=== PATIENT | female | born 1960 | race Caucasian/White ===

== ENCOUNTER 2019-07-17 08:32 | Outpatient (CLI) | payer OTHER, SELFPAY ==
--- NOTE | ~2019-07-17 | US_ITS ---
US right upper quadrant DATE: 07/17/2019 09:32 INDICATION: Elevated liver enzymes TECHNIQUE: Real-time imaging of liver, pancreas, gallbladder areas COMPARISON: 07/19/2016 gallbladder ultrasound 11/30/2017 MRI abdomen examination 11/07/2017 CT abdomen pelvis FINDINGS: No hepatic or pancreatic space-occupying mass lesion is evident. There is hepatic steatosis . No hepatopedal portal venous flow direction. The common bile duct measures 3-6 mm, within normal range. No gallstones or gallbladder wall thickeni ng or abnormal pericholecystic fluid are identified. Negative sonographic Nguyen's sign. IMPRESSION: Hepatic steatosis Reviewed, dictated and finalized at [facility]. Reviewed, dictated and finalized at location A. IMPRESSION: Hepatic steatosis
== END 2019-07-17 08:33 | disposition home or self-care (01) ==
PROVIDERS: PCP Family Medicine; Visit Provider Family Medicine
DX: R74.0 Nonspecific elevation of levels of transaminase and lactic acid dehydrogenase [LDH] (principal); K76.0 Fatty (change of) liver, not elsewhere classified
CPT/HCPCS: 76705

== ENCOUNTER 2019-09-04 07:39 | Outpatient (CLI) | payer OTHER, SELFPAY ==
--- NOTE | ~2019-09-04 | MM_ITS ---
EXAMINATION: MM screening [facility] BI w travon HISTORY: Screening mammogram TECHNIQUE: Craniocaudal and mediolateral oblique 3-D tomosynthesis images were obtained and synthetic 2-D images were generated. CAD analysis was submitted and interpreted. COMPARISON: Comparison to multiple prior studies sequentially, with oldest reviewed study dated 12/09. BREAST PARENCHYMAL COMPOSITION: There are scattered areas of fibroglandular density. FINDINGS: There are postsurgical lumpectomy changes in the right breast. There is no evidence of susp icious mass, calcification, or architectural distortion to suggest malignancy in either breast. There has been no suspicious interval change. IMPRESSION: 1. No mammographic evidence of malignancy. 2. Recommend routine screening mammography in one year. BI-RADS Category 1: Negative Reviewed, dictated and finalized at location A.
== END 2019-09-04 07:40 | disposition home or self-care (01) ==
PROVIDERS: PCP Family Medicine; Visit Provider Family Medicine
DX: Z12.31 Encounter for screening mammogram for malignant neoplasm of breast (principal)
CPT/HCPCS: 77063; 77067

== ENCOUNTER 2019-10-29 11:45 | Emergency (ER) | payer OTHER, SELFPAY ==
--- NOTE | ~2019-10-29 | XR_ITS ---
EXAMINATION: XR chest 1V portable DATE: 10/29/2019 12:52 INDICATION: Headache. TECHNIQUE: A single frontal view of the chest was obtained. COMPARISON: Chest 2 views 05/20/2017, CT abdomen and pelvis 11/07/2017 FINDINGS: The chest demonstrates clear lungs without pneumonia, pleural effusion, or pneumothorax. Th e heart size is normal. There is a prominent right paracardial fat pad. IMPRESSION: 1. No acute cardiopulmonary disease. Reviewed, dictated and finalized at location A.
--- NOTE | ~2019-10-29 | CT_ITS ---
EXAMINATION: CTA brain EXAM DATE: 10/29/2019 13:36 INDICATION: Occipital headache. TECHNIQUE: Noncontrast head CT. Spiral CT angiogram cerebral arteries performed with intravenous in jection of 100 mL Omnipaque 350. Axial, coronal and sagittal images reviewed. Additional reformatted images created on dedicated 3-D workstation. The dose-length product (DLP) for this examination was 970.45 mGy-cm. The exposure was tailored according to patient size, and iterative reconstruction ( ASIR) was used as additional dose reduction technique. Comparison is made to prior examination from . FINDINGS: Minimal right carotid siphon arterial sclerosis without stenosis. There is left-sided post erior communicating artery dominant posterior cerebral artery. There is no distal carotid or verte bral basilar arterial dissection or fibromuscular dysplasia. There are no cerebral artery aneurysms. There is symmetric cerebral artery arborization. The sagittal, transverse and sigmoid sinuses enhance normally, no venous sinus thrombosis. Internal cerebral veins also enhance normally. There is no acute intraparenchymal hemorrhage. No evidence of intraparenchymal brain mass lesion. N o evidence of acute infarction. There is no mass effect or midline shift. There is no obstructive hyd rocephalus suspected. There are no extra-axial collections. There are no calvarial acute fractures. There are no areas of abnormal enhancement on the postcontrast images. IMPRESSION: 1. Unremarkable CTA brain exam. Reviewed, dictated and finalized at location B.
[2019-10-29 11:51] VITALS: BP 156/80; PULSE 94; RESP 18; TEMP 36.5; O2SAT 99
[2019-10-29 11:59] VITALS: BP 156/80; PULSE 94; RESP 18; O2SAT 99
[2019-10-29 12:30] VITALS: BP 125/70; PULSE 92; RESP 21; O2SAT 98
[2019-10-29] MEDS: KETOROLAC 30 MG/ML VIAL (*BKC) IV PUSH (12:44)
--- NOTE | 2019-10-29 12:46 | ED.HA ---
HPI - Headache General Chief Complaint: Headache Stated Complaint: hernández x 2 weeks/dizzy/vomiting Time Seen by Provider: 10/29/19 12:24 Source: patient Mode of arrival: ambulatory Limitations: no limitations History of Present Illness HPI Narrative: 59 years old white female presents with occipital headache, dull aching started 2 weeks ago, constant, no aggravating or relieving factors, probably get worse if she turns her head quickly. Patient reports intermittent radiation to the frontal area which is like sharp stabbing pain. Patient denies any fever, chills, upper respiratory symptoms, sore throat, ear aches, vision abnormality. Patient report been having intermittent nausea in the last 3 days, start vomiting since 2 PM yesterday. Patient denies similar symptoms or exposure to anybody known to have COVID-19. Patient have history of diabetes, hyperlipidemia, hypothyroidism, quit smoking 11 years ago, drinks occasionally, does not use drugs. Related Data Home Medications Medication Instructions Recorded Confirmed gabapentin 300 mg capsule 300 mg PO BID 05/25/19 10/29/19 blood-glucose meter #1 each 10/04/19 10/29/19 glimepiride 2 mg tablet 2 mg PO BID tablet 10/29/19 10/29/19 metformin 500 mg tablet,extended 500 mg PO BID 10/29/19 10/29/19 release 24 hr semaglutide 0.25 mg SUB-Q WEEKLY 10/29/19 10/29/19 Allergies Allergy/AdvReac Type Severity Reaction Status Date / Time codeine AdvReac Unknown Nausea Verified 10/29/19 11:56 hydrocodone AdvReac Unknown Nausea and Verified 10/29/19 11:56 Vomiting morphine AdvReac Unknown Nausea and Verified 10/29/19 11:56 Vomiting Opioids - Morphine Analogues AdvReac Unknown Nausea and Verified 10/29/19 11:56 Vomiting oxycodone AdvReac Unknown Nausea and Verified 10/29/19 11:56 Vomiting OPIOIDS AdvReac Intermediate Vomiting Uncoded 10/29/19 11:56 HYDROMORPHONE HCL AdvReac Unknown Nausea and Uncoded 10/29/19 11:56 Vomiting Review of Systems Review of Systems: Narrative: CONSTITUTIONAL: Denies fever, chills, or sweats. EYES: Denies visual changes, redness, or discharge. ENT: Denies rhinorrhea, congestion, sore throat, or otalgia. CARDIOVASCULAR: Denies chest pain, palpitations, or edema. RESPIRATORY: Denies cough or dyspnea. GASTROINTESTINAL: Denies abdominal pain, nausea, vomiting, or diarrhea. GENITOURINARY: Denies dysuria or hematuria. SKIN: Denies rash or itching. MUSCULOSKELETAL: Denies back pain, joint pain, or myalgia. NEUROLOGIC: Denies headache, numbness, or weakness. PSYCHIATRIC: Denies anxiety or depression. [facility] Past Medical History Medical History Diabetes mellitus, new onset Hyperlipidemia Hypothyroidism Family History Family History Father Diabetes mellitus Family history of lung cancer Family history of coronary artery disease Grandparent Cerebrovascular accident Family history of lung cancer Other Family history of chronic obstructive pulmonary disease Social History Social History Smoking status: Former smoker Smoking end date: 03/10/08 Alcohol intake: current Gender identity (if verbalized by the patient): Female Sexual Orientation (if Verbalized by the Patient): Straight or Heterosexual Exam Narrative: Exam Narrative: General appearance: Well-developed, well-nourished Skin: Normal color Head: Normocephalic, nontraumatic Eyes: Clear conjunctiva ENT: Oropharynx normal, ears normal, nose normal Neck: Supple, nontender Chest and respiratory: Airway patent, no respiratory distress, no accessory muscle use Heart: Regular rate/rhythm Abdomen: Soft, nontender, no organomegaly, quiet bowel sounds Vascular: Normal peripheral pulses, normal capillary refill. Musculoskeletal: Normal range of motion, nontender back Neurologic: Alert and oriented ?3, [employer] is normal as teste
[2019-10-29 12:48] LABS: Basophils Percent Auto 0.5 % (0.2-1.2); Eosinophils Absolute Auto 0.1 K/mm3 (0-0.3); Eosinophils Percent Auto 0.8 % (0-4.4); Hematocrit 52.1 % (37.0-47.0); Hemoglobin 17.1 g/dL (12.0-15.0); Immature Granulocyte Absolute 0.06 K/mm3 (0.00-0.031); Immature Granulocyte Percent A 0.8 % (0-0.5); Lymphocytes Absolute Auto 1.41 K/mm3 (0.9-3.2); Lymphocytes Percent Auto 18.3 % (18.3-44.2); Mean Corpuscular HGB Conc 32.8 g/dl (32-36); Mean Corpuscular Hemoglobin 29.9 pg (26-34); Mean Corpuscular Volume 91.1 fl (80-100); Mean Platelet Volume 10.3 fl (7.4-10.4); Monocytes Absolute Auto 0.4 K/mm3 (0.1-0.6); Monocytes Percent Auto 4.8 % (2.6-8.5); Neutrophils Absolute Auto 5.8 K/mm3 (1.3-6.7); Neutrophils Percent Auto 74.8 % (45.5-73.1); Platelet Count Result 153 k/mm3 (150-375); Red Blood Count 5.72 M/mm3 (4.2-5.4); Red Cell Distribution Width 13.5 % (11.5-14.5); White Blood Count 7.7 K/mm3 (4.5-10.0)
[2019-10-29 12:59] LABS: Alanine Aminotransferase 95 U/L (4-35); Albumin Level 4.7 g/dL (3.5-5.1); Alkaline Phosphatase 80 U/L (38-126); Anion Gap 10 mmol/L (8-16); Aspartate Amino Transferase 77 U/L (14-36); Blood Urea Nitrogen 12 mg/dL (7-17); Calcium 9.4 mg/dL (8.4-10.2); Carbon Dioxide 31 mmol/L (22-30); Chloride 96 mmol/L (98-107); Estimated CRCL calculation 100 ml/min; Estimated Glomerular Filt Rate > 60; Glucose 196 mg/dL (65-105); Potassium 3.9 mmol/L (3.4-5.0); Sodium 137 mmol/L (137-145)
[2019-10-29 13:02] LABS: CRP 1.2 mg/dL (<1.0)
--- NOTE | 2019-10-29 13:17 | PC.NURSE ---
PT AMBULATORY WITH STEADY GAIT TO RESTROOM
--- NOTE | 2019-10-29 13:27 | PC.NURSE ---
PT TO CT
[2019-10-29 13:35] LABS: Erythrocyte Sedimentation Rate 8 mm/hr (0-20)
[2019-10-29 13:46] VITALS: BP 137/77; PULSE 85; RESP 18; O2SAT 95
[2019-10-29 13:50] LABS: Add Urine Microscopic? YES; Appearance Urine Clear (Clear); Bilirubin Urine Negative (Negative); Blood Urine Negative (Negative); Color Urine Yellow (Yellow); Glucose Urine UA 1+ mg/dL (Negative); Ketones Urine Trace mg/dL (Negative); Leukocyte Esterase Ur Negative LEU/UL (Negative); Mucus Urine Few /lpf; Nitrate Urine Negative (Negative); Protein Urine Negative (Negative); Specific Grav Ur 1.018 (1.001-1.035); Squamous Epithelial Cell Urine Moderate /hpf (Few); Transitional Epi Cells Urine Rare /hpf (None Seen)
[2019-10-29 14:28] VITALS: BP 134/81; PULSE 77; RESP 18; O2SAT 95
--- NOTE | 2019-10-29 15:11 | PC.NURSE ---
PT PO CHALLENGED AT THIS TIME, PER ERP DUNN VERBAL ORDER.
[2019-10-29 15:43] VITALS: BP 136/83; PULSE 92; RESP 15; O2SAT 98
== END 2019-10-29 15:44 | disposition home or self-care (01) ==
PROVIDERS: Emergency Provider Emergency Medicine; PCP Family Medicine
DX: R51 Headache (principal); E11.9 Type 2 diabetes mellitus without complications; Z79.84 Long term (current) use of oral hypoglycemic drugs; E03.9 Hypothyroidism, unspecified; Z87.891 Personal history of nicotine dependence
CPT/HCPCS: 36415; 70496; 71045; 80053; 81001; 85025; 85652; 86140; 96374; 99284; J1885; Q9967

== ENCOUNTER 2020-01-24 07:52 | Outpatient (CLI) | payer OTHER, SELFPAY ==
--- NOTE | ~2020-01-24 | DEXA_ITS ---
Bone Density Report Name: Rola Zaragoza Age: 59 Sex: Female Ethnicity: White Date of : 1960 Indication: postmenopausal; prior fracture; cancer; hysterectomy; Referring Provider: Landon, Vivian García Study: Bone densitometry was performed. Exam Date: January 24, 2020 Accession number: [id number] Bone Density: Region BMD T-score Z-score Classification AP Spine (L3, L4) 1.068 -0.3 1.1 Normal Femoral Neck (Left) 0.825 -0.2 1.0 Normal Total Hip (Left) 1.024 0.7 1.6 Normal Total Hip Bilateral Avg 1.012 0.6 1.5 Normal Femoral Neck (Right) 0.853 0.0 1.3 Normal Total Hip (Right) 0.998 0.5 1.4 Normal World Health Organization criteria for BMD impression classify patients as: Normal (T-score at or above -1.0), Osteopenia (T-score between -1.0 and -2.5), or Osteoporosis (T-score at or below -2.5). 10-year Fracture Risk: FRAX not reported because: All T-scores for Spine Total, Hip Total, Femoral Neck at or above -1.0 Clinical Information Provided by Patient: Has had a low trauma fracture Has used the following medications: Vitamin D Has the following medical conditions: Cancer, Hysterectomy Patient maximum height was 64 Menopause Age: 50 Drinks caffeinated beverages Onset of menses at age 16 Number of children 2 Impression: The patient has normal bone mass. The patient has risk factors, including: previous fracture. Discussion: BONE DENSITY IS ABOVE THE MINIMUM DESIRABLE LEVEL AT ALL SKELETAL SITES TESTED. This patient?s bone mineral density is above the minimum desirable level (T-score -1.0 or better) at all sites measured. The patient should follow a healthful lifestyle (good nutrition with adequate calcium and vitamin D, and appropriate weight-bearing exercise). Follow-Up: Consider repeating this study in 5 years or sooner if there is some new clinical indication. Reported by: [facility] on 01/24/2020 8:15:00 AM. Reviewed, dictated and finalized at location A.
== END 2020-01-24 07:53 | disposition home or self-care (01) ==
LOC: ANHIMG 07:55
PROVIDERS: PCP Family Medicine; Referring Provider Internal Medicine Medical Oncology; Visit Provider Internal Medicine Endocrinology, Diabetes & Metabolism
DX: N95.9 Unspecified menopausal and perimenopausal disorder (principal); Z78.0 Asymptomatic menopausal state
CPT/HCPCS: 77080

== ENCOUNTER 2020-05-08 09:15 | Outpatient (RCR) | payer OTHER, SELFPAY ==
[2020-03-16 14:05] VITALS: BMI 30.2
[2020-03-16 14:07] VITALS: BMI 30.2
== END 2020-05-30 16:53 | disposition home or self-care (01) ==
LOC: ANHDMC 09:15
PROVIDERS: PCP Family Medicine
DX: E11.65 Type 2 diabetes mellitus with hyperglycemia (principal); Z71.3 Dietary counseling and surveillance; Z71.89 Other specified counseling
CPT/HCPCS: 97802; G0108

== ENCOUNTER → 2020-07-28 07:31 | Outpatient (CLI) | payer OTHER, SELFPAY ==
[2020-07-28 19:22] LABS: SARS-CoV-2 RNA PCR Negative
== END ==
PROVIDERS: PCP Family Medicine; Visit Provider Internal Medicine Gastroenterology
DX: Z01.812 Encounter for preprocedural laboratory examination (principal); Z20.822 Contact with and (suspected) exposure to COVID-19
CPT/HCPCS: C9803; U0003; U0005

== ENCOUNTER 2020-07-31 00:50 | Day surgery (SDC) | payer OTHER, SELFPAY ==
[2020-07-24 10:17] VITALS: BMI 30.6
[2020-07-31 09:01] VITALS: BP 145/83; PULSE 85; RESP 18; TEMP 36.1; O2SAT 97; BMI 30.7
--- NOTE | 2020-07-31 09:03 | WPDANESEPPF ---
Anes - Initial Pre Proc Eval Procedure: Operation Date: 07/31/20 09:45 Proposed Procedures p Screening Colonoscopy - Carlitos Cade MD Date/Time: 07/31/20 09:03 Surgeon: Carlitso Cade MD Pre Op Diagnosis: neoplasm screening Patient Data Age: 60 Gender: F Height: 5 ft 4 in Weight: 81 kg Allergies Allergy/AdvReac Type Severity Reaction Status Date / Time codeine AdvReac Unknown Nausea Verified 07/31/20 08:58 hydrocodone AdvReac Unknown Nausea and Verified 07/31/20 08:58 Vomiting morphine AdvReac Unknown Nausea and Verified 07/31/20 08:58 Vomiting Opioids - Morphine Analogues AdvReac Unknown Nausea and Verified 07/31/20 08:58 Vomiting oxycodone AdvReac Unknown Nausea and Verified 07/31/20 08:58 Vomiting OPIOIDS AdvReac Intermediate Vomiting Uncoded 07/31/20 08:58 HYDROMORPHONE HCL AdvReac Unknown Nausea and Uncoded 07/31/20 08:58 Vomiting Home Medications Medication Instructions Recorded Confirmed Type gabapentin 300 mg capsule 300 mg PO BID 05/25/19 07/31/20 History blood sugar diagnostic #100 each 07/22/19 07/31/20 Rx blood sugar diagnostic #100 each 08/16/19 07/31/20 Rx blood-glucose meter #1 each 10/04/19 07/31/20 History acetaminophen-caffeine [Excedrin 1 tablet PO Q6H PRN #20 tablet 10/29/19 07/31/20 Rx Tension Headache] metformin 500 mg tablet,extended 500 mg PO BID 10/29/19 07/31/20 History release 24 hr semaglutide 0.5 mg SUB-Q WEEKLY 10/29/19 07/31/20 History levothyroxine 50 mcg tablet 50 mcg PO DAILY #90 tablet 01/24/20 07/31/20 Rx insulin degludec 100 unit/mL (3 30 unit SUBCUT QPM 01/31/20 07/31/20 History mL) subcutaneous pen insulin lispro 100 unit/mL 1 sliding scale dose SUBCUT 01/31/20 07/31/20 History subcutaneous cartridge USEASDIRECTD atorvastatin 20 mg PO DAILY 07/24/20 07/31/20 History black cohosh 540 mg PO DAILY 07/24/20 07/31/20 History cholecalciferol (vitamin D3) 50 mcg PO DAILY 07/24/20 07/31/20 History [Vitamin D3] esomeprazole magnesium 40 mg PO BID 07/24/20 07/31/20 History fenofibrate 160 mg PO HS 07/24/20 07/31/20 History wothqznf-apyg-ET-calcium-mins 1 tablet PO DAILY 07/24/20 07/31/20 History [Women's One Daily] Patient hx anesthesia problems: none Family hx anesthesia problems: none PMFSH Past Medical History Medical History (Updated 07/31/20 @ 09:03 by Ronaldo Santiago MD) Breast cancer Diabetes mellitus, new onset HTN (hypertension) Hyperlipidemia Hypothyroidism Family History Family History Father Diabetes mellitus Family history of lung cancer Family history of coronary artery disease Grandparent Cerebrovascular accident Family history of lung cancer Other Family history of chronic obstructive pulmonary disease Social History Social History Smoking packs per day: 1 Smoking cigarettes per day: 20.0 Years smoked: 30 Smoking pack-years: 30.00 Smoking status: Former smoker Tobacco type: cigarettes Smoking end date: 03/10/08 Alcohol intake: current Substance use: never Substance use type: does not use Living arrangements: with family Gender identity (if verbalized by the patient): Female Spiritual care concerns: No Anes - Eval Final PreProcedure Day of Procedure 07/31/20 09:03 Patient weight: obese Heart: regular rate and rhythm Lungs: clear to auscultation Airway: Mallampati scale class II Neurological: alert and oriented Last oral intake: >/= 8 hours ASA classification: III Emergent: no Anesthetic plan: proceed Anesthesia type and monitoring: general GIVS and standard monitoring Informed Consent: The patient's anesthetic plan and its attendant risks and benefits were discussed with the patient/family/POA. Questions were solicited and answers provided to the satisfaction of the patient/family/POA.
[2020-07-31] MEDS: LACTATED RINGERS 1,000 ML 150 ML IV CONT (09:06)
[2020-07-31 09:14] LABS: Glucose Point of Care 114 mg/dl (65-105)
--- NOTE | 2020-07-31 09:49 | PM.HPGS ---
History of Present Illness History of Present Illness Consent: Risks, benefits, and alternatives have been discussed and questions answered. Patient agrees to proceed with procedure. Chief complaint: neoplasm screening Narrative: Rola Zaragoza is a 60 year old female here for screening colonoscopy, last one 10 years ago Review of Systems Constitutional: Constitutional: Denies headache(s) and Denies weakness Eyes: Eyes: Denies blurry vision ENT: Reports Normal hearing present, Denies headache(s) and Denies neck pain Cardiovascular: Cardiovascular: Denies chest pain and Denies dyspnea Respiratory: Respiratory: Denies dyspnea Gastrointestinal: Gastrointestinal: Reports no additional gastrointestinal complaints Genitourinary: Genitourinary: Denies dysuria Musculoskeletal: Musculoskeletal: Denies neck pain Integumentary/Breasts: Skin/Breast: Denies dry skin Neurologic: Reports Normal hearing present, Denies headache(s) and Denies weakness Psychiatric: Psychiatric: Denies anxiety Endocrine: Endocrine: Denies change in body appearance Hematologic/Lymphatic: Hematologic/Lymphatic: Denies easy bleeding Allergic/Immunologic: Allergic/Immunologic: Denies urticaria PMFSH Past Medical History Medical History (Updated 07/31/20 @ 09:03 by Ronaldo Santiago MD) Breast cancer Diabetes mellitus, new onset HTN (hypertension) Hyperlipidemia Hypothyroidism Family History Family History Father Diabetes mellitus Family history of lung cancer Family history of coronary artery disease Grandparent Cerebrovascular accident Family history of lung cancer Other Family history of chronic obstructive pulmonary disease Social History Social History Smoking packs per day: 1 Smoking cigarettes per day: 20.0 Years smoked: 30 Smoking pack-years: 30.00 Smoking status: Former smoker Tobacco type: cigarettes Smoking end date: 03/10/08 Alcohol intake: current Substance use: never Substance use type: does not use Living arrangements: with family Gender identity (if verbalized by the patient): Female Spiritual care concerns: No Meds Home Medications and Allergies Home Medications Medication Instructions Recorded Confirmed Type gabapentin 300 mg capsule 300 mg PO BID 05/25/19 07/31/20 History blood sugar diagnostic #100 each 07/22/19 07/31/20 Rx blood sugar diagnostic #100 each 08/16/19 07/31/20 Rx blood-glucose meter #1 each 10/04/19 07/31/20 History acetaminophen-caffeine [Excedrin 1 tablet PO Q6H PRN #20 tablet 10/29/19 07/31/20 Rx Tension Headache] metformin 500 mg tablet,extended 500 mg PO BID 10/29/19 07/31/20 History release 24 hr semaglutide 0.5 mg SUB-Q WEEKLY 10/29/19 07/31/20 History levothyroxine 50 mcg tablet 50 mcg PO DAILY #90 tablet 01/24/20 07/31/20 Rx insulin degludec 100 unit/mL (3 30 unit SUBCUT QPM 01/31/20 07/31/20 History mL) subcutaneous pen insulin lispro 100 unit/mL 1 sliding scale dose SUBCUT 01/31/20 07/31/20 History subcutaneous cartridge USEASDIRECTD atorvastatin 20 mg PO DAILY 07/24/20 07/31/20 History black cohosh 540 mg PO DAILY 07/24/20 07/31/20 History cholecalciferol (vitamin D3) 50 mcg PO DAILY 07/24/20 07/31/20 History [Vitamin D3] esomeprazole magnesium 40 mg PO BID 07/24/20 07/31/20 History fenofibrate 160 mg PO HS 07/24/20 07/31/20 History nrospeaf-srod-EM-calcium-mins 1 tablet PO DAILY 07/24/20 07/31/20 History [Women's One Daily] Allergies Allergy/AdvReac Type Severity Reaction Status Date / Time codeine AdvReac Unknown Nausea Verified 07/31/20 08:58 hydrocodone AdvReac Unknown Nausea and Verified 07/31/20 08:58 Vomiting morphine AdvReac Unknown Nausea and Verified 07/31/20 08:58 Vomiting Opioids - Morphine Analogues AdvReac Unknown Nausea and Verified 07/31/20 08:58 Vomiting oxycodone AdvReac Unknown Na
[2020-07-31 10:12] VITALS: BP 135/82; PULSE 88; RESP 14; O2SAT 97
[2020-07-31 10:22] VITALS: BP 152/83; PULSE 93; RESP 20; O2SAT 97
--- NOTE | 2020-07-31 10:25 | SUR.PHASEII ---
Pt Dexcom sensor reading is 126 post operatively.
[2020-07-31 10:32] VITALS: BP 146/86; PULSE 84; RESP 17; O2SAT 95
== END 2020-07-31 10:41 | disposition home or self-care (01) ==
PROVIDERS: PCP Family Medicine; Visit Provider Internal Medicine Gastroenterology
PROC: 0DJD8ZZ Inspection of Lower Intestinal Tract, Via Natural or Artificial Opening Endoscopic (ICD-10-PCS; CPT 45378; principal; 2020-07-31 09:45)
DX: Z12.11 Encounter for screening for malignant neoplasm of colon (principal); K57.30 Diverticulosis of large intestine without perforation or abscess without bleeding; K64.8 Other hemorrhoids; I10 Essential (primary) hypertension; E11.9 Type 2 diabetes mellitus without complications; E78.5 Hyperlipidemia, unspecified; E03.9 Hypothyroidism, unspecified; Z87.891 Personal history of nicotine dependence; Z80.1 Family history of malignant neoplasm of trachea, bronchus and lung
CPT/HCPCS: 45378; 82948; C9803; J2704; J7120; U0003; U0005

== ENCOUNTER 2020-10-24 17:21 | Outpatient (CLI) | payer OTHER, SELFPAY ==
--- NOTE | ~2020-10-24 | XR_ITS ---
XR shoulder RT min 2V DATE: 10/24/2020 17:43 INDICATION: Right shoulder pain, no injury. History of right breast cancer. TECHNIQUE: 5 views COMPARISON: None FINDINGS: Surgical clips overlie the right axillary area consistent with right axillary node dissecti on in this patient with given history of right breast cancer. There is degenerative spurring of the thoracic spine. No fracture, dislocation, periosteal reaction or bone destruction of the right shoulder is evident. N ormal alignment at the acromioclavicular and glenohumeral joints. There is mild periarticular spurring of the glenoid process consistent with right glenohumeral osteoa rthritis. No significant abnormal soft tissue calcification of the right shoulder. IMPRESSION: Mild right glenohumeral osteoarthritis. No other significant abnormality of the right shoulder. As well as right axillary node dissection Reviewed, dictated and finalized at location A.
== END 2020-10-24 17:22 | disposition home or self-care (01) ==
LOC: ANHIMG 17:24
PROVIDERS: PCP Family Medicine; Visit Provider Internal Medicine Medical Oncology
DX: C50.211 Malignant neoplasm of upper-inner quadrant of right female breast (principal); Z17.1 Estrogen receptor negative status [ER-]; M19.011 Primary osteoarthritis, right shoulder
CPT/HCPCS: 73030

== ENCOUNTER 2020-11-22 02:50 | Day surgery (SDC) | payer OTHER, SELFPAY ==
[2020-11-15 16:24] VITALS: BMI 31.0
--- NOTE | 2020-11-22 07:36 | WPDANESEPPF ---
Anes - Initial Pre Proc Eval Procedure: Operation Date: 11/22/20 09:00 Proposed Procedures p Esophagogastroduodenoscopy - Bay Walsh MD Date/Time: 11/22/20 07:36 Surgeon: Bay Walsh MD Pre Op Diagnosis: GERD, Hedrick's Esophagus Patient Data Age: 60 Gender: F Height: 1.63 m Weight: 82 kg Allergies Allergy/AdvReac Type Severity Reaction Status Date / Time codeine AdvReac Unknown Nausea Verified 11/22/20 07:47 hydrocodone AdvReac Unknown Nausea and Verified 11/22/20 07:47 Vomiting morphine AdvReac Unknown Nausea and Verified 11/22/20 07:47 Vomiting Opioids - Morphine Analogues AdvReac Unknown Nausea and Verified 11/22/20 07:47 Vomiting oxycodone AdvReac Unknown Nausea and Verified 11/22/20 07:47 Vomiting lisinopril AdvReac Cough Verified 11/22/20 07:47 OPIOIDS AdvReac Intermediate Vomiting Uncoded 11/22/20 07:47 HYDROMORPHONE HCL AdvReac Unknown Nausea and Uncoded 11/22/20 07:47 Vomiting Home Medications Medication Instructions Recorded Confirmed Type gabapentin 300 mg capsule 300 mg PO BID 05/25/19 11/15/20 History blood sugar diagnostic #100 each 07/22/19 10/30/20 Rx acetaminophen-caffeine [Excedrin 1 tablet PO Q6H PRN #20 tablet 10/29/19 11/15/20 Rx Tension Headache] metformin 500 mg tablet,extended 500 mg PO BID 10/29/19 11/15/20 History release 24 hr semaglutide 0.5 mg SUB-Q WEEKLY 10/29/19 11/15/20 History levothyroxine 50 mcg tablet 50 mcg PO DAILY #90 tablet 01/24/20 11/15/20 Rx insulin lispro 100 unit/mL 1 sliding scale dose SUBCUT 01/31/20 11/15/20 History subcutaneous cartridge USEASDIRECTD black cohosh 540 mg PO DAILY 07/24/20 11/15/20 History cholecalciferol (vitamin D3) 50 mcg PO DAILY 07/24/20 11/15/20 History [Vitamin D3] esomeprazole magnesium 40 mg PO BID 07/24/20 11/15/20 History fenofibrate 160 mg PO HS 07/24/20 11/15/20 History ginralnv-gubi-SC-calcium-mins 1 tablet PO DAILY 07/24/20 11/15/20 History [Women's One Daily] atorvastatin 20 mg tablet See Rx Instructions .ROUTE 09/15/20 11/15/20 Rx .COMPLEX #90 tablet insulin degludec 100 unit/mL (3 30 unit SUBCUT QPM ml 10/02/20 11/15/20 History mL) subcutaneous pen losartan 25 mg tablet 25 mg PO DAILY #90 tablet 10/30/20 11/15/20 Rx Patient hx anesthesia problems: none Family hx [facility] problems: [facility] Past Medical History Medical History (Updated 11/22/20 @ 08:11 by Jones Duarte DO) Breast cancer delivery delivered 1988 and 1992 Diabetes mellitus, new onset HTN (hypertension) Hyperlipidemia Hypothyroidism Surgical History Surgical History (Updated 11/06/20 @ 11:13 by Shawn Aguilera MD) H/O: hysterectomy (~2010) Total History of hernia surgery (~2016) History of lumpectomy of right breast (~2012) Family History Family History Father Diabetes mellitus Family history of lung cancer Family history of coronary artery disease Grandparent Cerebrovascular accident Family history of lung cancer Other Family history of chronic obstructive pulmonary disease Social History Social History Smoking packs per day: 1 Smoking cigarettes per day: 20.0 Years smoked: 30 Smoking pack-years: 30.00 Smoking status: Former smoker Tobacco type: cigarettes Smoking end date: 03/10/08 Alcohol intake: current Alcohol use details: very rarely Substance use: never Substance use type: does not use Living arrangements: with family Gender identity (if verbalized by the patient): Female Sexual Orientation (if Verbalized by the Patient): Straight or Heterosexual Spiritual care concerns: No Anes - Eval Final PreProcedure Day of Procedure 11/22/20 07:36 Patient weight: obese Heart: regular rate and rhythm Lungs: clear to auscultation and normal air movement Airway: Mallampati scale class II
[2020-11-22 07:49] VITALS: BP 148/77; PULSE 91; RESP 20; TEMP 36.1; O2SAT 98
--- NOTE | 2020-11-22 07:58 | WPDHPUPDATE1 ---
History and Physical Update Update Date/Time: 11/22/20 07:58 History and Physical has been reviewed, including an updated exam of the patient. There are NO changes in the patient's condition. Risks, benefits, and alternatives have been discussed and questions answered. Patient agrees to proceed with procedure.
[2020-11-22] MEDS: LACTATED RINGERS 1,000 ML 150 ML IV CONT (08:00)
[2020-11-22 08:33] LABS: Glucose Point of Care 123 mg/dl (65-105)
[2020-11-22 08:40] VITALS: BP 138/76; PULSE 99; RESP 99; O2SAT 99
[2020-11-22 08:50] VITALS: BP 129/71; PULSE 100; RESP 36; O2SAT 99
[2020-11-22 09:00] VITALS: BP 137/74; PULSE 85; RESP 26; O2SAT 100
[2020-11-22 09:03] LABS: Glucose Point of Care 104 mg/dl (65-105)
== END 2020-11-22 09:25 | disposition home or self-care (01) ==
PROVIDERS: PCP Family Medicine; Visit Provider Internal Medicine Gastroenterology
PROC: 0DJ08ZZ Inspection of Upper Intestinal Tract, Via Natural or Artificial Opening Endoscopic (ICD-10-PCS; CPT 43235; principal; 2020-11-22 09:00)
DX: R11.2 Nausea with vomiting, unspecified (principal); K22.70 Barrett's esophagus without dysplasia; I10 Essential (primary) hypertension; E11.9 Type 2 diabetes mellitus without complications; E78.5 Hyperlipidemia, unspecified; E03.9 Hypothyroidism, unspecified; Z85.3 Personal history of malignant neoplasm of breast; Z87.891 Personal history of nicotine dependence; E66.9 Obesity, unspecified; Z68.31 Body mass index [BMI] 31.0-31.9, adult; Z79.84 Long term (current) use of oral hypoglycemic drugs; Z79.4 Long term (current) use of insulin
CPT/HCPCS: 43239; 82948; 87081; 88305; J2704; J7120

== ENCOUNTER 2020-12-06 10:34 | Emergency (ER) | payer OTHER, SELFPAY ==
[2020-12-06] VITALS (11 sets, daily range): BP systolic 140–169; BP diastolic 75–86; PULSE 88–97; RESP 16–22; TEMP 36.8; O2SAT 94–100
--- NOTE | ~2020-12-06 | XR_ITS ---
EXAMINATION: XR chest 2V EXAM DATE: 12/06/2020 11:02 INDICATION: Dyspnea. TECHNIQUE: Frontal and lateral projections of the chest obtained and reviewed. Comparison is made to prior examination from 10/29/2019, 05/20/2017. FINDINGS: Some ill-defined right lower lobe airspace disease suspected, could be developing pneumoni a. There is no pneumothorax suspected. There are no pleural effusions. There are no osseous abnormali ties identified. Cardiomediastinal silhouette is normal. IMPRESSION: Suspect ill-defined right lower lobe acute airspace disease. Please clinically correlate . Reviewed, dictated and finalized at location A. IMPRESSION: Suspect ill-defined right lower lobe acute airspace disease. Pleas e clinically correlate.
--- NOTE | ~2020-12-06 | CT_ITS ---
EXAMINATION: CTA chest PE protocol DATE: 12/06/2020 11:39 INDICATION: Shortness of breath, sudden onset TECHNIQUE: Computed tomography angiography (CTA) of the chest was performed with 100 mL Omnipaque-350 intravenous contrast timed to evaluate the pulmonary arteries. Coronal maximum intensity projection 3D-reconstructions were created by the technologist. Automated exposure control and iterative reconst ruction technique were employed. Exam dose: 584.51 mGy-cm total exam DLP. COMPARISON: 12/06/2020 PA and lateral chest 09/04/2019 bilateral digital screening mammogram 07/04/2015 bilateral digital screening mammogram FINDINGS: There is diagnostic contrast enhancement of the pulmonary arteries and no evidence of pulmo nary embolism. No thoracic aortic aneurysm or dissection. Heart size is within normal range. No pericardial or pleural effusion. No hilar or mediastinal mass lesion or lymphadenopathy. There are surgical clips in the area of soft tissue density in the medial aspect of the upper inner q uadrant of the right breast. There is some underlying probable linear scarring, possibly postoperativ e radiation change, in the underlying anterior right lung. There is patchy consolidation in the right lower lobe and mild patchy infiltrate in the left lower lo be Small sliding hiatal hernia. Normal morphology of the adrenal glands. Degenerative spurring of the thoracic spine. Osteopenia. IMPRESSION: Bilateral lower lobe pneumonia, right greater than left No evidence of pulmonary embolism Status post right partial mastectomy for breast cancer, with residual scar deformity and suggestion o f underlying mild postoperative radiation change of the anterior right lung Reviewed, dictated and finalized at Location A. Reviewed, dictated and finalized at location B. IMPRESSION: Bilateral lower lobe pneumonia, right greater than left No evidence of pulmonary embolism Status post right partial mastectomy for breast cancer, with residual scar defo rmity and suggestion of underlying mild postoperative radiation change of the a nterior right lung
--- NOTE | 2020-12-06 10:40 | ECG_ITS ---
Measurements Intervals [place] Rate: 87 P: -16 MO: 108 QRS: -6 QRSD: 100 T: -12 QT: 370 QTc: 446 Interpretive Statements SINUS RHYTHM WITH SHORT MO INTERVAL INCOMPLETE RIGHT BUNDLE BRANCH BLOCK BORDERLINE ST-T WAVE ABNORMALITY- ANT/INF LEADS BASELINE ARTIFACT- I, II, III, AVR, AVL, AVF, V1, V3-V6 ABNORMAL ECG Electronically Signed On 12-06-2020 11:37:14 CDT by Braeden Caldwell D.O.
[2020-12-06 11:01] LABS: Basophils Percent Auto 0.2 % (0.2-1.2); Eosinophils Absolute Auto 0.1 K/mm3 (0-0.3); Hematocrit 40.1 % (37.0-47.0); Hemoglobin 13.1 g/dL (12.0-15.0); Immature Granulocyte Absolute 0.04 K/mm3 (0.00-0.031); Immature Granulocyte Percent A 0.4 % (0-0.5); Immature Platelet Fraction Pct 3.6 % (0.9-11.2); Lymphocytes Absolute Auto 1.15 K/mm3 (0.9-3.2); Lymphocytes Percent Auto 12.5 % (18.3-44.2); Mean Corpuscular HGB Conc 32.7 g/dl (32-36); Mean Corpuscular Hemoglobin 30.6 pg (26-34); Mean Corpuscular Volume 93.7 fl (80-100); Mean Platelet Volume 9.9 fl (7.4-10.4); Monocytes Absolute Auto 0.5 K/mm3 (0.1-0.6); Monocytes Percent Auto 4.9 % (2.6-8.5); Neutrophils Absolute Auto 7.5 K/mm3 (1.3-6.7); Platelet Count Result 137 k/mm3 (150-375); Red Blood Count 4.28 M/mm3 (4.2-5.4); Red Cell Distribution Width 13.2 % (11.5-14.5); White Blood Count 9.2 K/mm3 (4.5-10.0)
[2020-12-06 11:18] LABS: Anion Gap 11 mmol/L (8-16); Blood Urea Nitrogen 21 mg/dL (7-17); Calcium 8.9 mg/dL (8.4-10.2); Carbon Dioxide 26 mmol/L (22-30); Chloride 103 mmol/L (98-107); Estimated CRCL calculation 112 ml/min; Estimated Glomerular Filt Rate > 60; Glucose 158 mg/dL (65-110); Potassium 3.5 mmol/L (3.4-5.0); Sodium 140 mmol/L (137-145)
--- NOTE | 2020-12-06 11:27 | ED.SOB ---
HPI - SOB/Dyspnea General Chief Complaint: Shortness of Breath/Dyspnea Stated Complaint: cannot catch breath, sent uc Time Seen by Provider: 12/06/20 11:06 History of Present Illness HPI Narrative: Patient presents with sudden onset of shortness of breath around 0730 this morning. 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 She denies any association with pain such as chest pain or abdominal pain. She denies any nausea or vomiting. She denies any recent illness such as fever, cough, congestion. Reports she still feels short of breath and in general just feels fatigued. She does report history of malignancy Related Data Home Medications Medication Instructions Recorded Confirmed gabapentin 300 mg capsule 300 mg PO BID 05/25/19 11/15/20 metformin 500 mg tablet,extended 500 mg PO BID 10/29/19 11/15/20 release 24 hr semaglutide 0.5 mg SUB-Q WEEKLY 10/29/19 11/15/20 insulin lispro 100 unit/mL 1 sliding scale dose SUBCUT 01/31/20 11/15/20 subcutaneous cartridge USEASDIRECTD black cohosh 540 mg PO DAILY 07/24/20 11/15/20 cholecalciferol (vitamin D3) 50 mcg PO DAILY 07/24/20 11/15/20 [Vitamin D3] fenofibrate 160 mg PO HS 07/24/20 11/15/20 mrzmbkuc-ahlj-FT-calcium-mins 1 tablet PO DAILY 07/24/20 11/15/20 [Women's One Daily] insulin degludec 100 unit/mL (3 30 unit SUBCUT QPM ml 10/02/20 11/15/20 mL) subcutaneous pen Allergies Allergy/AdvReac Type Severity Reaction Status Date / Time codeine AdvReac Unknown Nausea Verified 12/06/20 10:45 hydrocodone AdvReac Unknown Nausea and Verified 12/06/20 10:45 Vomiting morphine AdvReac Unknown Nausea and Verified 12/06/20 10:45 Vomiting Opioids - Morphine Analogues AdvReac Unknown Nausea and Verified 12/06/20 10:45 Vomiting oxycodone AdvReac Unknown Nausea and Verified 12/06/20 10:45 Vomiting lisinopril AdvReac Cough Verified 12/06/20 10:45 OPIOIDS AdvReac Intermediate Vomiting Uncoded 12/06/20 10:45 HYDROMORPHONE HCL AdvReac Unknown Nausea and Uncoded 12/06/20 10:45 Vomiting Review of Systems Review of Systems: CONSTITUTIONAL: Denies fever, chills, or sweats. EYES: Denies visual changes, redness, or discharge. ENT: Denies rhinorrhea, congestion, sore throat, or otalgia. CARDIOVASCULAR: Denies chest pain, palpitations, or edema. RESPIRATORY: Denies cough GASTROINTESTINAL: Denies abdominal pain, nausea, vomiting, or diarrhea. GENITOURINARY: Denies dysuria or hematuria. SKIN: Denies rash or itching. MUSCULOSKELETAL: Denies back pain, joint pain, or myalgia. NEUROLOGIC: Denies headache, numbness, dizziness, or weakness. PSYCHIATRIC: Denies anxiety or depression. All systems reviewed & are unremarkable except as noted in HPI and below PMFSH Past Medical History Medical History Breast cancer delivery delivered 1988 and 1992 Diabetes mellitus, new onset HTN (hypertension) Hyperlipidemia Hypothyroidism Surgical History Surgical History H/O: hysterectomy (~2010) Total History of hernia surgery (~2016) History of lumpectomy of right breast (~2012) Family History Family History Father Diabetes mellitus Family history of lung cancer Family history of coronary artery disease Grandparent Cerebrovascular accident Family history of lung cancer Other Family history of chronic obstructive pulmonary disease Social History Social History Smoking packs per day: 1 Smoking cigarettes per day: 20.0 Years smoked: 30 Smoking pack-years: 30.00 Smoking status: Former smoker Tobacco type: cigarettes Smoking end date: 03/10/08 Alcohol intake: current Alcohol use details: very rarely Substance use: never Substance use type:
[2020-12-06 12:07] LABS: Troponin I < 0.012 ng/mL (0.000-0.034)
[2020-12-06] MEDS: SODIUM CHLORIDE 0.9% IV 1,000 ML 999 ML IV CONT (12:10)
== END 2020-12-06 13:31 | disposition home or self-care (01) ==
PROVIDERS: Emergency Medicine; Emergency Provider Emergency Medicine; PCP Family Medicine
DX: J18.9 Pneumonia, unspecified organism (principal); E11.9 Type 2 diabetes mellitus without complications; I10 Essential (primary) hypertension; E78.5 Hyperlipidemia, unspecified; E03.9 Hypothyroidism, unspecified; Z79.4 Long term (current) use of insulin; Z90.11 Acquired absence of right breast and nipple; Z85.3 Personal history of malignant neoplasm of breast; Z87.891 Personal history of nicotine dependence
CPT/HCPCS: 36415; 71046; 71275; 80048; 84484; 85025; 85055; 93005; 96360; 99284; J7030; Q9967

== ENCOUNTER 2020-12-19 16:45 | Outpatient (CLI) | payer OTHER, SELFPAY ==
--- NOTE | ~2020-12-19 | MR_ITS ---
EXAMINATION: MR shoulder RT wo con DATE: 12/19/2020 17:39 INDICATION: Right shoulder pain. TECHNIQUE: Magnetic resonance imaging (MRI) of the right shoulder was performed without intravenous c ontrast. Sequences included axial PD-weighted FS FSE, coronal oblique PD-weighted FS FSE and T2-weigh jose manuel FS FSE, and sagittal oblique T2-weighted FS FSE and T1-weighted FSE. COMPARISON: Right shoulder radiographs 10/24/2020 FINDINGS: Coracoacromial arch: The acromion undersurface is curved in morphology (type II). There is mild acromioclavicular joint os teoarthritis. There is moderate subacromial/subdeltoid bursitis. Rotator cuff: There is severe supraspinatus tendinopathy. There is a near full-thickness tear of supraspinatus tend on measuring 3.1 cm proximal to distal by 1.5 cm anterior to posterior. Infraspinatus and teres minor tendons are normal. There is mild subscapularis tendinopathy. There is no asymmetric fatty atrophy o f the rotator cuff muscle bellies. Biceps tendon and glenoid labrum: Biceps tendon is in bicipital groove. There is mild intra-articular biceps tendinopathy. There is a t ear of superior labrum from 11:00 to 1:00 (SLAP tear). Fluid: There is no glenohumeral joint effusion. Bones/cartilage: There is shallow partial-thickness cartilage loss of glenoid. Humeral head cartilage is normal. IMPRESSION: 1. Near full-thickness tear of supraspinatus tendon. 2. Mild glenoid chondrosis. SLAP tear. 3. Mild intra-articular biceps tendinopathy. 4. Mild acromioclavicular joint osteoarthritis. 5. Moderate subacromial/subdeltoid bursitis. Reviewed, dictated and finalized at location A.
== END 2020-12-19 16:46 | disposition home or self-care (01) ==
LOC: ANHIMG 16:50
PROVIDERS: PCP Family Medicine; Visit Provider Physician Assistant
DX: M19.011 Primary osteoarthritis, right shoulder (principal); M75.51 Bursitis of right shoulder; S43.431A Superior glenoid labrum lesion of right shoulder, initial encounter; X58.XXXA Exposure to other specified factors, initial encounter
CPT/HCPCS: 73221

== ENCOUNTER 2021-01-04 17:16 | Outpatient (CLI) | payer OTHER, SELFPAY ==
--- NOTE | ~2021-01-04 | MM_ITS ---
EXAMINATION: MM screening aissatou BI w travon HISTORY: Screening mammogram TECHNIQUE: Craniocaudal and mediolateral oblique 3-D tomosynthesis images were obtained and synthetic 2-D images were generated. CAD analysis was submitted and interpreted. COMPARISON: 09/04/2019, 08/07/2018, 08/02/2017 bilateral screening mammogram examinations BREAST PARENCHYMAL COMPOSITION: There are scattered areas of fibroglandular density. FINDINGS: Again noted is volume loss of the right lung and stable posterior asymmetric opacity and ratliff rgical clips, architectural distortion and retraction, not significant change since recent studies, c onsistent with chronic postoperative changes from right partial mastectomy for breast cancer. There is no evidence of interval suspicious mass, calcification, or new architectural distortion to s uggest malignancy in either breast. There has been no suspicious interval change. IMPRESSION: 1. Status post right partial mastectomy for breast cancer. No mammographic evidence of malignancy. 2. Recommend routine screening mammography in one year. BI-RADS Category 2: Benign finding(s). Reviewed, dictated and finalized at location A. IMPRESSION: 1. Status post right partial mastectomy for breast cancer. No mammographic evid ence of malignancy. 2. Recommend routine screening mammography in one year. BI-RADS Category 2: Benign finding(s).
== END 2021-01-04 17:17 | disposition home or self-care (01) ==
PROVIDERS: PCP Family Medicine; Visit Provider Family Medicine
DX: Z12.31 Encounter for screening mammogram for malignant neoplasm of breast (principal)
CPT/HCPCS: 77063; 77067

== ENCOUNTER 2021-01-20 09:40 | Outpatient (CLI) | payer OTHER, SELFPAY ==
--- NOTE | ~2021-01-20 | XR_ITS ---
EXAMINATION: XR chest 2V DATE: 01/20/2021 10:05 INDICATION: Personal history of recurrent pneumonia TECHNIQUE: PA and lateral views of the chest are obtained. COMPARISON: 12/06/2020 FINDINGS: The lungs are free of acute opacities. There is no pleural effusion or pneumothorax. The ca rdiomediastinal silhouette is normal. There is moderate thoracic spondylosis. Changes of right partia l mastectomy are noted. IMPRESSION: 1. No acute cardiopulmonary abnormality. Reviewed, dictated and finalized at location A. VERY ARCHITECT
== END 2021-01-20 09:41 | disposition home or self-care (01) ==
LOC: ANHIMG 09:46
PROVIDERS: PCP Family Medicine; Visit Provider Family Medicine
DX: R06.02 Shortness of breath (principal); Z87.01 Personal history of pneumonia (recurrent)
CPT/HCPCS: 71046

== ENCOUNTER 2021-02-12 10:00 | Outpatient (RCR) | payer OTHER, SELFPAY ==
--- NOTE | 2021-01-15 16:34 | PTOPEVAL ---
PHYSICAL THERAPY EVALUATION AND PLAN OF CARE Thank you for referring Rola Zaragoza to [facility].? The patient is scheduled to be seen for therapy?1-2x/week for 5 weeks. Please review, sign, date and return this plan of care MARILU. I agree with and certify that the following plan of care is medically necessary. 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 Cardiovascular History Hx Hypercholesterolemia Yes Hx Hypertension Yes Respiratory History Hx Respiratory Disorders No Significant History Gastrointestinal History Hx Appendectomy Yes: 11/2017 Hx Bowel Surgery Yes: BOWEL RESECTION 11/2017- FROM ISCHEMIC BOWEL AFTER HERNIA SURGERY Hx Gastroesophageal Reflux Disease Yes Hx Hernia Yes: ABDOMINAL HERNIA REPAIR 10/2017 Hx Ulcer Yes Genitourinary History Hx Genitourinary Disorders No Significant History Musculoskeletal History Hx Arthritis Yes: shoulder/left ankle Hematological History Hx Hematological Disorders No Significant History Endocrine History Hx Diabetes Yes: TYPE 2 INSULIN DEP. Hx Hypothyroidism Yes HEENT History Hx Deviated Septum Yes: RIGHT SIDE Integumentary History Hx Excision Skin Lesion Yes: BASAL CELL LEFT LEG Reproductive History Hx Other Reproductive Disorders Yes: R-LUMPECTOMY AGE 52 2012, CHEMO 02/19-06/21, HERCEPTIN, RADIATION 08/21 Psychosocial History Hx Psychiatric Disorders No Significant History Pain History History of Any Previous or Ongoing No Significant History Instance of Pain Anesthesia History Hx Post-Op Nausea/Vomiting Yes: NARCOTICS Other History Hx Cancer Yes: BREAST CANCER R-2012 Hx Chemotherapy Yes: 2013 Hx Radiation Therapy Yes: 2014 Hx Other Surgeries Yes: hernia surgery and 2 foot of intestines and appendix removal Diagnosis right shoulder pain; adhesive capsulitis Onset 7months Subjective Information Rola is here today with a Query Text:As Reported By Patient/ diagnosed frozen shoulder on Family the right. She does have a labrum tear and a supraspinatus tear as indicated by MRI. She had a steroid injection that seems
--- NOTE | 2021-02-12 10:49 | PTOPEVAL ---
PHYSICAL THERAPY DISCHARGE NOTE Thank you for referring Rola Zaragoza to [facility].? Please review, sign, date and return this plan of care MARILU. I agree with and certify that the following plan of care is medically necessary. Referring Physician Date Attending Provider: Wenceslao Mckeon MD Discharge Diagnosis right shoulder pain; adhesive capsulitis Onset 7months Subjective Information Rola reports that she is Query Text:As Reported By Patient/ doing very well. Has no Family current functional limitations . She is able to care for her granddaughter safely. She is able to perform all daily activities as needed without pain. States that the only pain she has is a little bit at night but she is still able to sleep. Pain Assessment Timing of Pain Assessment Timing of Pain Assessment Assessment Self Report Self Report Pain Level 0 Pain Score Pain Score 0: Self Report Interventions Used Interventions Used By Clinicians Exercise,Heat,Manual Therapy Techniques Pain Relief Interventions Used By None Patient Upper Extremity Range of Motion Scapular/ Shoulder Range of Motion Right Shoulder Flexion - Active 155 Shoulder Abduction - Active 150 Shoulder Medial Rotation - Active t10 Query Text:Reach Behind the Back Shoulder Lateral Rotation - Active 70 Scapular/Shoulder Range of Motion right shoulder abduction = Comments 130deg after treatment today Upper Extremity Muscle Strength Testing Scapular/Shoulder Right Shoulder Flexion Strength 5 Normal Shoulder Abduction Strength 5 Normal Shoulder Medial Rotation Strength 5 Normal Shoulder Lateral Rotation Strength 5 Normal General Exercise General Exercises Side Right Exercise Location Shoulder Exercise Type Active,Resistive Exercise Description -wall push up x15 Query Text:Record Sets, Reps, -scaption 3#X15 Resistance, and Position -bucket carry 8# x150ft - no pain -bent over tricep kick back 3# x15 -bent over row 3#x15 -bent over horizontal abduction 3#x15 PT Clinical Summary Rola is a 60 yo female presenting to outpatient physical therapy with
== END 2021-02-13 09:59 | disposition home or self-care (01) ==
LOC: ANHPT 10:00
PROVIDERS: PCP Family Medicine; Visit Provider Orthopaedic Surgery
DX: M75.00 Adhesive capsulitis of unspecified shoulder (principal)
CPT/HCPCS: 97110; 97140; 97161

== ENCOUNTER 2021-04-05 07:51 | Emergency (ER) | payer OTHER, SELFPAY ==
[2021-04-05 08:05] VITALS: BP 148/85; PULSE 78; RESP 18; TEMP 36.4; O2SAT 99
--- NOTE | 2021-04-05 08:17 | ED.NAVMDI ---
HPI - Nausea/Vomiting/Diarrhea General Chief complaint: Nausea/Vomiting/Diarrhea Stated complaint: Nausea vomiting diarrhea Time Seen by Provider: 04/05/21 07:54 Source: patient and family Mode of arrival: ambulatory Limitations: no limitations History of Present Illness HPI Narrative: 60-year-old female Friday night, 4 nights ago, she had dinner that included some [place] fries and soup After that she had nausea and vomiting and diarrhea She talked to her doctor and did clear liquids for about a day and this fluctuated for a couple of days before eventually somewhat improving She has not had any diarrhea or vomiting since last night She came to the ER today because she still feels bad, weak, fatigued, and has a headache History of diabetes Related Data Home Medications Medication Instructions Recorded Confirmed metformin 500 mg tablet,extended 500 mg PO BID 10/29/19 04/03/21 release 24 hr insulin lispro 100 unit/mL 1 sliding scale dose SUBCUT 01/31/20 04/03/21 subcutaneous cartridge USEASDIRECTD black cohosh 540 mg PO DAILY 07/24/20 04/03/21 cholecalciferol (vitamin D3) 50 mcg PO DAILY 07/24/20 04/03/21 [Vitamin D3] fenofibrate 160 mg PO HS 07/24/20 04/03/21 gpnklgan-lzgm-EW-calcium-mins 1 tablet PO DAILY 07/24/20 04/03/21 [Women's One Daily] insulin degludec 100 unit/mL (3 30 unit SUBCUT QPM ml 10/02/20 04/03/21 mL) subcutaneous pen gabapentin 300 mg capsule 300 mg PO TID cap 02/05/21 04/03/21 Allergies Allergy/AdvReac Type Severity Reaction Status Date / Time codeine AdvReac Unknown Nausea Verified 04/03/21 14:58 hydrocodone AdvReac Unknown Nausea and Verified 04/03/21 14:58 Vomiting morphine AdvReac Unknown Nausea and Verified 04/03/21 14:58 Vomiting Opioids - Morphine Analogues AdvReac Unknown Nausea and Verified 04/03/21 14:58 Vomiting oxycodone AdvReac Unknown Nausea and Verified 04/03/21 14:58 Vomiting lisinopril AdvReac Cough Verified 04/03/21 14:58 OPIOIDS AdvReac Intermediate Vomiting Uncoded 04/03/21 14:58 HYDROMORPHONE HCL AdvReac Unknown Nausea and Uncoded 04/03/21 14:58 Vomiting Review of Systems Review of Systems: All systems reviewed & are unremarkable except as noted in HPI and below Constitutional: Constitutional: Reports no additional constitutional complaints, Denies chills, Reports fatigue, Denies fever(s), Denies headache(s) and Reports weakness Eyes: Eyes: Reports no additional eye complaints and Denies change in vision ENT: Denies headache(s) and Denies sore throat Cardiovascular: Cardiovascular: Denies chest pain and Denies dyspnea Respiratory: Respiratory: Denies cough and Denies dyspnea Gastrointestinal: Gastrointestinal: Denies abdominal pain, Reports diarrhea, Reports nausea and Reports vomiting Genitourinary: Genitourinary: Denies urinary frequency and Denies dysuria Musculoskeletal: Musculoskeletal: Reports myalgias, Denies deformity, Denies arthralgias, Denies joint swelling and Denies numbness Integumentary/Breasts: Skin/Breast: Denies rash and Denies wounds Neurologic: Denies headache(s), Denies focal weakness and Denies numbness Psychiatric: Psychiatric: Reports no additional psychiatric complaints Endocrine: Endocrine: Reports no additional endocrine complaints Hematologic/Lymphatic: Hematologic/Lymphatic: Reports no additional hematologic/lymphatic complaints Allergic/Immunologic: Allergic/Immunologic: Reports no additional allergic/immunologic complaints [facility] Past Medical History Medical History Adhesive capsulitis of right shoulder Breast cancer delivery delivered 1988 and 1992 Diabetes mellitus, new onset Hemoglobin A1c less than 7.0% 03/25/20 A1C = 6.6 HTN (hypertension) Hyperlipidemia Hypothyroidism Surgical History Surgical History H/O: hysterectomy (~2010) Total History of hernia rat[place]iff
[2021-04-05 08:31] VITALS: BP 131/69; PULSE 74; RESP 16; O2SAT 97
[2021-04-05 09:05] LABS: Basophils Percent Auto 0.4 % (0.2-1.2); Eosinophils Absolute Auto 0.1 K/mm3 (0-0.3); Eosinophils Percent Auto 1.6 % (0-4.4); Hematocrit 40.1 % (37.0-47.0); Hemoglobin 13.4 g/dL (12.0-15.0); Immature Granulocyte Absolute 0.03 K/mm3 (0.00-0.031); Immature Granulocyte Percent A 0.6 % (0-0.5); Lymphocytes Absolute Auto 0.99 K/mm3 (0.9-3.2); Lymphocytes Percent Auto 19.7 % (18.3-44.2); Mean Corpuscular HGB Conc 33.4 g/dl (32-36); Mean Corpuscular Hemoglobin 29.7 pg (26-34); Mean Corpuscular Volume 88.9 fl (80-100); Mean Platelet Volume 10.4 fl (7.4-10.4); Monocytes Absolute Auto 0.3 K/mm3 (0.1-0.6); Monocytes Percent Auto 6.2 % (2.6-8.5); Neutrophils Absolute Auto 3.6 K/mm3 (1.3-6.7); Neutrophils Percent Auto 71.5 % (45.5-73.1); Platelet Count Result 144 k/mm3 (150-375); Red Blood Count 4.51 M/mm3 (4.2-5.4); Red Cell Distribution Width 13.4 % (11.5-14.5)
[2021-04-05] MEDS: ONDANSETRON INJ 4 MG/2 ML VIAL IV PUSH (09:09)
[2021-04-05] MEDS: LACTATED RINGERS 1,000 ML 999 ML IV CONT (09:10)
[2021-04-05 09:11] LABS: Add Urine Microscopic? YES; Appearance Urine Clear (Clear); Bacteria Urine Trace /hpf; Bilirubin Urine Negative (Negative); Blood Urine Negative (Negative); Color Urine Amber (Yellow); Glucose Urine UA Negative (Negative); Hyaline Casts Urine 15-19 /lpf; Ketones Urine Negative (Negative); Leukocyte Esterase Ur Trace LEU/UL (Negative); Mucus Urine Few /lpf; Nitrate Urine Negative (Negative); Protein Urine 1+ mg/dL (Negative); Squamous Epithelial Cell Urine Few /hpf (Few); Urobilinogen Urine Negative mg/dL (<2.0)
[2021-04-05 09:16] VITALS: BP 133/58; PULSE 71; RESP 21; O2SAT 97
[2021-04-05 09:20] LABS: Alanine Aminotransferase 59 U/L (4-35); Alkaline Phosphatase 62 U/L (38-126); Anion Gap 11 mmol/L (8-16); Aspartate Amino Transferase 43 U/L (14-36); Bilirubin,Total 0.7 mg/dL (0.2-1.3); Blood Urea Nitrogen 13 mg/dL (7-17); Calcium 8.4 mg/dL (8.4-10.2); Carbon Dioxide 28 mmol/L (22-30); Chloride 98 mmol/L (98-107); Estimated CRCL calculation 87 ml/min; Estimated Glomerular Filt Rate > 60; Glucose 159 mg/dL (65-110); Lipase 84 U/L (23-300); Potassium 3.1 mmol/L (3.4-5.0); Sodium 137 mmol/L (137-145)
[2021-04-05 10:37] LABS: SARS-CoV-2 RNA PCR Negative
[2021-04-05] MEDS: POTASSIUM CHLORIDE 20 MEQ PACKET (FOR LIQUID) 60 MEQ PO (11:24)
[2021-04-05] MEDS: ACETAMINOPHEN 500 MG TABLET 1000 MG PO (11:24)
== END 2021-04-05 11:25 | disposition home or self-care (01) ==
PROVIDERS: Emergency Provider Emergency Medicine; PCP Family Medicine
DX: U07.1 COVID-19 (principal); R11.2 Nausea with vomiting, unspecified; R19.7 Diarrhea, unspecified; Z87.891 Personal history of nicotine dependence; E11.9 Type 2 diabetes mellitus without complications; I10 Essential (primary) hypertension; E78.5 Hyperlipidemia, unspecified; E03.9 Hypothyroidism, unspecified; Z79.4 Long term (current) use of insulin
CPT/HCPCS: 36415; 80053; 81001; 83690; 85025; 87086; 87088; 96361; 96374; 99284; A9270; C9803; J2405; J7120; U0003; U0005

== ENCOUNTER 2021-05-08 18:44 | Emergency (ER) | payer OTHER, SELFPAY ==
--- NOTE | ~2021-05-08 | XR_ITS ---
XR chest 2V DATE: 05/08/2021 19:10 INDICATION: Chest pain TECHNIQUE: PA and lateral views COMPARISON: 01/20/2021 2 view chest FINDINGS: Normal heart size. There is patchy bilateral pulmonary infiltrate involving primarily the mid and lower lung zones, left greater than right, suggesting bilateral pneumonia. No pleural effusion or pulmonary vascular congestion or pneumothorax. IMPRESSION: Bilateral patchy infiltrates involving primarily the mid and lower lung zones, left great er than right, suggesting bilateral pneumonia Reviewed, dictated and finalized at location A. TER SHIPYARD IMPRESSION: Bilateral patchy infiltrates involving primarily the mid and lower lung zones, left greater than right, suggesting bilateral pneumonia
[2021-05-08 18:46] VITALS: BP 145/83; PULSE 107; RESP 18; TEMP 37; O2SAT 93
--- NOTE | 2021-05-08 18:51 | ECG_ITS ---
Measurements Intervals [place] Rate: 102 P: 0 LA: 99 QRS: -19 QRSD: 95 T: 1 QT: 333 QTc: 435 Interpretive Statements SINUS TACHYCARDIA WITH SHORT LA INTERVAL WITH OCCASIONAL VENTRICULAR PREMATURE COMPLEXES NONSPECIFIC ST & T-WAVE ABNORMALITY ABNORMAL ECG COMPARED TO ECG 12/06/2020 10:48:27 SINUS TACHYCARDIA NOW PRESENT Electronically Signed On 05-09-2021 9:03:44 [employer] by Constantino Briggs M.D.
[2021-05-08 19:12] LABS: Basophils Percent Auto 0.4 % (0.2-1.2); Eosinophils Absolute Auto 0.1 K/mm3 (0-0.3); Eosinophils Percent Auto 0.9 % (0-4.4); Hematocrit 42.3 % (37.0-47.0); Hemoglobin 13.7 g/dL (12.0-15.0); Immature Granulocyte Absolute 0.05 K/mm3 (0.00-0.031); Immature Granulocyte Percent A 0.5 % (0-0.5); Lymphocytes Absolute Auto 1.57 K/mm3 (0.9-3.2); Lymphocytes Percent Auto 15.9 % (18.3-44.2); Mean Corpuscular HGB Conc 32.4 g/dl (32-36); Mean Corpuscular Hemoglobin 30.2 pg (26-34); Mean Corpuscular Volume 93.4 fl (80-100); Mean Platelet Volume 10.4 fl (7.4-10.4); Monocytes Absolute Auto 0.5 K/mm3 (0.1-0.6); Monocytes Percent Auto 4.7 % (2.6-8.5); Neutrophils Absolute Auto 7.7 K/mm3 (1.3-6.7); Neutrophils Percent Auto 77.6 % (45.5-73.1); Platelet Count Result 200 k/mm3 (150-375); Red Blood Count 4.53 M/mm3 (4.2-5.4); Red Cell Distribution Width 13.9 % (11.5-14.5); White Blood Count 9.9 K/mm3 (4.5-10.0)
[2021-05-08 19:24] LABS: Alanine Aminotransferase 33 U/L (4-35); Albumin Level 4.4 g/dL (3.5-5.1); Alkaline Phosphatase 76 U/L (38-126); Anion Gap 12 mmol/L (8-16); Aspartate Amino Transferase 30 U/L (14-36); Blood Urea Nitrogen 20 mg/dL (7-17); Calcium 9.5 mg/dL (8.4-10.2); Carbon Dioxide 26 mmol/L (22-30); Chloride 98 mmol/L (98-107); Estimated CRCL calculation 104 ml/min; Estimated Glomerular Filt Rate > 60; Glucose 156 mg/dL (65-110); Potassium 3.3 mmol/L (3.4-5.0); Sodium 136 mmol/L (137-145)
[2021-05-08 21:15] VITALS: BP 124/77; PULSE 95; RESP 20; O2SAT 100
[2021-05-08] MEDS: POTASSIUM CHLORIDE 20 MEQ PACKET (FOR LIQUID) 40 MEQ PO (22:28)
--- NOTE | 2021-05-08 22:33 | ED.SOB ---
HPI - SOB/Dyspnea General Chief Complaint: Shortness of Breath/Dyspnea Stated Complaint: cough Time Seen by Provider: 05/08/21 22:10 Source: patient History of Present Illness HPI Narrative: Patient presents with shortness of breath. Reports she had cough throughout the day around 630 she had shortness of breath describes difficulty getting enough air so she came to the ER for evaluation. She did take home Covid test which was negative. She denies fevers. Reports mild chest tingling but denies chest pain denies any nausea vomiting diaphoresis. She denies any known sick contacts she reports she is completed her Covid vaccination series Related Data Home Medications Medication Instructions Recorded Confirmed metformin 500 mg tablet,extended 500 mg PO BID 10/29/19 04/03/21 release 24 hr insulin lispro 100 unit/mL 1 sliding scale dose SUBCUT 01/31/20 04/03/21 subcutaneous cartridge USEASDIRECTD black cohosh 540 mg PO DAILY 07/24/20 04/03/21 cholecalciferol (vitamin D3) 50 mcg PO DAILY 07/24/20 04/03/21 [Vitamin D3] fenofibrate 160 mg PO HS 07/24/20 04/03/21 yyuwmicb-dnow-DH-calcium-mins 1 tablet PO DAILY 07/24/20 04/03/21 [Women's One Daily] insulin degludec 100 unit/mL (3 30 unit SUBCUT QPM ml 10/02/20 04/03/21 mL) subcutaneous pen gabapentin 300 mg capsule 300 mg PO TID cap 02/05/21 04/03/21 Allergies Allergy/AdvReac Type Severity Reaction Status Date / Time codeine AdvReac Unknown Nausea Verified 04/03/21 14:58 hydrocodone AdvReac Unknown Nausea and Verified 04/03/21 14:58 Vomiting hydromorphone AdvReac Unknown Nausea and Verified 04/05/21 10:04 Vomiting morphine AdvReac Unknown Nausea and Verified 04/03/21 14:58 Vomiting Opioids - Morphine Analogues AdvReac Unknown Nausea and Verified 04/03/21 14:58 Vomiting oxycodone AdvReac Unknown Nausea and Verified 04/03/21 14:58 Vomiting lisinopril AdvReac Cough Verified 04/03/21 14:58 Review of Systems Review of Systems: CONSTITUTIONAL: Denies fever, chills, or sweats. EYES: Denies visual changes, redness, or discharge. ENT: Denies rhinorrhea, congestion, sore throat, or otalgia. CARDIOVASCULAR: Denies palpitations, or edema. RESPIRATORY: Reports shortness of breath and cough GASTROINTESTINAL: Denies abdominal pain, nausea, vomiting, or diarrhea. GENITOURINARY: Denies dysuria or hematuria. SKIN: Denies rash or itching. MUSCULOSKELETAL: Denies back pain, joint pain, or myalgia. NEUROLOGIC: Denies headache, numbness, dizziness, or weakness. PSYCHIATRIC: Denies anxiety or depression. All systems reviewed & are unremarkable except as noted in HPI and below PMFSH Past Medical History Medical History Adhesive capsulitis of right shoulder Breast cancer delivery delivered 1988 and 1992 Diabetes mellitus, new onset Hemoglobin A1c less than 7.0% 03/25/20 A1C = 6.6 HTN (hypertension) Hyperlipidemia Hypothyroidism Surgical History Surgical History H/O: hysterectomy (~2010) Total History of hernia surgery (~2016) History of lumpectomy of right breast (~2012) Family History Family History Father Diabetes mellitus Family history of lung cancer Family history of coronary artery disease Grandparent Cerebrovascular accident Family history of lung cancer Other Family history of chronic obstructive pulmonary disease Social History Social History Smoking packs per day: 1 Smoking cigarettes per day: 20.0 Years smoked: 30 Smoking pack-years: 30.00 Smoking status: Never smoker Tobacco type: cigarettes Smoking end date: 03/10/08 Alcohol intake: current Alcohol use details: very rarely Substance use: never Substance use type: does not use Additional occupation/education comments: [employer]
--- NOTE | 2021-05-08 22:46 | PC.NURSE ---
walking oxygen sat's were 95-100% while ambulating around hallway
[2021-05-08 22:48] VITALS: PULSE 74; RESP 16; O2SAT 96
[2021-05-08 23:17] LABS: SARS-CoV-2 RNA PCR Negative
[2021-05-08 23:37] VITALS: O2SAT 100
[2021-05-08 23:40] VITALS: BP 126/76; PULSE 100; RESP 16; O2SAT 100
== END 2021-05-08 23:42 | disposition home or self-care (01) ==
PROVIDERS: Emergency Medicine; Emergency Provider Emergency Medicine; PCP Family Medicine
DX: J18.9 Pneumonia, unspecified organism (principal); Z20.822 Contact with and (suspected) exposure to COVID-19; E11.9 Type 2 diabetes mellitus without complications; I10 Essential (primary) hypertension; E78.5 Hyperlipidemia, unspecified; E03.9 Hypothyroidism, unspecified; Z79.4 Long term (current) use of insulin
CPT/HCPCS: 36415; 71046; 80053; 85025; 93005; 99284; A9270; C9803; U0003; U0005

== ENCOUNTER 2021-06-21 00:08 | Day surgery (SDC) | payer OTHER, SELFPAY ==
[2021-06-18 12:40] VITALS: BMI 33.2
--- NOTE | 2021-06-18 12:51 | PC.NURSE ---
Report to the Outpatient Waiting Room, entrance under the green pavilion located off [facility], at time _0600_ on date _06/21/21_. OR Time: _0730_. - You and your visitor will be asked a series of questions to screen for COVID 19 for your protection. - A mask is required within the hospital. Preoperative COVID Testing Requirements: NONE No COVID Test needed if: (proof is required; if not received patient will have Rapid Test prior to entry) - Patient has received COVID Vaccine at least 14 days prior to procedure date or - Patient has positive COVID test result within last 90 days of surgery date. COVID Test needed if above criteria is not met If not COVID vaccinated a COVID test must be conducted within 72 hours of surgery and patient is asked to isolate self from time of testing until procedure. You will go to the [facility] for your COVID testing. The [facility] site is located at the corner of [address] [facility]. You will only be called if COVID results are positive and your surgeon may reschedule your elective surgery date. Patients may have clear liquids (water, carbonated beverages, clear teas, apple juice) until 3 hours prior to surgery (0430 AM) with a maximum of 20 ounces. - No food from midnight until time of surgery - Infants may have breast milk until 4 hours before surgery, formula 6 hours prior to surgery. - Children will be allowed to drink immediately following surgery. If applicable, please bring a bottle or sippy cup to assist with drinking. Juice, water, soda, and popsicles are readily available. For infants on formula, please bring formula the day of surgery. Pacifiers are allowed. Take the following medications with a SIP of water the morning of surgery: _GABAPENTIN, LEVOTHYROXINE - NO INSULIN DAY OF SURGERY_ Medications to discontinue per ANESTHESIA - _ALL VITAMINS/SUPPLEMENTS OF TODAY 06/18/21_ Please no make-up, nail belarusian, hairspray, perfume, deodorant, or body powder the day of surgery. No jewelry (including any body piercings) or valuables the day of surgery, leave them at home. Please take a shower or bath the night before, or the morning of, surgery with an antibacterial soap. Wear comfortable, loose fitting clothing. Children are encouraged to wear pajamas. - Jewelry must be removed prior to entering the operating room. Rings and piercings that are not removed may be cut off. - The hospital will not accept responsibility for valuables. - Please leave all valuables, including medications, at home the day of surgery. If you are going home after surgery, a licensed regional company truck driver must drive you home. - NO public transportation without another adult. - We recommend that an adult stay with you for 24 hours following discharge. - We also recommend that you do not drive, make important decision, drink alcoholic beverages, or take any drugs that were not prescribed by your health care provider for at least 24 hours after your discharge time. For Pediatric surgeries, we recommend two adults accompany the child home (only one inside the building at this time). One visitor will be allowed to accompany the patient into the hospital. Patients visitor will be instructed to remain with patient at all times or leave the building. We will allow the visitor to come back to the postoperative area when patient is ready. Follow any additional instructions given to you from your surgeon. Telephone instructions given to ___PT and asked if any additional questions and then verbalized understanding. Patient advised to call surgeon office or pre surgery nurse liaison [phone] if any additional questions.
--- NOTE | 2021-06-20 14:08 | WPDANESEPPF ---
Anes - Initial Pre Proc Eval Procedure: Operation Date: 06/21/21 07:30 Proposed Procedures p Left Breast Reduction - Shawn Aguilera MD s Right Breast Mastopexy - Shawn Aguilera MD Date/Time: 06/20/21 14:08 Surgeon: Shawn Aguilera MD Pre Op Diagnosis: Hx of Lumpectomy Patient Data Age: 60 Gender: F Height: 1.61 m Weight: 86.36 kg Allergies Allergy/AdvReac Type Severity Reaction Status Date / Time codeine AdvReac Unknown Nausea Verified 06/18/21 12:29 hydrocodone AdvReac Unknown Nausea and Verified 06/18/21 12:29 Vomiting hydromorphone AdvReac Unknown Nausea and Verified 06/18/21 12:29 Vomiting morphine AdvReac Unknown Nausea and Verified 06/18/21 12:29 Vomiting Opioids - Morphine Analogues AdvReac Unknown Nausea and Verified 06/18/21 12:29 Vomiting oxycodone AdvReac Unknown Nausea and Verified 06/18/21 12:29 Vomiting lisinopril AdvReac Cough Verified 06/18/21 12:29 Home Medications Medication Instructions Recorded Confirmed Type blood sugar diagnostic #100 each 07/22/19 06/04/21 Rx acetaminophen-caffeine [Excedrin 1 tablet PO Q6H PRN #20 tablet 10/29/19 06/18/21 Rx Tension Headache] metformin 500 mg tablet,extended 500 mg PO BID 10/29/19 06/18/21 History release 24 hr insulin lispro 100 unit/mL 1 sliding scale dose SUBCUT 01/31/20 06/18/21 History subcutaneous cartridge USEASDIRECTD black cohosh 540 mg PO DAILY 07/24/20 06/18/21 History cholecalciferol (vitamin D3) 50 mcg PO DAILY 07/24/20 06/18/21 History [Vitamin D3] fenofibrate 160 mg PO HS 07/24/20 06/18/21 History qiqpgjwd-rncu-PX-calcium-mins 1 tablet PO DAILY 07/24/20 06/18/21 History [Women's One Daily] insulin degludec 100 unit/mL (3 30 unit SUBCUT QPM ml 10/02/20 06/18/21 History mL) subcutaneous pen albuterol sulfate 90 mcg/actuation 2 inh INHALATION Q4H PRN #8.5 g 12/11/20 06/18/21 Rx aerosol inhaler gabapentin 300 mg capsule 300 mg PO TID cap 02/05/21 06/18/21 History docusate sodium 100 mg capsule 100 mg PO DAILY #14 cap 06/04/21 06/18/21 Rx enoxaparin 40 mg/0.4 mL 40 mg SUBCUT DAILY #4 ml 06/04/21 06/18/21 Rx subcutaneous syringe hydrocodone 5 mg-acetaminophen 325 1 tablet PO Q6H PRN #30 tablet 06/04/21 06/18/21 Rx mg tablet ondansetron 4 mg disintegrating 4 mg PO Q8H #21 tablet 06/04/21 06/18/21 Rx tablet atorvastatin 20 mg QAM 06/18/21 06/18/21 History esomeprazole magnesium 40 mg BID 06/18/21 06/18/21 History hydrochlorothiazide 12.5 mg PO HS 06/18/21 06/18/21 History levothyroxine 50 mcg PO QAM 06/18/21 06/18/21 History losartan 50 mg PO HS 06/18/21 06/18/21 History semaglutide [Ozempic] 0.5 mg SUBCUT WEEKLY 06/18/21 06/18/21 History turmeric 1 cap QAM 06/18/21 06/18/21 History Patient hx anesthesia problems: post op nausea/vomiting Family hx anesthesia problems: none Results Review: All pre-operative results and documents have been reviewed as part of the pre-operative evaluation. [facility] Past Medical History Medical History Adhesive capsulitis of right shoulder Breast cancer delivery delivered 1988 and 1992 Diabetes mellitus, new onset Hemoglobin A1c less than 7.0% 03/25/20 A1C = 6.6 HTN (hypertension) Hyperlipidemia Hypothyroidism Surgical History Surgical History H/O: hysterectomy (~2010) Total History of hernia surgery (~2016) History of lumpectomy of right breast (~2012) Family History Family History Father Diabetes mellitus Family history of lung cancer Family history of coronary artery disease Grandparent Cerebrovascular accident Family history of lung cancer Other Family history of chronic obstructive pulmonary disease Social History Social History (Updated 06/04/21 @ 10:25 by Angie Chery, [facility]) Smoking packs per day: 1 Smoking cigarettes per day: 20.0 Y
[2021-06-21] VITALS (13 sets, daily range): BP systolic 104–159; BP diastolic 53–89; PULSE 72–105; RESP 12–19; TEMP 36.3; O2SAT 89–99
--- NOTE | 2021-06-21 06:04 | W.PM.PROC2 ---
Procedure Note - Detailed Date of Procedure 06/21/21 Pre-op Diagnosis Acquired breast deformity History right breast cancer History right breast radiation Post-op Diagnosis Same Procedure Performed 1. Right breast mastopexy 2. Left breast reduction mammaplasty including suction lipectomy Surgeon Shawn Aguilera MD Anesthesia General Findings Right breast: Inverted T Superior medial pedicle Left breast: Inverted T Superior medial pedicle Tissue removed - 1058 grams Firm mass noted 1 O'Clock along right chest wall, likely scar from previous lumpectomy. Removed and sent to pathology. Description of Procedure She is here today after previous lumpectomy on the right breast and radiation. She developed a significant asymmetry. She would like proceed with right mastopexy and left breast reduction and related procedures or provide symmetry. Previously and again today the risks, benefits, alternatives were discussed in extensive detail. I wanted her to be very realistic about the risks involved as well as expectations. I was very honsest that she will never have perfect symmetry. Further we had a lengthy discussion of radiation risks involved. We discussed aftercare and what to monitor for. She understands we can never guarantee final breast size and there will always be asymmetry. I was very upfront and honest about the risks of sensation change and even nipple loss (). Made sure answered all of her questions to her satisfaction today and consent was obtained. She was marked in the preoperative holding area with their verification. The patient was taken to the operating room placed supine on the operating table. Anesthesia was provided by anesthesiology. She was prepped and draped in a standard sterile fashion. A surgical time-out was taken. Stab incisions were made and I tumessed with a tumescent solution. I marked out the nipple-areolar complex at 42 mm. I then de-epithelialized the pedicle. The pedicle was well left well more than 2 cm in thickness. On the right breast I de-epithelialized the inferior pole of the breast and created an auto augmentation flap. I elevated just what was necessary the breast in order to maintain vascularity is specially given her history of radiation. I tacked this flap which was based on the intercostal track coach to chest wall with 2-0 PDS. On the left breast I then removed the inferior portion of the breast as well as the central keel to get shape based on preoperative planning. At this point copiously irrigated with saline solution and verified a strict hemostasis. I reapproximated the pillars using a 2-0 PDS. I tailor tacked the breast into place with bolivar. She was placed in a sitting position. I verified the nipple-areolar complex position based on preoperative markings, intraoperative measurements, and observation which were in full agreement. This nipple-areolar complex was marked at 42 mm in size. The left breast had a small depression that was subcised with an 18 guage needle for release. Laterally on the left she had signficant asymmetry that had to be addressed and suction lipectomy with 4mm basket cannula based on S.A.F.E. technique was completed to contour for 500cc of lipoaspirate. I then placed supine and de-epithelialized this. Nipple-areolar complex was inset with 3-0 Monocryl. I closed IMF deep with 1 strattafix. I closed the vertical incision with 3-0 Monocryl in the IMF with 3-0 stratafix. Then everything was closed using a running subcuticular 4-0 Monocryl followed by Steri-Strips. A dressing was placed followed by surgical bra. Patient was awoke and taken to PACU without difficulty. All instrument sponge counts were correct at the end of the case. Estimated Blood Loss 75 Drains No Packing No Pathology Yes (Left breast tissue, right breast mass 1 O'clock position) Complications No immediate complications Condition Stable Disposition PACU
[2021-06-21 06:46] LABS: Urine Cotinine NEGATIVE
[2021-06-21] MEDS: SCOPOLAMINE 1.5 MG PATCH TRANSDERM (07:09)
--- NOTE | 2021-06-21 07:22 | WPDHPUPDATE1 ---
History and Physical Update Update Date/Time: 06/21/21 07:22 History and Physical has been reviewed, including an updated exam of the patient. There are NO changes in the patient's condition. Risks, benefits, and alternatives have been discussed and questions answered. Patient agrees to proceed with procedure.
[2021-06-21] MEDS: TRANEXAMIC ACID 1,000MG/ISO100 1,000 MG/100 ML BAG 200 MG IVPB (07:25)
[2021-06-21] MEDS: LACTATED RINGERS 1,000 ML 30 ML IV CONT ×2 (07:31→10:09)
[2021-06-21 07:32] LABS: Glucose Point of Care 143 mg/dl (65-105)
[2021-06-21] MEDS: ceFAZolin 2 GM/D5W 50 ML 2 GM/50 ML BAG IVPB (07:35)
--- NOTE | 2021-06-21 08:21 | SUR.OPER ---
08:21 - FRESH SPECIMEN SENT. LABELED RIGHT BREAST MASS. PATIENT HAS HISTORY OF BREAST CANCER. SENT WITH LARA SANCHES TO PATHOLOGY. 08:24 - SPECIMEN RECEIVED BY GLORIA.
[2021-06-21] MEDS: LACTATED RINGERS IRRIG 1,000 ML, LIDOCAINE HCL 1% LOCAL INJ 50 ML, EPINEPHrine HCL INJ ... INFILTRATE (09:25)
[2021-06-21 10:18] LABS: Glucose Point of Care 177 mg/dl (65-105)
[2021-06-21] MEDS: fentaNYL CITRATE INJ (*CRX) 100 MCG/2 ML VIAL 25 MCG IV PUSH (10:44)
[2021-06-21] MEDS: ONDANSETRON INJ 4 MG/2 ML VIAL IV PUSH ×2 (11:55→12:31)
--- NOTE | 2021-06-21 12:15 | SUR.PHASEII ---
pt started becoming nauseated and c/o pain this nurse called md malone
[2021-06-21] MEDS: oxyCODONE HCL (*CRX) 2.5 MG TAB IR PO (12:36)
--- NOTE | 2021-06-21 12:46 | SUR.PHASEII ---
this nurse spoke with Md malone about pt. she said her nausea is better. pt was c/o midsternal cp that improved when you push on it. pt HR is increasing from baseline 80s to low 100s. md canales said to just monitor for now.
== END 2021-06-21 14:00 | disposition home or self-care (01) ==
PROVIDERS: PCP Family Medicine; Visit Provider Surgery Plastic and Reconstructive Surgery
PROC: 0HBV0ZZ Excision of Bilateral Breast, Open Approach (ICD-10-PCS; CPT 19318; principal; 2021-06-21 07:30)
PROC: (CPT 19316; 2021-06-21 07:30)
DX: Z42.1 Encounter for breast reconstruction following mastectomy (principal); N60.82 Other benign mammary dysplasias of left breast; N60.31 Fibrosclerosis of right breast; Z85.3 Personal history of malignant neoplasm of breast; E11.9 Type 2 diabetes mellitus without complications; I10 Essential (primary) hypertension; E78.5 Hyperlipidemia, unspecified; E03.9 Hypothyroidism, unspecified; Z87.891 Personal history of nicotine dependence; E66.9 Obesity, unspecified; Z68.33 Body mass index [BMI] 33.0-33.9, adult; Z79.84 Long term (current) use of oral hypoglycemic drugs; Z79.4 Long term (current) use of insulin; Z79.51 Long term (current) use of inhaled steroids; Z79.899 Other long term (current) drug therapy
CPT/HCPCS: 19316; 19318; 80307; 82948; 88305; 88307; A9270; J0171; J0690; J1100; J1170; J2250; J2405; J2704; J3010; J7120

== ENCOUNTER 2021-08-04 08:44 | Outpatient (CLI) | payer OTHER, SELFPAY ==
--- NOTE | ~2021-08-04 | XR_ITS ---
XR chest 2V DATE: 08/04/2021 09:08 INDICATION: Pneumonia TECHNIQUE: PA and lateral views COMPARISON: 05/08/2021 PA and lateral chest FINDINGS: Normal heart size. No hilar or mediastinal enlargement. No pulmonary infiltrate or consolidation, pleural effusion or pulmonary vascular congestion or pneumo thorax. IMPRESSION: No active cardiopulmonary disease Reviewed, dictated and finalized at location A.
== END 2021-08-04 08:45 | disposition home or self-care (01) ==
PROVIDERS: PCP Family Medicine; Visit Provider Physician Assistant
DX: J18.9 Pneumonia, unspecified organism (principal)
CPT/HCPCS: 71046

== ENCOUNTER 2021-10-23 11:29 | Emergency (ER) | payer OTHER, SELFPAY ==
[2021-10-23] VITALS (28 sets, daily range): BP systolic 127–155; BP diastolic 74–90; PULSE 72–94; RESP 13–20; TEMP 36.5; O2SAT 95–100
--- NOTE | ~2021-10-23 | XR_ITS ---
EXAMINATION: XR chest 2V 10/23/2021 12:23 INDICATION: Dizziness PROCEDURE: 2 view chest COMPARISON: Comparison to multiple prior studies sequentially, with oldest reviewed study dated 12/06. FINDINGS: The lungs are clear. The cardiomediastinal silhouette is within normal limits. There are no pleural effusions. There is no pneumothorax suspected. IMPRESSION: 1: NO ACUTE CARDIOPULMONARY DISEASE. Reviewed, dictated and finalized at location B.
--- NOTE | ~2021-10-23 | CT_ITS ---
EXAMINATION: CT brain wo con DATE: 10/23/2021 12:47 INDICATION: Dizziness. Headache. TECHNIQUE: Computed tomography (CT) of the head was performed without intravenous contrast. Sagittal and coronal reconstructions were performed. The mA was adjusted according to patient size. Iterative reconstruction technique was employed. The dose-length product was 605.33 mGy-cm. COMPARISON: head CT dated 10/29/19 and 08/29/2015 FINDINGS: No acute intracranial hemorrhage, acute infarction or abnormal extra axial fluid collection. There is mild scattered white matter hypoattenuation consistent with chronic small vessel ischemic disease. Ventricles are normal and symmetric. 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 No mass/mass effect. Chronic rightward deviation of the nasal septum. The orbits, paranasal sinuses and mastoid a ir cells are normal. IMPRESSION: 1. No acute intracranial process. 2. Nonspecific mild scattered white matter hypoattenuation consistent with chronic small vessel ische adi disease. Reviewed, dictated and finalized at location A. IMPRESSION: 1. No acute intracranial process. 2. 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
--- NOTE | 2021-10-23 11:51 | ECG_ITS ---
Measurements Intervals Graham Rate: 85 P: -18 NV: 104 QRS: -15 QRSD: 100 T: -15 QT: 374 QTc: 447 Interpretive Statements SINUS RHYTHM WITH SHORT NV INTERVAL NONSPECIFIC ST & T-WAVE ABNORMALITY ABNORMAL ECG COMPARED TO ECG 05/08/2021 18:56:40 SINUS RHYTHM NOW PRESENT Electronically Signed On 10-23-2021 12:11:55 CDT by Constantino Briggs M.D.
[2021-10-23 12:18] LABS: Basophils Percent Auto 0.4 % (0.2-1.2); Eosinophils Absolute Auto 0.1 K/mm3 (0-0.3); Eosinophils Percent Auto 1.5 % (0-4.4); Hemoglobin 13.9 g/dL (12.0-15.0); Immature Granulocyte Absolute 0.02 K/mm3 (0.00-0.031); Immature Granulocyte Percent A 0.3 % (0-0.5); Lymphocytes Absolute Auto 1.32 K/mm3 (0.9-3.2); Lymphocytes Percent Auto 18.5 % (18.3-44.2); Mean Corpuscular HGB Conc 32.3 g/dl (32-36); Mean Corpuscular Hemoglobin 29.7 pg (26-34); Mean Corpuscular Volume 91.9 fl (80-100); Mean Platelet Volume 10.7 fl (7.4-10.4); Monocytes Absolute Auto 0.5 K/mm3 (0.1-0.6); Monocytes Percent Auto 6.4 % (2.6-8.5); Neutrophils Absolute Auto 5.2 K/mm3 (1.3-6.7); Neutrophils Percent Auto 72.9 % (45.5-73.1); Platelet Count Result 161 k/mm3 (150-375); Red Blood Count 4.68 M/mm3 (4.2-5.4); Red Cell Distribution Width 14.6 % (11.5-14.5); White Blood Count 7.1 K/mm3 (4.5-10.0)
[2021-10-23 12:26] LABS: Alanine Aminotransferase 50 U/L (6-35); Albumin Level 4.4 g/dL (3.5-5.1); Alkaline Phosphatase 83 U/L (38-126); Anion Gap 12 mmol/L (8-16); Aspartate Amino Transferase 38 U/L (14-36); Bilirubin,Total 0.6 mg/dL (0.2-1.3); Blood Urea Nitrogen 17 mg/dL (7-17); Calcium 9.5 mg/dL (8.4-10.2); Carbon Dioxide 30 mmol/L (22-30); Chloride 95 mmol/L (98-107); Estimated CRCL calculation 104 ml/min; Estimated Glomerular Filt Rate > 60; Glucose 166 mg/dL (65-110); Potassium 3.5 mmol/L (3.4-5.0); Sodium 137 mmol/L (137-145)
--- NOTE | 2021-10-23 12:38 | ED.SOB ---
HPI - SOB/Dyspnea General Chief Complaint: Shortness of Breath/Dyspnea Stated Complaint: sob Time Seen by Provider: 10/23/21 12:20 Source: patient, RN notes reviewed and old records reviewed Mode of arrival: ambulatory Limitations: no limitations History of Present Illness HPI Narrative: This is a 61 year old female with history of hypertension and hypothyroidism who presents for evaluation of low oxygen saturation. Patient states she was evaluated by his PCP yesterday for vertigo. She states her oxygen saturation was 94% on the clinic and she was told to monitor her oxygen saturation at home. She states her home oxygen pulse oximeter would not go above 87% . She states she was at rest when this was tested. She reports intermittent shortness of breath chronically. She denies chest pain, palpitations. She was prescribed meclizine so her vertigo has improved. She is able to walk. She does reports posterior headache that started on Friday with her dizziness. She reports fatigue as well. Related Data Home Medications Medication Instructions Recorded Confirmed insulin lispro 100 unit/mL 1 sliding scale dose subcut 01/31/20 10/22/21 subcutaneous cartridge (Humalog USEASDIRECTD U-100 Insulin) black cohosh 540 mg capsule 540 mg PO DAILY 07/24/20 10/22/21 cholecalciferol (vitamin D3) 50 50 mcg PO DAILY 07/24/20 10/22/21 mcg (2,000 unit) tablet (Vitamin D3) fenofibrate 160 mg tablet 160 mg PO HS 07/24/20 10/22/21 multivit-iron 18 mg-folic acid 400 1 tablet PO DAILY 07/24/20 10/22/21 mcg-calcium 500 mg-minerals tablet (Women's One Daily) insulin degludec 100 unit/mL (3 30 unit subcut QPM 10/02/20 10/22/21 mL) subcutaneous pen (Tresiba FlexTouch U-100 insulin) gabapentin 300 mg capsule 300 mg PO TID 02/05/21 10/22/21 hydrochlorothiazide 12.5 mg tablet 12.5 mg PO HS 06/18/21 10/22/21 levothyroxine 50 mcg tablet 50 mcg PO QAM 06/18/21 10/22/21 semaglutide 0.25 mg or 0.5 mg (2 0.5 mg subcut WEEKLY 06/18/21 10/22/21 mg/1.5 mL) subcutaneous pen injector (Ozempic) turmeric 1 cap QAM 06/18/21 10/22/21 metformin 500 mg tablet 500 mg PO DAILY 10/22/21 10/22/21 Allergies Allergy/AdvReac Type Severity Reaction Status Date / Time codeine AdvReac Mild Nausea Verified 10/23/21 12:12 hydrocodone AdvReac Mild Nausea and Verified 10/23/21 12:12 Vomiting hydromorphone AdvReac Mild Nausea and Verified 10/23/21 12:12 Vomiting lisinopril AdvReac Mild Cough Verified 10/23/21 12:12 morphine AdvReac Mild Nausea and Verified 10/23/21 12:12 Vomiting Opioids - Morphine Analogues AdvReac Mild Nausea and Verified 10/23/21 12:12 Vomiting oxycodone AdvReac Mild Nausea and Verified 10/23/21 12:12 Vomiting Review of Systems Review of Systems: All systems reviewed & are unremarkable except as noted in HPI and below Constitutional: Constitutional: Denies chills, Denies fatigue and Denies fever(s) ENT: Denies nasal congestion and Denies sore throat Cardiovascular: Cardiovascular: Denies chest pain, Denies rapid heart rate and Denies radiating jaw, neck or arm pain Gastrointestinal: Gastrointestinal: Denies abdominal pain, Denies bloating, Denies nausea and Denies vomiting Neurologic: Reports vertigo, Denies syncope, Reports headache(s), Denies focal weakness and Denies numbness PMFSH Past Medical History Medical History Adhesive capsulitis of right shoulder Breast cancer delivery delivered 1988 and 1992 Diabetes mellitus, new onset Hemoglobin A1c less than 7.0% 03/25/20 A1C = 6.6 HTN (hypertension) Hyperlipidemia Hypothyroidism Surgical History Surgical History H/O: hysterectomy (~2010) Total History of hernia surgery (~2016) History of lumpectomy of right breast (~2012) Family History Family History
--- NOTE | 2021-10-23 12:41 | PC.NURSE ---
Pt to CT scan
[2021-10-23] MEDS: SODIUM CHLORIDE 0.9% IV 1,000 ML 999 ML IV CONT (12:50)
[2021-10-23 13:35] LABS: SARS-CoV-2 RNA PCR Negative
[2021-10-23 15:16] LABS: Appearance Urine Clear (Clear); Bilirubin Urine Negative (Negative); Blood Urine Negative (Negative); Color Urine Yellow (Yellow); Glucose Urine UA Trace mg/dL (Negative); Ketones Urine Negative (Negative); Leukocyte Esterase Ur 1+ LEU/UL (Negative); Nitrate Urine Negative (Negative); Protein Urine Negative (Negative); Urobilinogen Urine 0.2 mg/dL (<2.0); pH Urine 6.5 (5.0-9.0)
[2021-10-23 15:21] LABS: Add Urine Microscopic? YES; Bacteria Urine Trace /hpf; Mucus Urine Rare /lpf; Squamous Epithelial Cell Urine Occasional /hpf (Few)
== END 2021-10-23 16:13 | disposition home or self-care (01) ==
PROVIDERS: Emergency Medicine; Emergency Provider General Practice; PCP Family Medicine
DX: N39.0 Urinary tract infection, site not specified (principal); R42 Dizziness and giddiness; Z20.822 Contact with and (suspected) exposure to COVID-19; E11.9 Type 2 diabetes mellitus without complications; I10 Essential (primary) hypertension; E78.5 Hyperlipidemia, unspecified; E03.9 Hypothyroidism, unspecified; Z85.3 Personal history of malignant neoplasm of breast; Z79.84 Long term (current) use of oral hypoglycemic drugs; Z79.4 Long term (current) use of insulin; Z90.710 Acquired absence of both cervix and uterus; Z87.891 Personal history of nicotine dependence; R94.31 Abnormal electrocardiogram [ECG] [EKG]
CPT/HCPCS: 36415; 70450; 71046; 80053; 81001; 85025; 93005; 96360; 99284; C9803; J7030; U0003; U0005

== ENCOUNTER 2021-12-24 07:00 | Outpatient (NON) | payer OTHER, SELFPAY | END 2021-12-24 07:01 | disposition home or self-care (01) | LOC: ANHLAB 12-25 15:59 | PROVIDERS: PCP Family Medicine; Visit Provider Nurse Practitioner | DX: B07.8 Other viral warts (principal) | CPT/HCPCS: 88305 ==

== ENCOUNTER 2022-01-29 10:00 | Outpatient (CLI) | payer OTHER, SELFPAY ==
--- NOTE | ~2022-01-29 | XR_ITS ---
XR chest 2V 01/29/2022 10:16 Indication: Painful cough. Procedure: 2 view chest Comparison: 10/23/2021 Findings: Heart size is normal. There are bilateral interstitial infiltrates which may represent ortega a or pneumonia. No pleural effusion or pneumothorax. No acute osseous abnormality. Impression: 1: Bilateral interstitial infiltrates which may represent edema or pneumonia. Reviewed, dictated and finalized at location B. 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
== END 2022-01-29 10:01 | disposition home or self-care (01) ==
PROVIDERS: PCP Family Medicine; Visit Provider Family Medicine
DX: R05.9 Cough, unspecified (principal); R91.8 Other nonspecific abnormal finding of lung field
CPT/HCPCS: 71046

== ENCOUNTER 2022-02-16 11:55 | Outpatient (CLI) | payer OTHER, SELFPAY ==
--- NOTE | ~2022-02-16 | MM_ITS ---
EXAMINATION: MM screening aissatou BI w travon HISTORY: Screening TECHNIQUE: Craniocaudal and mediolateral oblique 3-D tomosynthesis images were obtained and synthetic 2-D images were generated. CAD analysis was submitted and interpreted. COMPARISON: No prior mammogram is available for comparison at this institution. BREAST PARENCHYMAL COMPOSITION: There are scattered areas of fibroglandular density. FINDINGS: There is stable architectural distortion near the previous lumpectomy site of the left dunia st with evidence for reconstruction surgery. There are stable benign-appearing calcifications near th e surgical site. There is no evidence of suspicious mass, calcification, or architectural distortion to suggest malignancy in either breast. There has been no suspicious interval change. IMPRESSION: 1. No mammographic evidence of malignancy. 2. Recommend routine screening mammography in one year. BI-RADS Category 2: Benign finding(s). Reviewed, dictated and finalized at location B. BER
== END 2022-02-16 11:56 | disposition home or self-care (01) ==
LOC: ANHIMG 11:57
PROVIDERS: PCP Family Medicine; Visit Provider Family Medicine
DX: Z12.31 Encounter for screening mammogram for malignant neoplasm of breast (principal)
CPT/HCPCS: 77063; 77067

== ENCOUNTER 2022-05-21 09:41 | Outpatient (CLI) | payer OTHER, SELFPAY ==
--- NOTE | ~2022-05-21 | XR_ITS ---
Clinical Indication: Cough PA and lateral views of the chest: Comparison: 01/29/2022 Findings: Probable mild patchy groundglass opacity in the right lung. Questionable minimal involvemen t left lung base.. Cardiomediastinal silhouette is within normal limits. Bones and soft tissues are unremarkable. Impression: Patchy groundglass opacity predominantly in the right lung. Findings are suspicious for pneumonia/aty pical infection. Reviewed, dictated and finalized at location M. Impression: Patchy groundglass opacity predominantly in the right lung. Findings are suspic ious for pneumonia/atypical infection.
== END 2022-05-21 09:42 | disposition home or self-care (01) ==
PROVIDERS: PCP Family Medicine; Visit Provider Family Medicine
DX: R05.9 Cough, unspecified (principal); R91.8 Other nonspecific abnormal finding of lung field
CPT/HCPCS: 71046

== ENCOUNTER 2022-09-20 15:09 | Outpatient (CLI) | payer OTHER, SELFPAY ==
--- NOTE | ~2022-09-20 | XR_ITS ---
EXAMINATION: XR hand LT min 3V DATE: 09/20/2022 15:25 INDICATION: Hand pain. TECHNIQUE: 3 views of left hand were obtained. COMPARISON: None. FINDINGS: Bone alignment is normal. No fracture. There is mild osteoarthritis of second and third met acarpophalangeal joints and second proximal interphalangeal joint. IMPRESSION: 1. Mild polyarticular osteoarthritis. Reviewed, dictated and finalized at location E.
--- NOTE | ~2022-09-20 | XR_ITS ---
EXAMINATION: XR hand RT min 3V DATE: 09/20/2022 15:25 INDICATION: Right hand pain. TECHNIQUE: 3 views of right hand were obtained. COMPARISON: None. FINDINGS: Bone alignment is normal. No fracture. There is mild osteoarthritis of third metacarpophala ngeal joint and fourth and fifth distal interphalangeal joints. IMPRESSION: 1. Mild polyarticular osteoarthritis. Reviewed, dictated and finalized at location E.
== END 2022-09-20 15:10 | disposition home or self-care (01) ==
PROVIDERS: PCP Family Medicine; Visit Provider Family Medicine
DX: M19.041 Primary osteoarthritis, right hand (principal); M19.042 Primary osteoarthritis, left hand
CPT/HCPCS: 73130

== ENCOUNTER 2023-05-05 09:18 | Outpatient (CLI) | payer OTHER, SELFPAY ==
--- NOTE | ~2023-05-05 | MM_ITS ---
EXAMINATION: MM screening aissatou BI w travon HISTORY: Screening TECHNIQUE: Craniocaudal and mediolateral oblique 3-D tomosynthesis images were obtained and synthetic 2-D images were generated. CAD analysis was submitted and interpreted. COMPARISON: Comparison to multiple prior studies sequentially, with oldest reviewed study dated 03/2016. BREAST PARENCHYMAL COMPOSITION: There are scattered areas of fibroglandular density. There is stable architectural distortion in the upper inner quadrant of the right breast posteriorly from previous bryan mpectomy. FINDINGS: There is no evidence of suspicious mass, calcification, or architectural distortion to sugg est malignancy in either breast. There has been no suspicious interval change. IMPRESSION: 1. No mammographic evidence of malignancy. 2. Recommend routine screening mammography in one year. BI-RADS Category 1: Negative Reviewed, dictated and finalized at location A. ELING BUYER
== END 2023-05-05 09:19 | disposition home or self-care (01) ==
LOC: ANHIMG 09:20
PROVIDERS: PCP Family Medicine; Visit Provider Family Medicine
DX: Z12.31 Encounter for screening mammogram for malignant neoplasm of breast (principal)
CPT/HCPCS: 77063; 77067

== ENCOUNTER 2023-05-08 16:10 | Outpatient (CLI) | payer OTHER, SELFPAY ==
--- NOTE | ~2023-05-08 | XR_ITS ---
Clinical Indication: Cough PA and lateral views of the chest: Comparison: 05/21/2022 Findings: The lungs are clear, without evidence of focal consolidation or pleural effusion. Cardiome diastinal silhouette is within normal limits. Bones and soft tissues are unremarkable. Impression: Normal chest. Reviewed, dictated and finalized at [facility]. E PROJECT MANAGER Impression: Normal chest.
== END 2023-05-08 16:11 | disposition home or self-care (01) ==
LOC: ANHIMG 16:12
PROVIDERS: PCP Family Medicine; Visit Provider Nurse Practitioner
DX: R05.9 Cough, unspecified (principal)
CPT/HCPCS: 71046

== ENCOUNTER 2023-08-23 13:23 | Emergency (ER) | payer OTHER, SELFPAY ==
--- NOTE | ~2023-08-23 | CT_ITS ---
CT brain wo con Ordering provider: Tommie Zhou MD History: 63 years Female with . headache . Comparison: October 23, 2021 Technique: CT of the head without contrast. Radiation reduction technique utilized. DLP is 605.33 mGy FINDINGS: BRAIN PARENCHYMA AND CSF SPACES: No midline shift, mass effect or hemorrhage. The brain parenchyma a nd CSF spaces are otherwise normal. VISUALIZED PARANASAL SINUSES: Well aerated. MASTOIDS: Well aerated. BONES: The bones appear intact. SOFT TISSUES: Visualized nasopharynx is normal. Superficial soft tissues are normal. IMPRESSION: No acute intracranial findings. Reviewed, dictated and finalized at location A.
[2023-08-23 13:38] VITALS: BP 186/83; PULSE 78; RESP 16; TEMP 36.4; O2SAT 97
[2023-08-23 15:01] VITALS: BP 167/85; PULSE 81; RESP 20; O2SAT 93
--- NOTE | 2023-08-23 15:11 | ED.GENADULT ---
HPI - General Adult General Chief complaint: Headache Stated complaint: headache x 3 days Time Seen by Provider: 08/23/23 14:13 History of Present Illness HPI narrative: 63-year-old female present to the emergency department for evaluation acute onset of headache. Patient reports yesterday while at work and resting she had onset of a posterior headache that does radiate to her front. Patient does report some associated nausea and does report associated light sensitivity. Patient does have history of migraines when she was younger but denies any recent history of headaches. Related Data Home Medications Medication Instructions Recorded Confirmed insulin lispro 100 unit/mL 1 sliding scale dose subcut 01/31/20 06/23/23 subcutaneous cartridge (Humalog USEASDIRECTD U-100 Insulin) gabapentin 300 mg capsule 300 mg PO TID 02/05/21 06/23/23 insulin degludec 100 unit/mL (3 56 unit subcut QPM 11/14/21 06/23/23 mL) subcutaneous pen (Tresiba FlexTouch U-100 insulin) Allergies Allergy/AdvReac Type Severity Reaction Status Date / Time codeine AdvReac Mild Nausea Verified 06/23/23 09:31 hydrocodone AdvReac Mild Nausea and Verified 06/23/23 09:31 Vomiting hydromorphone AdvReac Mild Nausea and Verified 06/23/23 09:31 Vomiting lisinopril AdvReac Mild Cough Verified 06/23/23 09:31 morphine AdvReac Mild Nausea and Verified 06/23/23 09:31 Vomiting Opioids - Morphine Analogues AdvReac Mild Nausea and Verified 06/23/23 09:31 Vomiting oxycodone AdvReac Mild Nausea and Verified 06/23/23 09:31 Vomiting Review of Systems Review of Systems: All systems reviewed & are unremarkable except as noted in HPI and below PMFSH Past Medical History Medical History Adhesive capsulitis of right shoulder Breast cancer delivery delivered 1988 and 1992 Diabetes mellitus, new onset Hemoglobin A1c less than 7.0% 03/25/20 A1C = 6.6 HTN (hypertension) Hyperlipidemia Hypothyroidism Wound of foot Surgical History Surgical History H/O: hysterectomy (~2010) Total History of hernia surgery (~2016) History of lumpectomy of right breast (~2012) Status post breast reduction (~06/2021) Family History Family History Father Diabetes mellitus Family history of lung cancer Family history of coronary artery disease Grandparent Cerebrovascular accident Family history of lung cancer Other Family history of chronic obstructive pulmonary disease Social History Social History Smoking packs per day: 1 Smoking cigarettes per day: 20.0 Years smoked: 30 Smoking pack-years: 30.00 Smoking status: Former smoker Tobacco type: cigarettes Second hand tobacco smoke exposure: No Smoking end date: 03/10/08 Alcohol intake: current Alcohol use details: STATES VERY RARE MAYBE 1-2 DRINKS/2-3 MONTHS Substance use: never Substance use type: does not use Lack of Transportation: No Lack of Food: Never True Current Housing: I Have Housing Concerned About Future Housing: No Difficulty Paying Gas/Electric Bills: No Difficulty Paying for Meds: No Currently Unemployed: No Education: High School Diploma/GED Difficulty w/ Childcare or Family Care: No Living arrangements: with family Additional living arrangements comments: LIVES WTIH SIGNIFICANT OTHER Occupation/Education: occupation Additional occupation/education comments: [employer] Gender identity (if verbalized by the patient): Female Sexual Orientation (if Verbalized by the Patient): Straight or Heterosexual Spiritual care concerns: No Exam Narrative: APPEARANCE: Well appearing, no pain, no distress, well-nourished. HEAD: normocephalic, atraumatic. EYES: PERRLA/EOMI, conjunctivae clear. NOSE:
[2023-08-23] MEDS: SODIUM CHLORIDE 0.9% IV 500 ML 999 ML IV CONT (15:26)
[2023-08-23] MEDS: diphenhydrAMINE HCl INJ 50 MG/ML VIAL 25 MG IV PUSH (15:27)
[2023-08-23] MEDS: PROCHLORPERAZINE EDISYLATE 10 MG/2 ML VIAL IV PUSH (15:27)
[2023-08-23 15:39] LABS: Basophils Percent Auto 0.3 % (0.2-1.2); Eosinophils Absolute Auto 0.1 K/mm3 (0-0.3); Eosinophils Percent Auto 1.3 % (0-4.4); Hematocrit 42.3 % (37.0-47.0); Hemoglobin 13.7 g/dL (12.0-15.0); Immature Granulocyte Absolute 0.03 K/mm3 (0.00-0.031); Immature Granulocyte Percent A 0.4 % (0-0.5); Lymphocytes Absolute Auto 1.14 K/mm3 (0.9-3.2); Lymphocytes Percent Auto 16.4 % (18.3-44.2); Mean Corpuscular HGB Conc 32.4 g/dl (32-36); Mean Corpuscular Hemoglobin 29.3 pg (26-34); Mean Corpuscular Volume 90.4 fl (80-100); Monocytes Absolute Auto 0.3 K/mm3 (0.1-0.6); Monocytes Percent Auto 4.7 % (2.6-8.5); Neutrophils Absolute Auto 5.3 K/mm3 (1.3-6.7); Neutrophils Percent Auto 76.9 % (45.5-73.1); Platelet Count Result 146 k/mm3 (150-375); Red Blood Count 4.68 M/mm3 (4.2-5.4); Red Cell Distribution Width 13.5 % (11.5-14.5)
[2023-08-23 15:48] LABS: Alanine Aminotransferase 32 U/L (6-35); Albumin Level 4.3 g/dL (3.5-5.1); Alkaline Phosphatase 66 U/L (38-126); Anion Gap 10 mmol/L (4-12); Aspartate Amino Transferase 28 U/L (14-36); Bilirubin,Total 0.7 mg/dL (0.2-1.3); Blood Urea Nitrogen 13 mg/dL (7-17); Calcium 9.7 mg/dL (8.4-10.2); Carbon Dioxide 27 mmol/L (22-30); Chloride 102 mmol/L (98-107); Estimated CRCL calculation 101 ml/min; Estimated Glomerular Filt Rate > 60; Glucose 125 mg/dL (65-110); Potassium 3.3 mmol/L (3.4-5.0); Sodium 139 mmol/L (137-145)
[2023-08-23 15:50] LABS: Prothrombin Time 13.7 Seconds (11.1-14.7)
[2023-08-23 15:51] LABS: Partial Thromboplastin Time 24.7 Seconds (22.3-36.8)
[2023-08-23 16:08] VITALS: BP 162/71; PULSE 87; RESP 14; O2SAT 94
[2023-08-23 16:09] VITALS: PULSE 82; RESP 17; O2SAT 90
[2023-08-23] MEDS: KETOROLAC 15 MG/ML VIAL (*BKC) IV PUSH (16:09)
[2023-08-23 16:15] VITALS: PULSE 87; RESP 17; O2SAT 94
== END 2023-08-23 17:10 | disposition home or self-care (01) ==
PROVIDERS: Emergency Provider Emergency Medicine; PCP Family Medicine
DX: R51.9 Headache, unspecified (principal); I10 Essential (primary) hypertension; E11.9 Type 2 diabetes mellitus without complications; E78.5 Hyperlipidemia, unspecified; E03.9 Hypothyroidism, unspecified; Z85.3 Personal history of malignant neoplasm of breast; Z87.891 Personal history of nicotine dependence; Z90.710 Acquired absence of both cervix and uterus; Z79.4 Long term (current) use of insulin; Z79.84 Long term (current) use of oral hypoglycemic drugs; Z79.899 Other long term (current) drug therapy
CPT/HCPCS: 36415; 70450; 80053; 85025; 85055; 85610; 85730; 96361; 96374; 96375; 99284; J0780; J1200; J1885; J7040

== ENCOUNTER 2023-10-01 07:00 | Outpatient (NON) | payer OTHER, SELFPAY | END 2023-10-01 07:01 | disposition home or self-care (01) | PROVIDERS: PCP Family Medicine; Visit Provider Internal Medicine Gastroenterology | DX: K21.9 Gastro-esophageal reflux disease without esophagitis (principal) | CPT/HCPCS: 88305 ==

== ENCOUNTER 2023-10-01 07:18 | Day surgery (SDC) | payer OTHER, SELFPAY ==
[2023-09-01 13:23] VITALS: BMI 32.4
[2023-09-19 10:00] VITALS: BMI 31.8
[2023-10-01 07:40] VITALS: BP 148/79; PULSE 81; RESP 16; TEMP 36.4; O2SAT 96
[2023-10-01] MEDS: LACTATED RINGERS 1,000 ML 150 ML IV CONT (07:44)
--- NOTE | 2023-10-01 07:51 | WPDANESEPPF ---
Anes - Initial Pre Proc Eval Procedure: Operation Date: 10/01/23 09:00 Proposed Procedures p Esophagogastroduodenoscopy - Bay Walsh MD Date/Time: 10/01/23 07:51 Surgeon: Bay Walsh MD Pre Op Diagnosis: Barretts Esophagus Patient Data Age: 63 Gender: F Height: 1.63 m Weight: 85.5 kg Last Vital Signs Temp 36.4 C L 10/01/23 07:40 Pulse 81 10/01/23 07:40 Resp 16 10/01/23 07:40 BP 148/79 H 10/01/23 07:40 Pulse Ox 96 10/01/23 07:40 O2 Del Method Room Air 10/01/23 07:40 Allergies Allergy/AdvReac Type Severity Reaction Status Date / Time codeine AdvReac Mild Nausea Verified 10/01/23 07:39 hydrocodone AdvReac Mild Nausea and Verified 10/01/23 07:39 Vomiting hydromorphone AdvReac Mild Nausea and Verified 10/01/23 07:39 Vomiting lisinopril AdvReac Mild Cough Verified 10/01/23 07:39 morphine AdvReac Mild Nausea and Verified 10/01/23 07:39 Vomiting Opioids - Morphine Analogues AdvReac Mild Nausea and Verified 10/01/23 07:39 Vomiting oxycodone AdvReac Mild Nausea and Verified 10/01/23 07:39 Vomiting Home Medications Medication Instructions Recorded Confirmed Type blood sugar diagnostic #100 ea 07/22/19 05/06/23 Rx insulin lispro 100 unit/mL 1 sliding scale dose subcut 01/31/20 10/01/23 History subcutaneous cartridge (Humalog USEASDIRECTD U-100 Insulin) gabapentin 300 mg capsule 300 mg PO DAILY 02/05/21 10/01/23 History insulin degludec 100 unit/mL (3 56 unit subcut QPM 11/14/21 10/01/23 History mL) subcutaneous pen (Tresiba FlexTouch U-100 insulin) duloxetine 60 mg capsule,delayed 60 mg PO DAILY #90 caps 12/06/22 10/01/23 Rx release albuterol sulfate 90 mcg/actuation 2 puff inhalation Q4H PRN 02/18/23 10/01/23 Rx aerosol inhaler shortness of breath or wheezing #8.5 grams hydrochlorothiazide 12.5 mg tablet 12.5 mg PO DAILY #90 tabs 03/07/23 10/01/23 Rx atorvastatin 20 mg tablet 20 mg PO DAILY #90 tabs 05/01/23 10/01/23 Rx cholecalciferol (vitamin D3) 25 See Rx Instructions .Route 05/13/23 10/01/23 Rx mcg (1,000 unit) tablet .COMPLEX #90 tabs meloxicam 15 mg tablet 15 mg PO DAILY #90 tabs 06/20/23 10/01/23 Rx ergocalciferol (vitamin D2) 1,250 1,250 mcg PO WEEKLY #12 caps 06/23/23 10/01/23 Rx mcg (50,000 unit) capsule (Vitamin D2) insulin syringe-needle U-100 1 mL #10 ea 07/02/23 Rx 31 gauge x 5/16 (BD Insulin Syringe Ultra-Fine) fenofibrate 160 mg tablet 160 mg PO HS #90 tabs 07/24/23 10/01/23 Rx levothyroxine 75 mcg tablet 75 mcg PO .QOD #45 tabs 08/06/23 10/01/23 Rx (Synthroid) levothyroxine 50 mcg tablet 50 mcg PO .every other day #45 tabs 08/07/23 10/01/23 Rx blood-glucose transmitter (Dexcom #1 ea 08/21/23 Rx G6 Transmitter device) losartan 50 mg tablet 50 mg PO DAILY #90 tabs 09/05/23 10/01/23 Rx esomeprazole magnesium 40 mg 40 mg PO BID 09/19/23 10/01/23 History capsule,delayed release metformin 500 mg tablet,extended 500 mg PO BID 09/19/23 10/01/23 History release 24 hr metoclopramide HCl 10 mg tablet 10 mg PO DAILY PRN Nausea 09/19/23 10/01/23 History vxlapmlvzeuu-Pw-vggq-minerals 18 1 tablet PO DAILY 09/19/23 10/01/23 History mg-0.4 mg tablet tirzepatide 2.5 mg/0.5 mL 2.5 mg (0.5 mL) subcut WEEKLY 4 09/25/23 10/01/23 Rx subcutaneous pen injector weeks #2 mL (Snedy) Patient hx anesthesia problems: post op nausea/vomiting Family hx anesthesia problems: none Results Review: All pre-operative results and documents have been reviewed as part of the pre-operative evaluation. [facility] Past Medical History Medical History Adhesive capsulitis of right shoulder Breast cancer delivery delivered 1988 and 1992 Diabetes mellitus, new onset Hemoglobin A1c less than 7.0% 03/25/20 A1C = 6.6 HTN (hypertension) Hyperlipidemia Hypothyroidism Wound of foot Surgical History Surgical History (Reviewed 10/01/23 @ 07:51
[2023-10-01 07:53] LABS: Glucose Point of Care 128 mg/dl (65-105)
--- NOTE | 2023-10-01 08:31 | PM.HPGS ---
History of Present Illness History of Present Illness Consent: Risks, benefits, and alternatives have been discussed and questions answered. Patient agrees to proceed with procedure. Chief complaint: Barretts Esophagus Narrative: Rola Zaragoza is a 63 year old female presents for surveillance EGD. Patient known to have Hedrick's esophagus. She has underlying GE reflux disease. Currently she takes Nexium 40mg p.o. b.i.d. but requires supplementing this intermittently with supplemental Reglan. She does this briefly and only as needed. Family history is noncontributory. Patient denies any dysphagia or bleeding. she presents today for surveillance EGD. Review of Systems Review of Systems: All systems reviewed & are unremarkable except as noted in HPI and below PMFSH Past Medical History Medical History Adhesive capsulitis of right shoulder Breast cancer delivery delivered 1988 and 1992 Diabetes mellitus, new onset Hemoglobin A1c less than 7.0% 03/25/20 A1C = 6.6 HTN (hypertension) Hyperlipidemia Hypothyroidism Wound of foot Surgical History Surgical History H/O: hysterectomy (~2010) Total History of hernia surgery (~2016) History of lumpectomy of right breast (~2012) Status post breast reduction (~06/2021) Family History Family History Father Diabetes mellitus Family history of lung cancer Family history of coronary artery disease Grandparent Cerebrovascular accident Family history of lung cancer Other Family history of chronic obstructive pulmonary disease Social History Social History Smoking packs per day: 1 Smoking cigarettes per day: 20.0 Years smoked: 30 Smoking pack-years: 30.00 Smoking status: Former smoker Tobacco type: cigarettes Second hand tobacco smoke exposure: No Smoking end date: 03/10/08 Alcohol intake: current Alcohol use details: rarely Substance use: never Substance use type: does not use Lack of Transportation: No Lack of Food: Never True Current Housing: I Have Housing Concerned About Future Housing: No Difficulty Paying Gas/Electric Bills: No Difficulty Paying for Meds: No Currently Unemployed: No Education: High School Diploma/GED Difficulty w/ Childcare or Family Care: No Living arrangements: with family Additional living arrangements comments: LIVES WT[facility] SIGNIFICANT OTHER Occupation/Education: occupation Additional occupation/education comments: [employer] Gender identity (if verbalized by the patient): Female Sexual Orientation (if Verbalized by the Patient): Straight or Heterosexual Spiritual care concerns: No Meds Home Medications and Allergies Home Medications Medication Instructions Recorded Confirmed Type blood sugar diagnostic #100 ea 07/22/19 05/06/23 Rx insulin lispro 100 unit/mL 1 sliding scale dose subcut 01/31/20 10/01/23 History subcutaneous cartridge (Humalog USEASDIRECTD U-100 Insulin) gabapentin 300 mg capsule 300 mg PO DAILY 02/05/21 10/01/23 History insulin degludec 100 unit/mL (3 56 unit subcut QPM 11/14/21 10/01/23 History mL) subcutaneous pen (Tresiba FlexTouch U-100 insulin) duloxetine 60 mg capsule,delayed 60 mg PO DAILY #90 caps 12/06/22 10/01/23 Rx release albuterol sulfate 90 mcg/actuation 2 puff inhalation Q4H PRN 02/18/23 10/01/23 Rx aerosol inhaler shortness of breath or wheezing #8.5 grams hydrochlorothiazide 12.5 mg tablet 12.5 mg PO DAILY #90 tabs 03/07/23 10/01/23 Rx atorvastatin 20 mg tablet 20 mg PO DAILY #90 tabs 05/01/23 10/01/23 Rx cholecalciferol (vitamin D3) 25 See Rx Instructions .Route 05/13/23 10/01/23 Rx mcg (1,000 unit) tablet .COMPLEX #90 tabs meloxicam 15 mg tablet 15 mg PO DAILY #90 tabs
[2023-10-01 09:18] VITALS: BP 116/69; PULSE 88; RESP 15
--- NOTE | 2023-10-01 09:23 | WPDANESPN ---
Anes - Prog Note Post-Op Date/Time: 10/01/23 09:23 Cardiovascular status: normal Respiratory status: normal Airway patency: baseline Mental status: baseline Post-Op hydration status: normal Vital Signs: Last Vital Signs Temp 36.4 C L 10/01/23 07:40 Pulse 81 10/01/23 07:40 Resp 16 10/01/23 07:40 BP 148/79 H 10/01/23 07:40 Pulse Ox 96 10/01/23 07:40 O2 Del Method Room Air 10/01/23 07:40 Pain Score (VAS): 0 I/O: Intake & Output 09/30/23 10/01/23 10/01/23 23:59 07:59 15:59 Intake Total 200 Balance 200 10/01/23 07:47 POC Capillary Glucose 128 H Post-procedural complaints: none Patient Feedback: Patient satisfied with anesthetic care.
[2023-10-01 09:28] VITALS: BP 126/80; PULSE 85; RESP 14; O2SAT 96
[2023-10-01 09:55] VITALS: BP 133/76; PULSE 76; RESP 14; O2SAT 96
== END 2023-10-01 10:07 | disposition home or self-care (01) ==
PROVIDERS: PCP Family Medicine; Visit Provider Internal Medicine Gastroenterology
PROC: 0DJ08ZZ Inspection of Upper Intestinal Tract, Via Natural or Artificial Opening Endoscopic (ICD-10-PCS; CPT 43235; principal; 2023-10-01 09:00)
DX: K22.70 Barrett's esophagus without dysplasia (principal)
CPT/HCPCS: 43239

== ENCOUNTER 2023-12-01 09:17 | Outpatient (CLI) | payer OTHER, SELFPAY ==
--- NOTE | ~2023-12-01 | US_ITS ---
MRI lumbosacral area ULTRASOUND Ordering provider: Aishwarya Crocker CRM ARCHITECT-C History: . R19.00 - Intra-abdominal and pelvic swelling, mass and bryan... . Comparison: None. FINDINGS/impression: No definite abnormality seen. Reviewed, dictated and finalized at location A.
== END 2023-12-01 09:18 | disposition home or self-care (01) ==
LOC: MICIMG 09:17
PROVIDERS: PCP Family Medicine; Visit Provider Nurse Practitioner
DX: R19.00 Intra-abdominal and pelvic swelling, mass and lump, unspecified site (principal)
CPT/HCPCS: 76705

== ENCOUNTER 2023-12-15 10:51 | Outpatient (CLI) | payer OTHER, SELFPAY ==
--- NOTE | ~2023-12-15 | DEXA_ITS ---
Bone Density Report Name: JOANNA MANJARREZ Age: 63 Sex: Female Ethnicity: White Date of : 1960 Indication: postmenopausal; screening for osteoporosis; height loss; cancer; hysterectomy; Referring Provider: ALYSSA MARTIN Study: Bone densitometry was performed. Exam Date: December 15, 2023 Accession number: [id number] Bone Density: Region BMD T-score Z-score Classification AP Spine(L1-L4) 1.197 1.4 3.0 Normal Femoral Neck (Left) 0.825 -0.2 1.2 Normal Total Hip (Left) 1.037 0.8 1.9 Normal Femoral Neck (Right) 0.884 0.3 1.7 Normal Total Hip (Right) 1.087 1.2 2.3 Normal Total Hip Mean 1.062 1.0 2.1 Normal World Health Organization criteria for BMD impression classify patients as: Normal (T-score at or above -1.0), Osteopenia (T-score between -1.0 and -2.5), or Osteoporosis (T-score at or below -2.5). 10-year Fracture Risk: FRAX not reported because: All T-scores for Spine Total, Hip Total, Femoral Neck at or above -1.0 Previous Exams: Region Exam Age BMD T-score BMD Change BMD Change Date g/cm2 vs Baseline vs Previous Total Hip(Left) 12/15/2023 63 1.037 0.8 0.013 (1.3%)# 0.013 (1.3%)# 01/24/2020 59 1.024 0.7 Total Hip(Right) 12/15/2023 63 1.087 1.2 0.088 (8.9%)# 0.088 (8.9%)# 01/24/2020 59 0.998 0.5 *Denotes significance at 95% confidence level, LSC for Total Hip = 0.027 g/cm2 # Denotes dissimilar scan types or analysis methods Clinical Information Provided by Patient: Has used the following medications: Vitamin D Has the following medical conditions: Cancer, Hysterectomy, rt breast ca Patient maximum height was 64.0 Menopause Age: 50 No regular weight bearing exercise Does not regularly consume dairy products Drinks caffeinated beverages Onset of menses at age 16 Number of children 2 Impression: The patient has normal bone mass. No significant bone loss was observed. Discussion: BONE DENSITY IS ABOVE THE MINIMUM DESIRABLE LEVEL AT ALL SKELETAL SITES TESTED. This patient?s bone mineral density is above the minimum desirable level (T-score -1.0 or better) at all sites measured. The patient should follow a healthful lifestyle (good nutrition with adequate calcium and vitamin D, and appropriate weight-bearing exercise). Follow-Up: Consider repeating this study in 5 years or sooner if there is some new clinical indication. Reported by: FELIPE on 12/15/2023 11:20:00 AM. Reviewed, dic
== END 2023-12-15 10:52 | disposition home or self-care (01) ==
LOC: ANHIMG 10:52
PROVIDERS: PCP Family Medicine; Visit Provider Family Medicine
DX: M85.88 Other specified disorders of bone density and structure, other site (principal)
CPT/HCPCS: 77080

== ENCOUNTER 2024-06-28 07:21 | Outpatient (CLI) | payer OTHER, SELFPAY ==
--- NOTE | ~2024-06-28 | MM_ITS ---
EXAMINATION: MM screening aissatou BI w travon HISTORY: Screening TECHNIQUE: Craniocaudal and mediolateral oblique 3-D tomosynthesis images were obtained and synthetic 2-D images were generated. CAD analysis was submitted and interpreted. COMPARISON: 05/05/2023 and dating back to 08/07/2018 BREAST PARENCHYMAL COMPOSITION: There are scattered areas of fibroglandular density. FINDINGS: Postoperative change within the upper inner right breast, consistent with patient's history . Punctate and bulky calcifications are detected bilaterally, stable and benign in appearance. Otherwise stable parenchymal pattern without suspicious microcalcifications, unexpected architectural distortion, discrete masses or significant asymmetry. IMPRESSION: 1. No mammographic evidence of recurrent or residual malignancy. 2. Recommend routine screening mammography in one year. BI-RADS Category 2: Benign finding(s). Reviewed, dictated and finalized at location A.
== END 2024-06-28 07:22 | disposition home or self-care (01) ==
LOC: ANHIMG 07:24
PROVIDERS: PCP Family Medicine; Visit Provider Family Medicine
DX: Z12.31 Encounter for screening mammogram for malignant neoplasm of breast (principal)
CPT/HCPCS: 77063; 77067

== ENCOUNTER 2024-12-09 15:16 | Emergency (ER) | payer OTHER, SELFPAY ==
[2024-12-09] VITALS (8 sets, daily range): BP systolic 150–167; BP diastolic 63–91; PULSE 82–98; RESP 16–22; TEMP 36.4; O2SAT 94–98
--- NOTE | ~2024-12-09 | CT_ITS ---
EXAMINATION: CT diagnostic chest wo mariya, 12/09/2024 17:43 CDT HISTORY: Eval pna COMPARISON: No comparisons available. TECHNIQUE: CT scan of the chest was performed without IV contrast. One or more of the following dose reduction techniques were used: automated exposure control, adjustment of the mA and/or kV according to patient size, use of iterative reconstruction technique. FINDINGS: No significant coronary calcification is present ([id number]) LUNGS: No tracheomalacia. No bronchiectasis. Minimal emphysematous changes. No bullous formation. Minimal pulmonary fibrotic changes, no significant honeycombing. Within the right upper lobe and the right lower lobe there are minimal scattered foci of groundglass attenuation. Scattered sub-3 mm microno dules HEART AND PERICARDIUM: Within normal limits. AORTA: Normal caliber aorta. ADENOPATHY/MEDIASTINUM: None. LIMITED VIEWS OF THE ABDOMEN: Mild hepatic steatosis. OSSEOUS STRUCTURES: No acute osseous abnormality.No suspicious lesions. OVERLYING SOFT TISSUES: Unremarkable. THYROID: The thyroid is unremarkable. IMPRESSION: Minimal scattered foci of groundglass attenuation in the right upper and right lower lobes but may be infectious. Follow-up suggested to assess resolution. Reviewed, dictated and finalized at location P.
--- NOTE | ~2024-12-09 | CT_ITS ---
CT HEAD NON-CONTRAST Clinical History: headache Comparison: 08/23/2023 Technique: Unenhanced axial images skull base to vertex Coronal, sagittal reformats CT images acquired with automatic exposure control for dose reduction DLP: 605 mGy-cm Findings: White matter changes, typically chronic microvascular ischemic disease. Sulci, ventricles: Unremarkable. No intracerebral hemorrhage. No evidence acute territorial infarct. No mass effect, midline shift. Bony calvarium intact. Visualized paranasal sinuses: Clear. Mastoid air cells: Clear. IMPRESSION: 1. No acute intracranial findings. Reviewed, dictated and finalized at location R.
--- NOTE | ~2024-12-09 | XR_ITS ---
EXAMINATION: XR chest 1V portable 12/09/2024 15:48 INDICATION: Chest pain TECHNIQUE:A single portable AP upright frontal image of the chest was obtained. COMPARISON: 05/08/2023 FINDINGS: Heart is mildly enlarged, unchanged. No pneumothorax. No pleural effusion. No free air under the diaphragm. The patient is slightly rotated to the right. Small opacities in the mid and lower lungs. IMPRESSION: 1: Small opacities in the mid and lower lungs which represents atelectasis/scarring or infiltrates. If symptoms persist or worsen, consider a short-term follow-up study or additional imaging for further assessment. Reviewed, dictated and finalized at location Q. IMPRESSION: 1: Small opacities in the mid and lower lungs which represents atelectasis/sca rring or infiltrates. If symptoms persist or worsen, consider a short-term follow-up study or additio nal imaging for further assessment.
--- NOTE | 2024-12-09 15:25 | ECG_ITS ---
Test Date: 2024-12-09 15:17:53 Measurements Intervals [place] Rate: 99 P: 23 IA: 116 QRS: -9 QRSD: 93 T: 12 QT: 349 QTc: 449 Interpretive Statements SINUS RHYTHM WITH SHORT IA INTERVAL BORDERLINE T WAVE ABNORMALITY- INFERIOR LEADS BASELINE ARTIFACT- I, II, III, AVR, AVL, AVF, V1, V3-V6 BORDERLINE ECG No previous ECG available for comparison Electronically Signed On 12-09-2024 16:12:11 CDT by Braeden Caldwell D.O.
--- OUTSIDE RECORDS SUMMARY | 2024-12-09 15:44 | XMS_ITS | Clinical Summary ---
Author Organization [facility] Address [address] [place] [address] Care Team Providers Care Supervisor Assembly Department Name Role Phone Royal Hernandez MD Primary Care Provider [phone] Source Comments [facility],non-owned Affiliates and Associated Physician Practices is amultiple site organization consisting of ambulatory clinics and hospital sitesin [place], [place], [place] and [place]. This disclosure is being madepursuant to the Care Everywhere program and may not contain all information available regarding this patient. Last updated 17.[facility] Allergies Active Allergy Reactions Criticality Noted Date Comments Other [Other] Nausea and/or Vomiting 01/06/2013 Any pain pills Received name: Unclassified Drug Per pt she has to be given patch behind her ear and zofran before taking any pain meds. Medications * Be aware that medications may not be up to date on this document. Alwaysverify current medications with the patient. glimepiride (AMARYL) 2 MG tablet 07/14/2013 Active metFORMIN ER 24hr (GLUCOPHAGE XR) 750 MG tablet 02/10/2015 Active levothyroxine (SYNTHROID) 50 MCG tablet 03/07/2015 Active esomeprazole (NEXIUM) 40 MG capsule Take 40 mg by mouth Active blood glucose (ONETOUCH ULTRA TEST STRIPS) test strip 08/19/2013 Active Dulaglutide (TRULICITY SC) Activ e SITagliptin Phosphate (JANUVIA PO) Active Family History Medical History Relation Name Comments Cancer - Other Father Relation Name Status Comments Father Social History Tobacco Use Types Packs/Day Years Used Date Smoking Tobacco: Former Smokeless Tobacco: Never Comments No Sex and Gender Information Value Date Recorded Sex Assigned at Not on file Legal 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 Gender Identity Not on file Sexual Orientation Not on file Last Filed Vital Signs Vital Sign Reading Time Taken Comments Blood Pressure 130/88 07/31/2018 9:44 AM CDT Pulse 96 07/31/2018 9:44 AM CDT Temperature 36.8 C (98.3 F) 07/31/2018 9:44 AM CDT Respiratory Rate 18 07/31/2018 9:44 AM CDT Oxygen Saturation 88% 02/18/2019 5:14 PM FUR PULLER Inhaled Oxygen Concentration - - Weight 78 kg (172 lb) 07/31/2018 9:44 AM CDT Height 162.6 cm (5' 4) 07/31/2018 9:44 AM CDT Body Mass Index 29.52 07/31/2018 9:44 AM CDT Plan of Treatment Health Maintenance Due Date Last Done Comments COLOGUARD (AGES 45-75) - COL ON CA SCREENING 1960 COLON MONITORING 1960 COLONOSCOPY - COLON CA SCREENING 1960 CT COLONOGRAPHY - COLON CA SCREENING 1960 Colorectal Cancer Screening 1960 FIT - COLON CA SCREENING 1960 FLEX SIG - COLON CA SCREENING 1960 LIPID TESTING 1960 HIV SCREENING 07/17/1975 HEPATITIS C SCREENING 07/12/1978 DTAP/TDAP/TD VACCINES (1 - Tdap) 07/17/1979 PNEUMOCOCCAL VACCINE 50+ (1 of 1 - PCV) 2010 ZOSTER VACCINE (1 of 2) 2010 MAMMOGRAM 07/01/2016 07/01/2014 SCREENING FOR DIABETES 08/19/2017 DEPRESSION SCREENING 03/10/2024 COVID-19 VACCINE (1 - 2023-2 5 season) 2024 INFLUENZA VACCINE (#1) 2024 Respiratory Syncytial Virus (RSV) Vaccine Pt: or over 60 yrs (1 - 1-dose 75+ series) 07/17/2035 HEPATITIS B VACCINE Aged Out No longe r eligible based on patient's age to complete this topic HIB VACCINE Aged Out No longer eligi ble based on patient's age to complete this topic HPV VACCINE Aged Out No longer eligi ble based on patient's age to complete this topic MENINGOCOCCAL (Group B) VACC INE SHARED DECISION-MAKING Aged Out No longer eligibl e based on patient's age to complete this topic MENINGOCOCCAL GROUPS A/C/Y/W VACCINE Aged Out No longer eligible b ased on patient's age to complete this topic Insurance [facility] Address: [address] [place] [address] * Guarantor: ROLA MANJARREZ Account Type Relation to Patient Date of Phone Billing Address Personal/Family [address] [place] [address] [facility] SELF PAY NO INSURANCE Member Subscriber Plan / Payer (Ef fective for All Dates) Name:MacekNoreenRola Member ID:Not on file Relation to Subscriber:Not on file Name:NOREEN MANJARREZNDA Subscriber ID:Not on file Address: [address], [id number] Payer ID:Not on file Group ID:Not on file Type:Self Pay Address: [place], [place] * Guarantor: MACEK,ROLA Account Type Relation to Patient Date of Phone Billing Address Personal/Family [address] [place], [id number] SELF PAY NO INSURANCE Member Subscriber Plan / Payer (Ef fective for All Dates) Name:MacekNoreenRola Member ID:Not on file Relation to Subscriber:Not on file Name:NOREEN MANJARREZNDA Subscriber ID:Not on file Address: [address], [id number] Payer ID:Not on file Group ID:Not on file Type:Self Pay Address: [place], [place] * Guarantor: LOKIROLA Account Type Relation to Patient Date of Phone Billing Address Personal/Family [address], [phone] [employer] SELF PAY NO INSURANCE Member Subscriber Plan / Payer (Ef fective for All Dates) Name:Macek Rola Member ID:Not on file Relation to Subscriber:Not on file Name:MACEKROLA Subscriber ID:Not on file Address: [address] [place] [address] [place] [address] Payer ID:Not on file Group ID:Not on file Type:Self Pay Address: [place], [place] Care Teams Supervisor Assembly Department Relationship Specialty Start Date End Date Royal Hernandez MD [address] [place] [address] PCP - General Family Medicine 08/19/17
--- OUTSIDE RECORDS SUMMARY | 2024-12-09 15:44 | XMS_ITS | Clinical Summary ---
Author Organization [facility] [place] Address [address] [place] [address] Phone Care Team Providers Care Heading Up Machine Operator Name Role Phone Royal Hernandez MD Primary Care Provider [phone] Allergies Active Allergy Reactions Criticality Noted Date Comments Unclassified Drug Nausea and Vomiting Low 3 Medications lisinopril-hy drochlorothia zide (ZESTORETIC) 10-12.5 mg tablet Take 1 Tab by mouth daily. Active esomeprazole (NEXIUM) 40 mg Capsule, Delayed Release(E.C.) Take 40 mg by mouth daily before breakfast. A ctive ONE TOUCH ULTRA TEST Strip 08/20/19 14 Active levothyroxine 50 mcg tablet 03/07/20 15 Active metFORMIN (GLUCOPHAGE) 1,000 mg tablet Take 1 Tablet by mouth 2 times daily. 07/24/19 20 Active scopolamine (Transderm-Sc op) 1 mg/72 hr patch UNW AND BINTA 1 PA TOPICALLY BEHIND THE EAR Q 3 DAYS prn 10/12/19 18 Active metoclopramid e HCl (REGLAN) 10 mg tablet TK 1 T PO QHS 10/18/19 18 Active fluconazole (DIFLUCAN) 150 mg tablet TK 1 T PO D PRF YEAST INFECTION OR SYMPTOMS 08/16/19 20 Active estradioL (ESTRACE) 0.01% (0.1 mg/g) vaginal cream Insert 2 Grams vaginally. 10/29/19 19 Active escitalopram oxalate (LEXAPRO) 10 mg tablet Take 1 Tablet by mouth daily. 10/10/19 19 Active dulaglutide (TRULICITY) 0.75 mg/0.5 mL injection Inject by subcutaneous injection. 08/23/19 18 Active Farxiga 10 mg Tablet 06/15/19 20 Active Black Cohosh 540 mg Capsule Take by mouth. Activ e ergocalcifero l, vitamin D2, (VITAMIN D ORAL) 09/24/2016Vitamin d3 complete, po solid 18-800-150 TabletPOdailyCurrent Medication 09/25/19 17 Active MULTIVITAMIN ORAL 09/24/2016Women's one daily, po solid 500-18-0.4 TabletPOdailyCurrent Medication 09/25/19 17 Active Active Problems Patient Care Coordination No te Formatting of this note migh t be different from the original. 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 Here with [facility] Exercises now with management trainer Diet not good TC x 4 with hercetpin HTN (hypertension) Acid reflux Resolved Problems Problem Noted Date Diagnosed Date Resolved Date Abnormal mammogram, unspecified 01/06/2013 01/11/2013 Immunizations Immunization Administration Dates Next Due INFLUENZA VACCINE QUADRIVALE NT 3 YR UP PF IM 12/12/2021,11/01/2018 Influenza Seasonal Unspecifi ed Formulation IM 09/24/2016,09/26/2015,08/30/2014,2013,02/02/2013 Family History Medical History Relation Name Comments Healthy Brother Lung Cancer Father asbestosis Breast Cancer Maternal Aunt s/p CVA Lung Cancer Mother asbestosis age 72 Healthy Sister Colon Cancer Neg Hx Ovarian Cancer Neg Hx Uterine Cancer Neg Hx Relation Name Status Comments Brother Father Maternal Aunt s/p CVA Mother Sister Social History Tobacco Use Types Packs/Day Years Used Date Smoking Tobacco: Former Cigarettes 1 40 0 03/10/1967 - 03/10/2007 Smokeless Tobacco: Never Tobacco Cessation:Counseling Given: No Comments:quit 2007 Alcohol Use Standard Drinks/Week Comments Yes 0 (1 standard drink = 0.6 oz pur e alcohol) rare Comments No Sex and Gender Information Value Date Recorded Sex Assigned at Not on file Legal Sex Female 4:13 PM CDT Gender Identity Not on file Sexual Orientation Not on file 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 End 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 Not on file Not on file Not on file Last Filed Vital Signs Vital Sign Reading Time Taken Comments Blood Pressure 136/84 09/03/2019 8:38 AM CDT Pulse 99 09/03/2019 8:38 AM CDT Temperature 37.1 C (98.7 F) 09/03/2019 8:38 AM CDT Respiratory Rate 18 09/03/2019 8:38 AM CDT Oxygen Saturation 96% 09/03/2019 8:38 AM CDT Inhaled Oxygen Concentration - - Weight 75.3 kg (166 lb) 09/03/2019 8:38 AM CDT Height 162.6 cm (5' 4) 09/03/2019 8:38 AM CDT Body Mass Index 28.49 09/03/2019 8:38 AM CDT Plan of Treatment Health Maintenance Due Date Last Done Comments COLORECTAL SCREENING 2005 Colorectal Cancer Screening 2005 FIT-DNA Q 3 years 2005 FIT/FOBT Q 1 year 2005 Flex Sig/CT Colonography Q 5 years 2005 ZOSTER VACCINE (1 of 2) 2010 BREAST CANCER SCREENING 07/02/2015 07/02/19 15, 01/05/2014, 01/06/2013, Additional history exists RSV VACCINE (60+ or ) (1 - Risk 60-74 years 1-dose series) 2020 INFLUENZA VACCINE (#1) 2024 2, 11/01/2018, 11/01/2018, Additional history exists DTAP/TDAP/TD VACCINES (3 - T d or Tdap) 04/14/2026 04/14/2016, 12/16/2015 Procedures Procedure Name Priority Date/Time Associated Diagnosis Comments MAMMO DIAGNOSTIC UNI RIGHT W OR WO CAD Routine 07/01/2014 from Last 3 Months or Most Recently Relevant to Health Maintenance Results * MAMMO DIGITAL DIAG UNI RIGHT (07/01/2014) Anatomical Region Laterality Modality Breast Right Other us Royal Hernandez MD MAMMO ORDERABLES Edited Result - Final from Last 3 Months or Most Recently Relevant to Health Maintenance Insurance [facility] OPTIONS PPO [id number] [facility] OPEN ACCESS Advance Directives For more information, please contact: [phone] * Full Code (Latest Code Status on File) Date Activated Date Inactivated Comments 01/19/2013 12:22 PM 01/19/2013 8:01 PM * Full Code Date Activated Date Inactivated Comments 01/19/2013 9:30 AM 01/19/2013 12:22 PM Care Teams Heading Up Machine Operator Relationship Specialty Start Date End Date Royla Hernandez MD [address] [place] [id number] PCP - General Family Practice 07/03/20
--- OUTSIDE RECORDS SUMMARY | 2024-12-09 15:44 | XMS_ITS | Clinical Summary ---
Author Organization [facility] Address [address] [place] [address] Phone Care Team Providers Care Gauger Chief Delivery Name Role Phone Martha Milian DO Primary Care Provider [phone] Allergies Active Allergy Reactions Criticality Noted Date Comments Other Nausea & Vomiting Low 01/06/2013 Any pain pills Received name: Unclassified Drug Per pt she has to be given patch behind her ear and zofran before taking any pain meds. Unclassified Drug Nausea And Vomiting 3 Any pain pills Medications esomeprazole DR (NexIUM) 40 mg capsule 08/23/19 18 Active SYNTHROID 50 mcg tablet 10/25/19 18 Active multivit,calc ,mins/iron/fo lic (WOMEN'S ONE DAILY ORAL) 09/24/2016Women's one daily, po solid 500-18-0.4 TabletPOdailyCurrent Medication 09/25/19 17 Active cholecalcifer ol, vitamin D3, (VITAMIN D3 ORAL) 09/24/2016Vitamin d3 complete, po solid 18-800-150 TabletPOdailyCurrent Medication 09/25/19 17 Active atorvastatin (LIPITOR) 20 mg tablet 10/04/19 20 Active fenofibrate (TRIGLIDE) 160 mg tablet 10/07/19 20 Active BD Ultra-Fine Cyn Pen Needle 32 gauge x 5/32 needle 09/29/19 20 Active metFORMIN XR (GLUCOPHAGE XR) 500 mg 24 hr tablet 09/30/19 20 Active gabapentin (NEURONTIN) 300 mg capsule TAKE 1 CAPSULE TWICE A DAY 180 capsule 3 07/07/19 21 Active insulin lispro (HumaLOG, ADMELOG) 100 unit/mL pen for injection Inject under the skin TID prn Active insulin NPH (HumuLIN N, NovoLIN N) 100 unit/mL (3 mL) pen for injection Inject 40 Units under the skin daily Active losartan (COZAAR) 25 mg tablet Take 1 tablet (25 mg total) by mouth daily Act miguelina estradioL (ESTRACE) 0.01 % (0.1 mg/gram) vaginal cream Insert 2 g into the vagina as needed ( NEEDED FOR VAGINAL DRYNESS) 42.5 g 1 10/16/19 23 Active Active Problems Problem Noted Date Diagnosed Date 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 23 Malignant neoplasm of upper- inner quadrant of right breast in female, estrogen receptor negative 10/03/2017 Immunizations Immunization Administration Dates Next Due Flucelvax Influenza Quad 12/21/2016 Influenza, Quadrivalent, Spl it, Intramuscular 11/01/2018 Influenza, Quadrivalent, Spl it, Preservative Free, Intramuscular 11/27/2017,12/17/2015 Influenza, Trivalent, IM (MDV) 7,09/26/2015,08/30/2014,12/07,02/02/2013 Influenza, Trivalent, Preser vative Free, Intramuscular 12/19/2014 Influenza, Unspecified 09/24/2016,2015,08/30/2014,12/07,02/02/2013 Moderna SARS-CoV-2 Monovalen t Vaccination (12+ YRS) 05/27/2020,04/29/2020 Pneumococcal Conjugate PCV 13 12/16/2015 Tdap 04/14/2016,12/16/2015 Surgical History Surgery Date Site/Laterality Comments BREAST BIOPSY COLONOSCOPY 03/10/2021 - 03/09/2022 HERNIA REPAIR COLON SURGERY APPENDECTOMY BREAST BIOPSY 01/06/2013 Right Medical History Medical History Date Comments Breast cancer (HCC) Diabetes mellitus Family History Medical History Relation Name Comments Stroke Brother Cancer Father Diabetes Father COPD Mother Diabetes type II Sister No Known Problems Son 1 No Known Problems Son 2 Relation Name Status Comments Brother Alive Father Mother Sister Alive Son 1 Alive Son 2 Alive Social History Tobacco Use Types Packs/Day Years Used Date Smoking Tobacco: Former Cigarettes 1.5 40 1 969 - 2009 Smokeless Tobacco: Never Alcohol Use Standard Drinks/Week Comments Yes 0 (1 standard drink = 0.6 oz pur e alcohol) occasionally Personal Safety Answer Date Recorded Getting School Help Needed Not on file 03/15 Comments Unknown Sex and Gender Information Value Date Recorded Sex Assigned at Not on file Legal Sex Female 4:19 PM CORPORATION PILOT Gender Identity Not on file Sexual Orientation Not on file Obstetrics History Last Filed Vital Signs Vital Sign Reading Time Taken Comments Blood Pressure 135/83 10/15/2022 12:56 PM CDT Pulse 92 10/15/2022 12:56 PM CDT Temperature 36.4 C (97.6 F) 10/15/2022 12:56 PM CDT Respiratory Rate 17 10/15/2022 12:56 PM CDT Oxygen Saturation 95% 10/15/2022 12:56 PM CDT Inhaled Oxygen Concentration - - Weight 85.5 kg (188 lb 6.4 oz) 10/15/2022 12:56 PM CDT Height 162.6 cm (5' 4) 10/15/2022 12:56 PM CDT Body Mass Index 32.34 10/15/2022 12:56 PM CDT Plan of Treatment Health Maintenance Due Date Last Done Comments Cervical Cancer Screening 1960 Colon Cancer Screening-Colonoscopy 1960 Depression Screening 1960 Hepatitis C Screening 1960 Hepatitis B Screening 1978 Regular Well Visit/Exam 18-64 1978 Zoster Vaccine (1 of 2) 2010 Breast Cancer Screening-Mammogram 02/07/2023 02/07/2022, 01/04/2021, 01/05/2014, Additional history exists Covid-19 Vaccine (2024- season) 2024 05/27/2020, 04/29/2020 Influenza Vaccine (#1) 2024 2, 11/01/2018, 11/27/2017, Additional history exists DTaP/Tdap/Td Vaccine (3 - Td or Tdap) 04/14/2026 04/14/2016, 12/16/2015 Pneumococcal vaccine <65 Aged Out 12/16/2015 No longer eligible based on patient's age to complete this topic Procedures Procedure Name Priority Date/Time Associated Diagnosis Comments SCREENING MAMMOGRAM 2D BILATERAL Schedule Routine, Read Routine (OP Routine) 02/07/2022 3:32 PM CORPORATION PILOT from Last 3 Months or Most Recently Relevant to Health Maintenance Results * Screening Mammogram 2D Bilateral (02/07/2022 3:32 PM CORPORATION PILOT) Anatomical Region Laterality Modality Breast Bilateral Mammography Historical Provider MD HOWARD MAMMO PROCEDURES Karen l Result from Last 3 Months or Most Recently Relevant to Health Maintenance [facility] Care Teams Gauger Chief Delivery Relationship Specialty Start Date End Date Martha Milian DO PCP - General Family Medicine 10/27/19
[2024-12-09 16:25] LABS: Hematocrit 40.2 % (37.0-47.0); Hemoglobin 12.9 g/dL (12.0-15.0); Immature Granulocyte Percent A 0.5 % (0-0.5); Immature Platelet Fraction Pct 2.5 % (0.9-11.2); Lymphocytes Absolute Auto 1.45 K/mm3 (0.9-3.2); Mean Corpuscular HGB Conc 32.1 g/dl (32-36); Mean Corpuscular Hemoglobin 29.1 pg (26-34); Mean Corpuscular Volume 90.5 fl (80-100); Nucleated Red Blood Cells Absolute Auto 0.000 K/mm3 (0.0-0.012); Nucleated Red Blood Cells Perc 0.0 % (0.0-0.2); Platelet Count Result 147 k/mm3 (150-375); Red Blood Count 4.44 M/mm3 (4.2-5.4); White Blood Count 7.5 K/mm3 (4.5-10.0)
[2024-12-09 16:37] LABS: Alanine Aminotransferase 24 U/L (6-35); Albumin Level 3.8 g/dL (3.5-5.1); Alkaline Phosphatase 67 U/L (38-126); Anion Gap 6 mmol/L (4-12); Aspartate Amino Transferase 26 U/L (14-36); Bilirubin,Total 0.6 mg/dL (0.2-1.3); Blood Urea Nitrogen 20 mg/dL (7-17); Calcium 8.6 mg/dL (8.4-10.2); Carbon Dioxide 29 mmol/L (22-30); Chloride 102 mmol/L (98-107); Estimated Glomerular Filt Rate > 60; Glucose 133 mg/dL (65-110); Lipase 189 U/L (23-300); Potassium 3.7 mmol/L (3.4-5.0); Sodium 137 mmol/L (137-145); Total Protein 6.5 g/dL (6.3-8.2)
[2024-12-09 16:43] LABS: INR 1.0; Partial Thromboplastin Time 26.0 Seconds (22.3-36.8); Prothrombin Time 13.4 Seconds (11.1-14.7)
[2024-12-09 16:47] LABS: Troponin I < 0.012 ng/mL (0.000-0.034)
[2024-12-09 17:41] LABS: Influenza A QL RT-PCR Negative (Negative); Influenza B QL RT-PCR Negative (Negative); RSV RNA, RT-PCR Negative (Negative); SARS-CoV-2 RNA PCR Negative (Negative)
[2024-12-09 17:52] LABS: NT Pro B Type Natriuretic Pept 69 pg/mL (19.9-100)
--- NOTE | 2024-12-09 18:30 | ECG_ITS ---
Test Date: 2024-12-09 18:32:57 Measurements Intervals [place] Rate: 84 P: 13 SD: 115 QRS: -20 QRSD: 97 T: -5 QT: 381 QTc: 451 Interpretive Statements SINUS RHYTHM WITH SHORT SD INTERVAL MINIMAL Q WAVES- HIGH LATERAL LEADS BORDERLINE T WAVE ABNORMALITY- INFERIOR LEADS BORDERLINE ECG Compared to ECG 12/09/2024 15:17:53 No significant changes Electronically Signed On 12-09-2024 19:30:47 CDT by Braeden Caldwell D.O.
[2024-12-09 19:16] LABS: Troponin I < 0.012 ng/mL (0.000-0.034)
[2024-12-09] MEDS: LACTATED RINGERS 500 ML 999 ML IV CONT (20:22)
[2024-12-09] MEDS: ACETAMINOPHEN 500 MG TABLET 1000 MG PO (20:22)
[2024-12-09] MEDS: KETOROLAC 15 MG/ML VIAL (*BKC) IV PUSH (20:22)
--- NOTE | 2024-12-09 21:29 | ED.GENADULT ---
HPI - General Adult General Chief complaint: Chest Pain Stated complaint: CP, headache Time Seen by Provider: 12/09/24 15:31 History of Present Illness HPI narrative: This is a 64-year-old female presenting with viral symptoms. Patient has having a headache and cough for last several days since she was exposed to her sick grandchildren. She developed chest tightness earlier today which prompted her to come to the ED although that has since resolved. She also has a frontal headache. She feels weak overall. She has had nausea and vomiting no diarrhea. She denies fevers chills shortness of breath urinary symptoms. Related Data Home Medications ?Medication ?Instructions ?Recorded ?Confirmed ?Last Taken ?Type metoclopramide HCl 10 mg tablet 10 mg PO DAILY PRN Nausea 09/19/23 11/11/24 Unknown History Allergies Allergy/AdvReac Type Severity Reaction Status Date / Time codeine AdvReac Mild Nausea Verified 11/11/24 14:48 hydrocodone AdvReac Mild Nausea and Verified 11/11/24 14:48 Vomiting hydromorphone AdvReac Mild Nausea and Verified 11/11/24 14:48 Vomiting lisinopril AdvReac Mild Cough Verified 11/11/24 14:48 morphine AdvReac Mild Nausea and Verified 11/11/24 14:48 Vomiting Opioids - Morphine Analogues AdvReac Mild Nausea and Verified 11/11/24 14:48 Vomiting oxycodone AdvReac Mild Nausea and Verified 11/11/24 14:48 Vomiting PMFSH Past Medical History Medical History Wound of foot Adhesive capsulitis of right shoulder Hemoglobin A1c less than 7.0% 03/25/20 A1C = 6.6 delivery delivered 1988 and 1992 Breast cancer HTN (hypertension) Hypothyroidism Hyperlipidemia Diabetes mellitus, new onset Surgical History Surgical History Status post breast reduction (~06/2021) History of hernia surgery (~2016) History of lumpectomy of right breast (~2012) H/O: hysterectomy (~2010) Total Family History Family History Father Diabetes mellitus Family history of lung cancer Family history of coronary artery disease Grandparent Cerebrovascular accident Family history of lung cancer Other Family history of chronic obstructive pulmonary disease Social History Social History Smoking packs per day: 1 Smoking cigarettes per day: 20.0 Years smoked: 30 Smoking pack-years: 30.00 Smoking status: Former smoker Tobacco type: cigarettes Second hand tobacco smoke exposure: No Smoking end date: 03/10/08 Alcohol intake: current Alcohol use details: rarely Substance use: never Substance use type: does not use Lack of Transportation: No Lack of Food: Never True Current Housing: I Have Housing Concerned About Future Housing: No Difficulty Paying Gas/Electric Bills: No Difficulty Paying for Meds: No Currently Unemployed: No Education: High School Diploma/GED Difficulty w/ Childcare or Family Care: No Living arrangements: with family Additional living arrangements comments: LIVES WTIH SIGNIFICANT OTHER Occupation/Education: occupation Additional occupation/education comments: [employer] Gender identity (if verbalized by the patient): Female Sexual Orientation (if Verbalized by the Patient): Straight or Heterosexual Spiritual care concerns: No Exam Narrative: APPEARANCE: No apparent distress. Pleasant polite, A&O x3 Head: atraumatic. EYES: EOMI, NOSE: Atraumatic NECK: Trachea midline RESPIRATORY: No increased rate of breathing clear to auscultation CARDIOVASCULAR: RRR, no peripheral edema ABDOMINAL: Non-distended soft nontender MUSCULOSKELETAl: No obvious deformities NEURO: Alert. Cranial nerves 2-12 grossly intact. Sensation light touch, motor function cerebellar function intact for 4 extremities. Gait exam was normal. SKIN:: Warm, dry. Normal color PSYCHIATRIC: Normal affect Course Vital Signs Vital signs: Vital Signs Temperature 97.6 F 12/09/24 15:13 Pulse Rate 98 12/09/24 15:13 Respiratory Rate 22 H 12/09/24 15:13 Pulse Oximetry 97 12/09/24 15:13 Oxygen Delivery Room Air 12/09/24 15:13 Temperature 97.6 F 12/09/24 15:13 Pulse Rate 85 12/09/24 18:17 Respiratory Rate 19 12/09/24 18:17 Blood Pressure 156/63 H 12/09/24 18:17 Pulse Oximetry 94 12/09/24 18:17 Oxygen Delivery Room Air 12/09/24 15:27 Medical Decision Making MDM Narrative Medical decision making narrative: -Course: 64-year-old female presenting with viral symptoms after being exposed to her sick grandchildren. Main symptoms include headache, chest tightness and nausea and vomiting. Vital signs are stable and she is well appearing overall. CT chest showed some mild ground-glass opacities. Otherwise her imaging and lab work were unremarkable. Suspect these ground-glass opacities are from viral illness from her grandchildren. Patient received fluids Toradol and Tylenol with improvement. On reassessment her vital signs are still stable. She was able to walk around the ED with a steady gait. She will be discharged home on antibiotics 4 to cover pneumonia. Stressed the importance of returning to the ED for condition is to worsen. Patient is agreeable to the plan. -DDX includes but is not limited to: Viral syndrome, pneumonia, dehydration migraine tension headache intracranial hemorrhage Vital Signs Vital Signs: Vital Signs Temperature 97.6 F 12/09/24 15:13 Pulse Rate 98 12/09/24 15:13 Respiratory Rate 22 H 12/09/24 15:13 Pulse Oximetry 97 12/09/24 15:13 Oxygen Delivery Room Air 12/09/24 15:13 Temperature 97.6 F 12/09/24 15:13 Pulse Rate 85 12/09/24 18:17 Respiratory Rate 19 12/09/24 18:17 Blood Pressure 156/63 H 12/09/24 18:17 Pulse Oximetry 94 12/09/24 18:17 Oxygen Delivery Room Air 12/09/24 15:27 Lab Data 12/09/24 16:17 12/09/24 16:17 Labs: Lab Results 12/09/24 12/09/24 12/09/24 Range/Units 16:17 16:59 18:33 WBC 7.5 (4.5-10.0) K/mm3 RBC 4.44 (4.2-5.4) M/mm3 Hgb 12.9 (12.0-15.0) g/dL Hct 40.2 (37.0-47.0) % MCV 90.5 (80-100) fl MCH 29.1 (26-34) pg MCHC 32.1 (32-36) g/dl RDW 13.7 (11.5-14.5) % Plt Count 147 L (150-375) k/mm3 MPV 9.7 (7.4-10.4) fl Immature Gran % (Auto) 0.5 (0-0.5) % Neut % (Auto) 72.0 (45.5-73.1) % Lymph % (Auto) 19.3 (18.3-44.2) % Avery % (Auto) 6.9 (2.6-8.5) % Eos % (Auto) 0.9 (0-4.4) % Baso % (Auto) 0.4 (0.2-1.2) % Lymph # (Auto) 1.45 (0.9-3.2) K/mm3 Avery # (Auto) 0.5 (0.1-0.6) K/mm3 Eos # (Auto) 0.1 (0-0.3) K/mm3 Baso # (Auto) 0.0 (0.0-0.1) K/mm3 Abs Immat Gran (auto) 0.04 H (0.00-0.031) K/mm3 Absolute Neuts (auto) 5.4 (1.3-6.7) K/mm3 Absolute Nucleated RBC 0.000 (0.0-0.012) K/mm3 Nucleated RBC % 0.0 (0.0-0.2) % % Immature Plt Fraction 2.5 (0.9-11.2) % PT 13.4 (11.1-14.7) Seconds INR 1.0 APTT 26.0 (22.3-36.8) Seconds D-Dimer < 0.27 (<0.48) ug/mL Sodium 137 (137-145) mmol/L Potassium 3.7 (3.4-5.0) mmol/L Chloride 102 (98-107) mmol/L Carbon Dioxide 29 (22-30) mmol/L Anion Gap 6 (4-12) mmol/L BUN 20 H (7-17) mg/dL Creatinine 0.59 L (0.7-1.0) mg/dL Estim Creat Clear Calc Not Reportable Estimated GFR > 60 (59 - ) Glucose 133 H (65-110) mg/dL Calcium 8.6 (8.4-10.2) mg/dL Total Bilirubin 0.6 (0.2-1.3) mg/dL AST 26 (14-36) U/L ALT 24 (6-35) U/L Alkaline Phosphatase 67 (38-126) U/L Troponin I < 0.012 < 0.012 (0.000-0.034) ng/mL NT-Pro-B Natriuret Pep 69 (19.9-100) pg/mL Total Protein 6.5 (6.3-8.2) g/dL Albumin 3.8 (3.5-5.1) g/dL Lipase 189 (23-300) U/L Influenza A (RT-PCR) Negative (Negative) Influenza B (RT-PCR) Negative (Negative) RSV (RT-PCR) Negative (Negative) SARS-CoV-2 RNA (RT-PCR) Negative (Negative) Discharge Plan Discharge Clinical Impression: PNA (pneumonia), Head ache Patient Disposition: Home Condition: Stable Instructions: Antibiotic Form, Community Acquired Pneumonia (ED) Additional Instructions: You were seen in the emergency department for a headache and chest tightness. Your chest x-ray is concerning for pneumonia. Please complete a course of Augmentin and doxycycline. Your condition is to worsen, you develop chest pain, worsening shortness of breath or weakness I want you to return to the emergency department immediately for re-evaluation. Otherwise follow-up with your primary care physician in 3-5 days. Patient Language: Citizen [place] Prescriptions: New doxycycline hyclate 100 mg capsule 100 mg PO DAILY Qty: 14 0RF amoxicillin-pot clavulanate 875-125 mg tablet 1 tablet PO Q12H Qty: 14 0RF No Action Voquezna 20 mg tablet 20 mg PO BID 90 Days Qty: 180 3RF buspirone 7.5 mg tablet 7.5 mg PO BID Qty: 180 0RF (DME) Dexcom G7 Sensor Device See Rx Instructions .Route Qty: 9 2RF Rx Instructions: As directed (DME) Dexcom G7 First Aid Director Misc See Rx Instructions .Route Qty: 3 3RF Rx Instructions: As directed (DME) OneTouch Verio test strips Strip See Rx Instructions .Route Qty: 100 4RF Rx Instructions: As directed insulin degludec [Tresiba FlexTouch U-100] 100 unit/mL (3 mL) insulin pen See Rx Instructions .ROUTE .COMPLEX Qty: 45 1RF Dose Instruction: INJECT 56 UNITS UNDER THE SKIN EVERY EVENING Rx Instructions: INJECT 56 UNITS UNDER THE SKIN EVERY EVENING albuterol sulfate 90 mcg/actuation HFA aerosol inhaler 2 puff inhalation Q4H PRN (Reason: shortness of breath or wheezing) Qty: 8.5 3RF (DME) blood sugar diagnostic Strip See Rx Instructions .ROUTE .MEDSUPPLY Qty: 100 5RF Rx Instructions: BID cyanocobalamin (vitamin B-12) 1,000 mcg/mL solution 1,000 mcg IM WEEKLY Qty: 12 3RF fenofibrate 160 mg tablet 160 mg PO HS Qty: 90 1RF metformin 500 mg tablet extended release 24 hr See Rx Instructions .ROUTE .COMPLEX Qty: 180 1RF Dose Instruction: TAKE 1 TABLET TWICE A DAY BEFORE MEALS Rx Instructions: TAKE 1 TABLET TWICE A DAY BEFORE MEALS hydrochlorothiazide 12.5 mg tablet 12.5 mg PO DAILY Qty: 90 1RF (DME) insulin syringe-needle U-100 1 mL 31 gauge x 5/16 syringe See Rx Instructions .ROUTE .COMPLEX Qty: 10 4RF Dose Instruction: USE TO INJECT B12 WEEKLY Rx Instructions: USE TO INJECT B12 WEEKLY gabapentin 300 mg capsule 300 mg PO DAILY Qty: 90 1RF Mounjaro 15 mg/0.5 mL pen injector 15 mg subcut WEEKLY Qty: 6 1RF duloxetine 60 mg capsule,delayed release(DR/EC) 60 mg PO DAILY Qty: 90 1RF losartan 50 mg tablet 50 mg PO DAILY Qty: 90 1RF atorvastatin 20 mg tablet 20 mg PO DAILY Qty: 90 1RF Rx Instructions: TAKE 1 TABLET DAILY ergocalciferol (vitamin D2) [Vitamin D2] 1,250 mcg (50,000 unit) capsule 1,250 mcg PO WEEKLY Qty: 12 1RF levothyroxine 75 mcg tablet 75 mcg PO DAILY Qty: 90 1RF Rx Instructions: 75 mcg orally daily methylprednisolone [Medrol (Romeo)] 4 mg tablets,dose pack See Rx Instructions PO PER PKG DIR Qty: 21 0RF Rx Instructions: PO PER PKG DIR insulin lispro [Humalog KwikPen Insulin] 100 unit/mL insulin pen 1 sliding scale dose subcut USEASDIRECTD Qty: 45 2RF Rx Instructions: PER SLIDING SCALE: Max dose per day of Humalog is 40units. (DME) pen needle, diabetic [Advocate Pen Needle] 32 gauge x 5/32 needle See Rx Instructions .Route Qty: 400 2RF Rx Instructions: Use with Insulin checks 4x/day metoclopramide HCl 10 mg tablet 10 mg PO DAILY PRN (Reason: Nausea) Rx Instructions: TAKE 1 TABLET DAILY Follow-up/Referrals: Martha Milian DO [Primary Care Provider, Family Practice] Stand Alone Forms: Work/School Release IP
== END 2024-12-09 21:56 | disposition home or self-care (01) ==
PROVIDERS: Emergency Provider Emergency Medicine; PCP Family Medicine
DX: J18.9 Pneumonia, unspecified organism (principal); R51.9 Headache, unspecified; Z20.822 Contact with and (suspected) exposure to COVID-19; I10 Essential (primary) hypertension; E03.9 Hypothyroidism, unspecified; E78.5 Hyperlipidemia, unspecified; E11.9 Type 2 diabetes mellitus without complications; Z85.3 Personal history of malignant neoplasm of breast; Z87.891 Personal history of nicotine dependence; Z90.710 Acquired absence of both cervix and uterus; Z79.4 Long term (current) use of insulin; Z79.899 Other long term (current) drug therapy; Z79.84 Long term (current) use of oral hypoglycemic drugs; Z79.85 Long-term (current) use of injectable non-insulin antidiabetic drugs; R94.31 Abnormal electrocardiogram [ECG] [EKG]
CPT/HCPCS: 36415; 70450; 71045; 71250; 80053; 83690; 83880; 84484; 85025; 85055; 85380; 85610; 85730; 87637; 93005; 96374; 99284; A9270; J1885; J7120

== ENCOUNTER 2024-12-30 15:58 | Outpatient (CLI) | payer OTHER, SELFPAY ==
--- NOTE | ~2024-12-30 | CT_ITS ---
EXAMINATION: CT chest high resolution wo hi DATE: 12/30/2024 16:20 INDICATION: Evaluate pneumonia TECHNIQUE: Computed tomography (CT) of the chest was performed without intravenous contrast. The dose-length product was 248.44 mGy-cm. COMPARISON: CT dated 12/10/2019 FINDINGS: Heart size normal. Small hiatal hernia. No thoracic lymphadenopathy. No significant pleural or pericardial effusion. There is an incompletely included hypodense lesion left kidney, most likely benign. There are improving reticulonodular densities of the right upper and middle lobe, most likely infectious/inflammatory. No endobronchial lesions. No pneumothorax. Moderate thoracic spondylosis. IMPRESSION: 1. Improving reticulonodular densities in the right upper and middle lobe, most likely resolving infectious/inflammatory process. Reviewed, dictated and finalized at location O.
--- OUTSIDE RECORDS SUMMARY | 2024-12-30 16:43 | XMS_ITS | Clinical Summary ---
Author Organization [facility] [address] Address [address] [place] [address] Phone Care Team Providers Care Equity Director Name Role Phone Royal Hernandez MD Primary Care Provider [phone] Allergies Active Allergy Reactions Criticality Noted Date [...] different from the original. Primary Care: Royal Hernadnez MD Referring Provider: Royal Hernandez MD [address] [place] [address] Other: Dr Khadra Golden Problem Noted Date Diagnosed Date Hematoma 02/15/2013 Breast cancer Overview (02/01/2013): 01/06/13 Stage 1 ( T1bN0 Mx) [facility] RIGHT breast ER - [place] - HER2/joy 2.4 Ki67 54% S/p lumpectomy and SLND 0:1ln 0.7cm (core 1.5cm) Needs TC x 4 with a year of herceptin Assessment & Plan (02/01/2013 9:18 AM PLACEMENT SPECIALIST): [facility] Or [facility] Here with Jonathan Exercises now with ehr trainer Diet not good TC x 4 [...] Flex Sig/CT Colonography Q 5 years 2005 RSV VACCINE (60+ or ) (1 - Risk 50-74 years 1-dose series) 2010 ZOSTER VACCINE (1 of 2) 2010 BREAST CANCER SCREENING 07/02/2015 07/02/19 15, 01/05/2014, 01/06/2013, Additional history exists INFLUENZA VACCINE (#1) 2024 2, 11/01/2018, 11/27/2017, Additional history exists DTAP/TDAP/TD VACCINES (3 - [...] Most Recently Relevant to Health Maintenance Insurance [facility] [employer] PPO [id number] [facility] Advance Directives For more information, please contact: [phone] * Full Code (Latest Code Status on File) Date Activated Date Inactivated Comments 01/19/2013 12:22 PM 01/19/2013 8:01 PM * Full Code Date Activated Date Inactivated Comments 01/19/2013 9:30 AM 01/19/2013 12:22 PM Care Teams Equity Director Relationship Specialty Start Date End Date Royal Hernandez MD [address] [place] [address] PCP - General Family Practice 07/03/20
--- OUTSIDE RECORDS SUMMARY | 2024-12-30 16:43 | XMS_ITS | Clinical Summary ---
Author Organization [facility] Address [address] [place] [address] Phone Care Team Providers Care Revenue Inspector Name Role Phone Martha Milian DO Primary Care Provider [phone] Allergies Active Allergy Reactions Criticality Noted Date [...] on file Legal Sex Female 4:19 PM PATROL GUARD Gender Identity Not on file Sexual Orientation [...] Read Routine (OP Routine) 02/07/2022 3:32 PM PATROL GUARD from Last 3 Months or Most Recently Relevant to Health Maintenance Results * Screening Mammogram 2D Bilateral (02/07/2022 3:32 PM PATROL GUARD) Anatomical Region Laterality Modality Breast Bilateral Mammography Historical Provider MD [facility] Karen l Result from Last 3 Months or Most Recently Relevant to Health Maintenance Insurance [facility] Care Teams Revenue Inspector Relationship Specialty Start Date End Date Martha Milian DO PCP - General Family Medicine 10/27/19
--- OUTSIDE RECORDS SUMMARY | 2024-12-30 16:43 | XMS_ITS | Data Portability ---
Author Organization [facility], Main Office Address [address] [place] [address] Assessment No assessment recorded. Plan of Treatment Reminders Order Date Submit Date Provider Last Modified By Organization Details Last Modified Time Details Appointments None recorded. Lab HbA1c (hemoglobin A1c), blood 2022 023 [email or web address] 1 [facility], [address], [place], [address], 3 12:37:09 CMP, serum or plasma 2022 023 [email or web address] 1 [facility], [address], [place], [address], 3 12:37:09 microalbumi n/creatinin e, mass ratio, urine 2022 023 [email or web address] 1 [facility], [address], [place], [address], 3 12:37:10 T3, free, serum or plasma 2022 023 [email or web address] 1 [facility], [address], [place], [address], 3 12:37:10 T4, free, serum 2022 023 [email or web address] 1 [facility], [address], [place], [address], 3 12:37:10 TSH, serum or plasma 2022 023 [email or web address] 1 [facility], [address], [place], [address], 3 12:37:10 Referral None recorded. Procedures None recorded. Surgeries None recorded. Imaging None recorded. Medication Orders Ozempic 0.25 mg or 0.5 mg (2 mg/1.5 mL) subcutaneou s pen injector 2022 023 [email or web address] [facility], [address] [place] [address], [address], 17:32:03 Ozempic 0.25 mg or 0.5 mg (2 mg/1.5 mL) subcutaneou s pen injector 2022 023 JEISON [facility], [address] [place] [address], [address], 3 10:09:06 Synthroid 50 mcg tablet 2022 023 JEISON [facility], [address] [place] [address], [address], 3 10:09:07 Synthroid 75 mcg tablet 2022 023 JEISON [facility], [address] [place] [address], [address], 3 10:09:05 Patient TargetsNo targets recorded. Patient InstructionsNo instructions recorded. Reason for Referral None Reported. Results Created Date Observation Date Name Description Value Unit Range Abnormal Flag Note LastModifiedBy Organization Detail LastModifiedTime 12/24/1912/25/2020 HEMOG LOBIN A1C hemoglobin A1C 6.3 %_of_ total _HGB <5.7 high Not Available [facility] [address], [place], [address], 12/25/2020 15:33:39 12/24/1912/25/2020 TSH+F REE T4 TSH 1.42 mIU/L 0.40-4 .50 normal Not Available [facility] [place] [address] [place], [address], 12/25/2020 15:33:38 12/24/19 21 12/25/2020 TSH+F REE T4 T4, free 1.3 NG/dL 0.8-1. 8 normal Not Available [facility] [address], [address], 12/25/2020 15:33:38 12/24/1912/25/2020 T3, FREE T3, free 3.4 pg/mL 2.3-4. 2 normal Not Available [facility] [address], [address], 12/25/2020 15:33:36 12/24/1912/25/2020 VITAM IN B12/F OLATE , SERUM PANEL vitamin B12 391 pg/mL 200-11 00 normal Pleas e Note: Altho ugh the refer ence range for vitam in B12 is 200-1 100 pg/mL , it has been repor jose manuel that betwe en 5 and 10% of patie nts with value s betwe en 200 and 400 pg/mL may exper ience neuro psych iatri c and hemat ologi c abnor malit ies due to occul t B12 defic iency ; less than 1% of patie nts with value s above 400 pg/mL will have sympt oms. Not Available [facility] [address] [address] [place], [address], 12/25/2020 15:33:35 12/24/1912/25/2020 VITAM IN B12/F OLATE , SERUM PANEL folate, serum 13.3 NG/mL normal Refer ence Range Low: <3.4 Borde rline : 3.4-5 .4 Alpa l: >5.4 Not Available [facility] [address] [address] [place], [address], 12/25/2020 15:33:35 12/24/19 21 12/25/2020 THYRO ID PEROX IDASE ANTIB ODIES thyroid peroxidase antibodies <1 IU/mL <9 normal Not Available [place] [address] [address] [place], [address], 12/25/2020 15:33:34 12/24/19 21 12/25/2020 ALBUM IN, RANDO M URINE W/CRE ATINI NE creatinine, random urine 103 mg/dL 20-275 normal Not Available [place] [address] [address] [place], [address], 12/25/2020 15:33:33 12/24/19 21 12/25/2020 ALBUM IN, RANDO M URINE W/CRE ATINI NE albumin, urine 1.2 mg/dL see note: normal Refer ence Range : Refer ence Range Not estab lishe d Not Available [address], [address], 12/25/2020 15:33:33 12/24/19 21 12/25/2020 ALBUM IN, RANDO M URINE W/CRE ATINI NE albumin/crea tinine ratio, random urine 12 mcg/m g_cre at <30 normal The ADA defin es abnor malit ies in album in excre tion as follo ws: Album inuri a Categ ory Resul t (mcg/ mg creat inine ) Alpa l to Mildl y incre ased <30 Moder ately incre ased 30-29 9 Sever maury incre ased > OR = 300 The ADA recom mends that at least two of three speci mens colle cted withi n a 3-6 month perio d be abnor mal befor e consi marshall g a patie nt to be withi n a diagn ostic categ ory. Not Available [address], [address], 12/25/2020 15:33:33 12/24/19 21 12/25/2020 COMPR EHENS KATHY METAB OLIC PANEL glucose 149 mg/dL 65-99 high Fasti ng refer ence inter ky For someo ne witho ut known diabe kelly, a gluco se value >125 mg/dL indic ates that they may have diabe kelly and this shoul d be confi rmed with a follo w-up test. Not Available [address] [address] [place], [address], 12/25/2020 15:33:32 12/24/1912/25/2020 COMPR EHENS KATHY METAB OLIC PANEL urea nitrogen (BUN) 19 mg/dL 7-25 normal Not Available [facility] [address] [address] [place], [address], 12/25/2020 15:33:32 12/24/1912/25/2020 COMPR EHENS KATHY METAB OLIC PANEL creatinine 0.50 mg/dL 0.50-0 .99 normal For patie nts >49 years of age, the refer ence limit for Creat inine is appro ximat maury 13% highe r for peopl e ident ified as Afric an-Am zoran n. Not Available [address] [address], [place], [address], 12/25/2020 15:33:32 12/24/1912/25/2020 COMPR EHENS KATHY METAB OLIC PANEL eGFR non-afr. georgian 105 mL/mi n/1.7 3m2 > or = 60 normal Not Available [facility] [address] [address] [place], [address], 12/25/2020 15:33:32 12/24/19 21 12/25/2020 COMPR EHENS KATHY METAB OLIC PANEL eGFR 122 mL/mi n/1.7 3m2 > or = 60 normal Not Available [facility] [address] [address] [place], [address], 12/25/2020 15:33:32 12/24/19 21 12/25/2020 COMPR EHENS KATHY METAB OLIC PANEL BUN/creatini ne ratio not applic able (calc ) 6-22 Not Available [address], [address], 12/25/2020 15:33:32 12/24/19 21 12/25/2020 COMPR EHENS KATHY METAB OLIC PANEL sodium 142 mmol/ L 135-14 6 normal Not Available [address], [address], 12/25/2020 15:33:32 12/24/19 21 12/25/2020 COMPR EHENS KATHY METAB OLIC PANEL potassium 3.6 mmol/ L 3.5-5. 3 normal Not Available [address], [address], 12/25/2020 15:33:32 12/24/19 21 12/25/2020 COMPR EHENS KATHY METAB OLIC PANEL chloride 105 mmol/ L 98-110 normal Not Available [address], [address], 12/25/2020 15:33:32 12/24/19 21 12/25/2020 COMPR EHENS KATHY METAB OLIC PANEL carbon dioxide 29 mmol/ L 20-32 normal Not Available [address], [address], 12/25/2020 15:33:32 12/24/19 21 12/25/2020 COMPR EHENS KATHY METAB OLIC PANEL calcium 9.2 mg/dL 8.6-10 .4 normal Not Available [address], [address], 12/25/2020 15:33:32 12/24/19 21 12/25/2020 COMPR EHENS KATHY METAB OLIC PANEL protein, total 6.2 g/dL 6.1-8. 1 normal Not Available [address], [address], 12/25/2020 15:33:32 12/24/19 21 12/25/2020 COMPR EHENS KATHY METAB OLIC PANEL albumin 3.9 g/dL 3.6-5. 1 normal Not Available [address], [address], 12/25/2020 15:33:32 12/24/19 21 12/25/2020 COMPR EHENS KATHY METAB OLIC PANEL globulin 2.3 g/dL_ (calc ) 1.9-3. 7 normal Not Available [address], [address], 12/25/2020 15:33:32 12/24/1912/25/2020 COMPR EHENS KATHY METAB OLIC PANEL albumin/glob ulin ratio 1.7 (calc ) 1.0-2. 5 normal Not Available [address], [address], 12/25/2020 15:33:32 12/24/19 21 12/25/2020 COMPR EHENS KATHY METAB OLIC PANEL bilirubin, total 0.5 mg/dL 0.2-1. 2 normal Not Available [address], [address], 12/25/2020 15:33:32 12/24/19 21 12/25/2020 COMPR EHENS KATHY METAB OLIC PANEL alkaline phosphatase 55 U/L 37-153 normal Not Available [address], [address], 12/25/2020 15:33:32 12/24/19 21 12/25/2020 COMPR EHENS KATHY METAB OLIC PANEL AST 11 U/L 10-35 normal Not Available [address], [address], 12/25/2020 15:33:32 12/24/19 21 12/25/2020 COMPR EHENS KATHY METAB OLIC PANEL ALT 17 U/L 6-29 normal Not Available [facility] [address] [place], [address], 12/25/2020 15:33:32 12/24/19 21 12/25/2020 LIPID PANEL , STAND OMERO cholesterol, total 105 mg/dL <200 normal Not Available [facility] [address] [place], [address], 12/25/2020 15:33:32 12/24/19 21 12/25/2020 LIPID PANEL , STAND OMERO HDL cholesterol 42 mg/dL > or = 50 low Not Available [facility] [address] [address] [place], [address], 12/25/2020 15:33:32 12/24/1912/25/2020 LIPID PANEL , STAND OMERO triglyceride s 99 mg/dL <150 normal Not Available [facility] [place] [address] [address] [place], [address], 12/25/2020 15:33:32 12/24/1912/25/2020 LIPID PANEL , STAND OMERO LDL-choleste rol 45 mg/dL _(birgit c) normal Refer ence range : <100 Sherwin able range <100 mg/dL for prima ry preve ntion ; <70 mg/dL for patie nts with CHD or diabe tic patie nts with > or = 2 CHD risk facto rs. LDL-C is now calcu lated using the Steff n-Hop kins calcu masoud n, which is a valid ated novel metho d clair hernandez accur acy than the Fried baylee equat ion in the estim ation of LDL-C . Steff liu SS et al. ANIYAH. 2013; 310(1 9): 2061- 2068 (http ://ed ucati on.Qu estDi chhayaos tics. com/f aq/FA Q164) Not Available [facility] [address] [place], [address], 12/25/2020 15:33:32 12/24/1912/25/2020 LIPID PANEL , STAND OMERO chol/HDLC ratio 2.5 (calc ) <5.0 normal Not Available [facility] [address] [place], [address], 12/25/2020 15:33:32 12/24/19 21 12/25/2020 LIPID PANEL , STAND OMERO non HDL cholesterol 63 mg/dL _(birgit c) <130 normal For patie nts with diabe kelly plus 1 major ASCVD risk facto r, treat ing to a non-H DL-C goal of <100 mg/dL (LDL- C of <70 mg/dL ) is consi lucille [place] c optio n. Not Available [facility] [address] [address], [place], [address], 12/25/2020 15:33:32 05/29/1905/29/2021 HEMOG LOBIN A1C hemoglobin A1C 7.4 %_of_ total _HGB <5.7 high For someo ne witho ut known diabe kelly, a hemog lobin A1c value of 6.5% or great er indic ates that they may have diabe kelly and this shoul d be confi rmed with a follo w-up test. For someo ne with known diabe kelly, a value <7% indic ates that their diabe kelly is well contr olled and a value great er than or equal to 7% indic ates subop timal contr ol. A1c targe ts shoul d be indiv idual ized based on durat ion of diabe kelly, age, comor bid condi tions , and other consi derat ions. Curre ntly, no conse nsus exist s regar ding use of hemog lobin A1c for diagn osis of diabe kelly for child amy. Not Available [facility] [address] [address], [place], [address], 05/29/2021 14:54:21 05/29/19 22 05/29/2021 TSH+F REE T4 TSH 3.20 mIU/L 0.40-4 .50 normal Not Available [address], [address], 05/29/2021 14:54:20 05/29/19 22 05/29/2021 TSH+F REE T4 T4, free 1.2 NG/dL 0.8-1. 8 normal Not Available [address], [address], 05/29/2021 14:54:20 05/29/19 22 05/29/2021 T3, FREE T3, free 3.3 pg/mL 2.3-4. 2 normal Not Available [address], [address], 05/29/2021 14:54:19 05/29/19 22 05/29/2021 VITAM IN B12/F OLATE , SERUM PANEL vitamin B12 >2000 pg/mL 200-11 00 high Not Available [address], [address], 05/29/2021 14:54:19 05/29/1905/29/2021 VITAM IN B12/F OLATE , SERUM PANEL folate, serum >24.0 NG/mL normal Refer ence Range Low: <3.4 Borde rline : 3.4-5 .4 Alpa l: >5.4 Not Available [address], [address], 05/29/2021 14:54:19 05/29/19 22 05/29/2021 ALBUM IN, RANDO M URINE W/CRE ATINI NE creatinine, random urine 92 mg/dL 20-275 normal Not Available [address], [address], 05/29/2021 14:54:18 05/29/19 22 05/29/2021 ALBUM IN, RANDO M URINE W/CRE ATINI NE albumin, urine 0.6 mg/dL see note: normal Refer ence Range : Refer ence Range Not estab lishe d Not Available [facility] [address], [address], 05/29/2021 14:54:18 05/29/19 22 05/29/2021 ALBUM IN, RANDO M URINE W/CRE ATINI NE albumin/crea tinine ratio, random urine 7 mcg/m g_cre at <30 normal The ADA defin es abnor malit ies in album in excre tion as follo ws: Album inuri a Categ ory Resul t (mcg/ mg creat inine ) Alpa l to Mildl y incre ased <30 Moder ately incre ased 30-29 9 Sever maury incre ased > OR = 300 The ADA recom mends that at least two of three speci mens colle cted withi n a 3-6 month perio d be abnor mal befor e consi marshall g a patie nt to be withi n a diagn ostic categ ory. Not Available [address], [address], 05/29/2021 14:54:18 05/29/19 22 05/29/2021 COMPR EHENS KATHY METAB OLIC PANEL glucose 127 mg/dL 65-99 high Fasti ng refer ence inter ky For someo ne witho ut known diabe kelly, a gluco se value >125 mg/dL indic ates that they may have diabe kelly and this shoul d be confi rmed with a follo w-up test. Not Available [facility] [address] [place], [address], 05/29/2021 14:54:17 05/29/19 22 05/29/2021 COMPR EHENS KATHY METAB OLIC PANEL urea nitrogen (BUN) 12 mg/dL 7-25 normal Not Available [facility] [address] [place], [address], 05/29/2021 14:54:17 05/29/19 22 05/29/2021 COMPR EHENS KATHY METAB OLIC PANEL creatinine 0.59 mg/dL 0.50-0 .99 normal For patie nts >49 years of age, the refer ence limit for Creat inine is appro ximat maury 13% highe r for peopl e ident ified as Afric an-Am zoran n. Not Available [address] [address] [place], [address], 05/29/2021 14:54:17 05/29/19 22 05/29/2021 COMPR EHENS KATHY METAB OLIC PANEL eGFR non-afr. georgian 100 mL/mi n/1.7 3m2 > or = 60 normal Not Available [address], [address], 05/29/2021 14:54:17 05/29/19 22 05/29/2021 COMPR EHENS KATHY METAB OLIC PANEL eGFR 115 mL/mi n/1.7 3m2 > or = 60 normal Not Available [address] [address] [place], [address], 05/29/2021 14:54:17 05/29/19 22 05/29/2021 COMPR EHENS KATHY METAB OLIC PANEL BUN/creatini ne ratio not applic able (calc ) 6-22 Not Available [address], [address], 05/29/2021 14:54:17 05/29/19 22 05/29/2021 COMPR EHENS KATHY METAB OLIC PANEL sodium 143 mmol/ L 135-14 6 normal Not Available [address], [address], 05/29/2021 14:54:17 05/29/19 22 05/29/2021 COMPR EHENS KATHY METAB OLIC PANEL potassium 3.8 mmol/ L 3.5-5. 3 normal Not Available [address], [address], 05/29/2021 14:54:17 05/29/19 22 05/29/2021 COMPR EHENS KATHY METAB OLIC PANEL chloride 103 mmol/ L 98-110 normal Not Available [address], [address], 05/29/2021 14:54:17 05/29/19 22 05/29/2021 COMPR EHENS KATHY METAB OLIC PANEL carbon dioxide 30 mmol/ L 20-32 normal Not Available [address], [address], 05/29/2021 14:54:17 05/29/19 22 05/29/2021 COMPR EHENS KATHY METAB OLIC PANEL calcium 8.6 mg/dL 8.6-10 .4 normal Not Available [address], [address], 05/29/2021 14:54:17 05/29/19 22 05/29/2021 COMPR EHENS KATHY METAB OLIC PANEL protein, total 6.4 g/dL 6.1-8. 1 normal Not Available [address], [address], 05/29/2021 14:54:17 05/29/19 22 05/29/2021 COMPR EHENS KATHY METAB OLIC PANEL albumin 3.9 g/dL 3.6-5. 1 normal Not Available [address], [address], 05/29/2021 14:54:17 05/29/19 22 05/29/2021 COMPR EHENS KATHY METAB OLIC PANEL globulin 2.5 g/dL_ (calc ) 1.9-3. 7 normal Not Available [address], [address], 05/29/2021 14:54:17 05/29/19 22 05/29/2021 COMPR EHENS KATHY METAB OLIC PANEL albumin/glob ulin ratio 1.6 (calc ) 1.0-2. 5 normal Not Available [address], [address], 05/29/2021 14:54:17 05/29/19 22 05/29/2021 COMPR EHENS KATHY METAB OLIC PANEL bilirubin, total 0.5 mg/dL 0.2-1. 2 normal Not Available [address], [address], 05/29/2021 14:54:17 05/29/19 22 05/29/2021 COMPR EHENS KATHY METAB OLIC PANEL alkaline phosphatase 50 U/L 37-153 normal Not Available [address], [address], 05/29/2021 14:54:17 05/29/19 22 05/29/2021 COMPR EHENS KATHY METAB OLIC PANEL AST 25 U/L 10-35 normal Not Available [address], [address], 05/29/2021 14:54:17 05/29/19 22 05/29/2021 COMPR EHENS KATHY METAB OLIC PANEL ALT 36 U/L 6-29 high Not Available [address], [address], 05/29/2021 14:54:17 05/29/19 22 05/29/2021 LIPID PANEL , STAND OMERO cholesterol, total 107 mg/dL <200 normal Not Available [address], [address], 05/29/2021 14:54:17 05/29/19 22 05/29/2021 LIPID PANEL , STAND OMERO HDL cholesterol 41 mg/dL > or = 50 low Not Available [address], [address], 05/29/2021 14:54:17 05/29/19 22 05/29/2021 LIPID PANEL , STAND OMERO triglyceride s 106 mg/dL <150 normal Not Available [facility] [address] [place], [address], 05/29/2021 14:54:17 05/29/19 22 05/29/2021 LIPID PANEL , STAND OMERO LDL-choleste rol 47 mg/dL _(birgit c) normal Refer ence range : <100 Sherwin able range <100 mg/dL for prima ry preve ntion ; <70 mg/dL for patie nts with CHD or diabe tic patie nts with > or = 2 CHD risk facto rs. LDL-C is now calcu lated using the Steff n-Hop kins calcu masoud n, which is a valid ated novel yoon hernandez accur acy than the Fried baylee equat ion in the estim ation of LDL-C . Steff liu SS et al. ANIYAH. 2013; 310(1 9): 2061- 2068 (http ://ed ucati on.Qu justiceHuddlebuy. com/f aq/FA Q164) Not Available [facility] [address] [address], [place], [address], 05/29/2021 14:54:17 05/29/19 22 05/29/2021 LIPID PANEL , STAND OMERO chol/HDLC ratio 2.6 (calc ) <5.0 normal Not Available [facility] [address] [address], [place], [address], 05/29/2021 14:54:17 05/29/19 22 05/29/2021 LIPID PANEL , STAND OMERO non HDL cholesterol 66 mg/dL _(birgit c) <130 normal For patie nts with diabe kelly plus 1 major ASCVD risk facto r, treat ing to a non-H DL-C goal of <100 mg/dL (LDL- C of <70 mg/dL ) is consi dered a thera peuti c optio n. Not Available [facility] [address] [place], [address], 05/29/2021 14:54:17 09/23/19 22 09/24/2021 HEMOG LOBIN A1C hemoglobin A1C 7.2 %_of_ total _HGB <5.7 high For someo ne witho ut known diabe kelly, a hemog lobin A1c value of 6.5% or great er indic ates that they may have diabe kelly and this shoul d be confi rmed with a follo w-up test. For someo ne with known diabe kelly, a value <7% indic ates that their diabe kelly is well contr olled and a value great er than or equal to 7% indic ates subop timal contr ol. A1c targe ts shoul d be indiv idual ized based on durat ion of diabe kelly, age, comor bid condi tions , and other consi derat ions. Curre ntly, no conse nsus exist s carmine fritz use of hemog lobin A1c for diagn osis of diabe kelly for child amy. Not Available [address], [address], 09/24/2021 16:16:19 09/23/19 22 09/24/2021 TSH+F REE T4 TSH 2.91 mIU/L 0.40-4 .50 normal Not Available [address], [address], 09/24/2021 16:16:19 09/23/19 22 09/24/2021 TSH+F REE T4 T4, free 1.2 NG/dL 0.8-1. 8 normal Not Available [facility] [address], [address], 09/24/2021 16:16:19 09/23/19 22 09/24/2021 T3, FREE T3, free 3.2 pg/mL 2.3-4. 2 normal Not Available [facility] [address] [place], [address], 09/24/2021 16:16:18 09/23/19 22 09/24/2021 THYRO ID PEROX IDASE ANTIB ODIES thyroid peroxidase antibodies <1 IU/mL <9 normal Not Available [address] [address] [place], [address], 09/24/2021 16:16:18 09/23/19 22 09/24/2021 ALBUM IN, RANDO M URINE W/CRE ATINI NE creatinine, random urine 76 mg/dL 20-275 normal Not Available [address] [address] [place], [address], 09/24/2021 16:16:17 09/23/19 22 09/24/2021 ALBUM IN, RANDO M URINE W/CRE ATINI NE albumin, urine 0.6 mg/dL see note: normal Refer ence Range : Refer ence Range Not estab lishe d Not Available [address] [address] [place], [address], 09/24/2021 16:16:17 09/23/19 22 09/24/2021 ALBUM IN, RANDO M URINE W/CRE ATINI NE albumin/crea tinine ratio, random urine 8 mcg/m g_cre at <30 normal The ADA defin es abnor malit ies in album in excre tion as follo ws: Album inuri a Categ ory Resul t (mcg/ mg creat inine ) Alpa l to Mildl y incre ased <30 Moder ately incre ased 30-29 9 Sever maury incre ased > OR = 300 The ADA recom mends that at least two of three speci mens colle cted withi n a 3-6 month perio d be abnor mal befor e consi marshall g a patie nt to be withi n a diagn ostic categ ory. Not Available [address], [address], 09/24/2021 16:16:17 09/23/19 22 09/24/2021 COMPR EHENS KATHY METAB OLIC PANEL glucose 146 mg/dL 65-99 high Fasti ng refer ence inter ky For someo ne witho ut known diabe kelly, a gluco se value >125 mg/dL indic ates that they may have diabe kelly and this shoul d be confi rmed with a follo w-up test. Not Available [address] [address] [place], [address], 09/24/2021 16:16:17 09/23/19 22 09/24/2021 COMPR EHENS KATHY METAB OLIC PANEL urea nitrogen (BUN) 16 mg/dL 7-25 normal Not Available [facility] [address] [address] [place], [address], 09/24/2021 16:16:17 09/23/19 22 09/24/2021 COMPR EHENS KATHY METAB OLIC PANEL creatinine 0.55 mg/dL 0.50-1 .05 normal Not Available [address] [address] [place], [address], 09/24/2021 16:16:17 09/23/19 22 09/24/2021 COMPR EHENS KATHY METAB OLIC PANEL eGFR 104 mL/mi n/1.7 3m2 > or = 60 normal The eGFR is based on the CKD-E PI 2020 rafiq dykes. To calcu late the new eGFR from a previ ous Creat inine or Cysta tin C resul t, go to https ://haris mccurdy.tai regalado.o asad/larisa mcdaniels s/ kdoqi /gfr% 5Fcal culat or Not Available [address] [address] [place], [address], 09/24/2021 16:16:17 09/23/19 22 09/24/2021 COMPR EHENS KATHY METAB OLIC PANEL BUN/creatini ne ratio not applic able (calc ) 6-22 Not Available [address] [address] [place], [address], 09/24/2021 16:16:17 09/23/19 22 09/24/2021 COMPR EHENS KATHY METAB OLIC PANEL sodium 141 mmol/ L 135-14 6 normal Not Available [address] [place], [address], 09/24/2021 16:16:17 09/23/19 22 09/24/2021 COMPR EHENS KATHY METAB OLIC PANEL potassium 3.8 mmol/ L 3.5-5. 3 normal Not Available [address], [address], 09/24/2021 16:16:17 09/23/19 22 09/24/2021 COMPR EHENS KATHY METAB OLIC PANEL chloride 102 mmol/ L 98-110 normal Not Available [address], [address], 09/24/2021 16:16:17 09/23/19 22 09/24/2021 COMPR EHENS KATHY METAB OLIC PANEL carbon dioxide 31 mmol/ L 20-32 normal Not Available [address], [address], 09/24/2021 16:16:17 09/23/19 22 09/24/2021 COMPR EHENS KATHY METAB OLIC PANEL calcium 8.7 mg/dL 8.6-10 .4 normal Not Available [address], [address], 09/24/2021 16:16:17 09/23/19 22 09/24/2021 COMPR EHENS KATHY METAB OLIC PANEL protein, total 6.2 g/dL 6.1-8. 1 normal Not Available [address], [address], 09/24/2021 16:16:17 09/23/19 22 09/24/2021 COMPR EHENS KATHY METAB OLIC PANEL albumin 4.0 g/dL 3.6-5. 1 normal Not Available [address], [address], 09/24/2021 16:16:17 09/23/19 22 09/24/2021 COMPR EHENS KATHY METAB OLIC PANEL globulin 2.2 g/dL_ (calc ) 1.9-3. 7 normal Not Available [address], [address], 09/24/2021 16:16:17 09/23/19 22 09/24/2021 COMPR EHENS KATHY METAB OLIC PANEL albumin/glob ulin ratio 1.8 (calc ) 1.0-2. 5 normal Not Available [address], [address], 09/24/2021 16:16:17 09/23/19 22 09/24/2021 COMPR EHENS KATHY METAB OLIC PANEL bilirubin, total 0.5 mg/dL 0.2-1. 2 normal Not Available [address], [address], 09/24/2021 16:16:17 09/23/19 22 09/24/2021 COMPR EHENS KATHY METAB OLIC PANEL alkaline phosphatase 60 U/L 37-153 normal Not Available [address], [address], 09/24/2021 16:16:17 09/23/19 22 09/24/2021 COMPR EHENS KATHY METAB OLIC PANEL AST 20 U/L 10-35 normal Not Available [address], [address], 09/24/2021 16:16:17 09/23/19 22 09/24/2021 COMPR EHENS KATHY METAB OLIC PANEL ALT 32 U/L 6-29 high Not Available [address], [address], 09/24/2021 16:16:17 09/23/19 22 09/24/2021 LIPID PANEL , STAND OMERO cholesterol, total 114 mg/dL <200 normal Not Available [id number] [place], [address], 09/24/2021 16:16:16 09/23/19 22 09/24/2021 LIPID PANEL , STAND OMERO HDL cholesterol 37 mg/dL > or = 50 low Not Available [facility] [address] [place], [address], 09/24/2021 16:16:16 09/23/19 22 09/24/2021 LIPID PANEL , STAND OMERO triglyceride s 191 mg/dL <150 high Not Available [facility] [address] [place], [address], 09/24/2021 16:16:16 09/23/19 22 09/24/2021 LIPID PANEL , STAND OMERO LDL-choleste rol 51 mg/dL _(birgit c) normal Refer ence range : <100 Sherwin able range <100 mg/dL for prima ry preve ntion ; <70 mg/dL for patie nts with CHD or diabe tic patie nts with > or = 2 CHD risk facto rs. LDL-C is now calcu lated using the Steff liu-Hop zachary davisu masoud n, which is a valid ated novel yoon grimm acy than the Fried baylee equat ion in the estim ation of LDL-C . Steff liu SS et al. ANIYAH. 2013; 310(1 9): 2061- 2068 (http ://ed ucati on.Tejal pedros. com/f aq/FA Q164) Not Available [facility] [address] [address], [place], [address], 09/24/2021 16:16:16 09/23/19 22 09/24/2021 LIPID PANEL , STAND OMERO chol/HDLC ratio 3.1 (calc ) <5.0 normal Not Available [facility] [address] [place], [address], 09/24/2021 16:16:16 09/23/19 22 09/24/2021 LIPID PANEL , STAND OMERO non HDL cholesterol 77 mg/dL _(birgit c) <130 normal For patie nts with diabe kelly plus 1 major ASCVD risk facto r, treat ing to a non-H DL-C goal of <100 mg/dL (LDL- C of <70 mg/dL ) is consi dered a thera peuti c optio n. Not Available [facility] [place] [address] [address] [place], [address], 09/24/2021 16:16:16 02/03/20 22 02/04/2022 HEMOG LOBIN A1C hemoglobin A1C 8.5 %_of_ total _HGB <5.7 high For someo ne witho ut known diabe kelly, a hemog lobin A1c value of 6.5% or great er indic ates that they may have diabe kelly and this shoul d be confi rmed with a follo w-up test. For someo ne with known diabe kelly, a value <7% indic ates that their diabe kelly is well contr olled and a value great er than or equal to 7% indic ates subop timal contr ol. A1c targe ts shoul d be indiv idual ized based on durat ion of diabe kelly, age, comor bid condi tions , and other consi derat ions. Curre ntly, no conse nsus exist s carmine fritz use of hemog lobin A1c for diagn osis of diabe kelly for child amy. Not Available [facility] [place] [address] [address] [place], [address], 02/04/2022 14:22:17 02/03/20 22 02/04/2022 HEMOG LOBIN A1C copy(ies) sent to: [facility] [address] [facility] [place] [address] Not Available [facility] [address] [place], [address], 02/04/2022 14:22:17 02/03/20 22 02/04/2022 TSH+F REE T4 TSH 2.84 mIU/L 0.40-4 .50 normal Not Available [place] [address] [address] [place], [address], 02/04/2022 14:22:16 02/03/20 22 02/04/2022 TSH+F REE T4 T4, free 1.1 NG/dL 0.8-1. 8 normal Not Available [address], [address], 02/04/2022 14:22:16 02/03/20 22 02/04/2022 TSH+F REE T4 copy(ies) sent to: [facility] [place] [facility] [place] [facility] [address] [place] [address] Not Available [address], [address], 02/04/2022 14:22:16 02/03/20 22 02/04/2022 T3, FREE T3, free 2.3 pg/mL 2.3-4. 2 normal Not Available [address], [address], 02/04/2022 14:22:16 02/03/20 22 02/04/2022 T3, FREE copy(ies) sent to: [facility] [place] [facility] [address] [place] [address] Not Available [address], [address], 02/04/2022 14:22:16 02/03/20 22 02/04/2022 ALBUM IN, RANDO M URINE W/CRE ATINI NE creatinine, random urine 233 mg/dL 20-275 normal Not Available [place] [address] [address] [place], [address], 02/04/2022 14:22:15 11/26/20 22 02/04/2022 ALBUM IN, RANDO M URINE W/CRE ATINI NE albumin, urine 2.0 mg/dL see note: normal Refer ence Range : Refer ence Range Not estab lishe d Not Available [address] [address] [place], [address], 02/04/2022 14:22:15 02/03/20 22 02/04/2022 ALBUM IN, RANDO M URINE W/CRE ATINI NE albumin/crea tinine ratio, random urine 9 mcg/m g_cre at <30 normal The ADA defin es abnor malit ies in album in excre tion as follo ws: Album inuri a Categ ory Resul t (mcg/ mg creat inine ) Alpa l to Mildl y incre ased <30 Moder ately incre ased 30-29 9 Sever maury incre ased > OR = 300 The ADA recom mends that at least two of three speci mens colle cted withi n a 3-6 month perio d be abnor mal befor e consi marshall g a patie nt to be withi n a diagn ostic categ ory. Not Available [address], [address], 02/04/2022 14:22:15 02/03/20 22 02/04/2022 ALBUM IN, RANDO M URINE W/CRE ATINI NE copy(ies) sent to: [facility] [place] [facility] [place] [facility] [address] [place] [address] Not Available [place] [address] [place], [address], 02/04/2022 14:22:15 02/03/20 22 02/04/2022 COMPR EHENS KATHY METAB OLIC PANEL albumin/glob ulin ratio 1.7 (calc ) 1.0-2. 5 normal Not Available [facility] [place] [address] [address] [place], [address], 02/04/2022 14:22:14 02/03/20 22 02/04/2022 COMPR EHENS KATHY METAB OLIC PANEL bilirubin, total 0.5 mg/dL 0.2-1. 2 normal Not Available [address] [address] [place], [address], 02/04/2022 14:22:14 02/03/20 22 02/04/2022 COMPR EHENS KATHY METAB OLIC PANEL alkaline phosphatase 52 U/L 37-153 normal Not Available [address] [address] [place], [address], 02/04/2022 14:22:14 02/03/20 22 02/04/2022 COMPR EHENS KATHY METAB OLIC PANEL AST 18 U/L 10-35 normal Not Available [address] [address] [place], [address], 02/04/2022 14:22:14 02/03/20 22 02/04/2022 COMPR EHENS KATHY METAB OLIC PANEL ALT 36 U/L 6-29 high Not Available [address] [address] [place], [address], 02/04/2022 14:22:14 02/03/20 22 02/04/2022 COMPR EHENS KATHY METAB OLIC PANEL copy(ies) sent to: [facility] [place] [facility] [place] [facility] [address] [facility] [place] [address] Not Available [place] [address] [place], [address], 02/04/2022 14:22:14 02/03/20 22 02/04/2022 COMPR EHENS KATHY METAB OLIC PANEL glucose 112 mg/dL 65-99 high Fasti ng refer ence inter ky For someo ne witho ut known diabe kelly, a gluco se value betwe en 100 and 125 mg/dL is consi stent with predi abete s and shoul d be confi rmed with a follo w-up test. Not Available [facility] [place] [address] [address] [place], [address], 02/04/2022 14:22:14 02/03/20 22 02/04/2022 COMPR EHENS KATHY METAB OLIC PANEL urea nitrogen (BUN) 19 mg/dL 7-25 normal Not Available [facility] [place] [address] [address] [place], [address], 02/04/2022 14:22:14 02/03/20 22 02/04/2022 COMPR EHENS KATHY METAB OLIC PANEL creatinine 0.62 mg/dL 0.50-1 .05 normal Not Available [address] [address] [place], [address], 02/04/2022 14:22:14 02/03/20 22 02/04/2022 COMPR EHENS KATHY METAB OLIC PANEL eGFR 101 mL/mi n/1.7 3m2 > or = 60 normal The eGFR is based on the CKD-E PI 2020 equat ion. To calcu late the new eGFR from a previ ous Creat inine or Cysta twan C resul t, go to https ://haris regalado.julita kamara/larisa mcdaniels s/ kdoqi /gfr% 5Fcal culat or Not Available [address] [address] [place], [address], 02/04/2022 14:22:14 02/03/20 22 02/04/2022 COMPR EHENS KATHY METAB OLIC PANEL BUN/creatini ne ratio not applic able (calc ) 6-22 Not Available [facility] [place] [address] [address] [place], [address], 02/04/2022 14:22:14 02/03/20 22 02/04/2022 COMPR EHENS KATHY METAB OLIC PANEL sodium 141 mmol/ L 135-14 6 normal Not Available [address] [address] [place], [address], 02/04/2022 14:22:14 02/03/20 22 02/04/2022 COMPR EHENS KATHY METAB OLIC PANEL potassium 3.2 mmol/ L 3.5-5. 3 low Not Available [address], [address], 02/04/2022 14:22:14 02/03/20 22 02/04/2022 COMPR EHENS KATHY METAB OLIC PANEL chloride 100 mmol/ L 98-110 normal Not Available [address], [address], 02/04/2022 14:22:14 02/03/20 22 02/04/2022 COMPR EHENS KATHY METAB OLIC PANEL carbon dioxide 33 mmol/ L 20-32 high Not Available [address], [address], 02/04/2022 14:22:14 02/03/20 22 02/04/2022 COMPR EHENS KATHY METAB OLIC PANEL calcium 9.1 mg/dL 8.6-10 .4 normal Not Available [address], [address], 02/04/2022 14:22:14 02/03/20 22 02/04/2022 COMPR EHENS KATHY METAB OLIC PANEL protein, total 6.2 g/dL 6.1-8. 1 normal Not Available [address], [address], 02/04/2022 14:22:14 02/03/20 22 02/04/2022 COMPR EHENS KATHY METAB OLIC PANEL albumin 3.9 g/dL 3.6-5. 1 normal Not Available [address], [address], 02/04/2022 14:22:14 02/03/20 22 02/04/2022 COMPR EHENS KATHY METAB OLIC PANEL globulin 2.3 g/dL_ (calc ) 1.9-3. 7 normal Not Available [address] [address] [place], [address], 02/04/2022 14:22:14 02/03/20 22 02/04/2022 LIPID PANEL , STAND OMERO cholesterol, total 120 mg/dL <200 normal Not Available [facility] [address] [address] [place], [address], 02/04/2022 14:22:14 02/03/20 22 02/04/2022 LIPID PANEL , STAND OMERO HDL cholesterol 38 mg/dL > or = 50 low Not Available [facility] [place] [address] [address] [place], [address], 02/04/2022 14:22:14 02/03/20 22 02/04/2022 LIPID PANEL , STAND OMERO triglyceride s 188 mg/dL <150 high Not Available [place] [address] [address] [place], [address], 02/04/2022 14:22:14 02/03/20 22 02/04/2022 LIPID PANEL , STAND OMERO LDL-choleste rol 56 mg/dL _(birgit c) normal Refer ence range : <100 Sherwin able range <100 mg/dL for prima ry preve ntion ; <70 mg/dL for patie nts with CHD or diabe tic patie nts with > or = 2 CHD risk facto rs. LDL-C is now calcu lated using the Steff n-Hop kins calcu masoud n, which is a valid ated novel metho d provi ding jordan r accur acy than the Fried baylee equat ion in the estim ation of LDL-C . Steff liu SS et al. ANIYAH. 2013; 310(1 9): 2061- 2068 (http ://ed ucati on.Qu Anil shaverKuonas. com/f aq/FA Q164) Not Available [facility] [address] [address] [place], [address], 02/04/2022 14:22:14 02/03/20 22 02/04/2022 LIPID PANEL , STAND OMERO chol/HDLC ratio 3.2 (calc ) <5.0 normal Not Available [address], [address], 02/04/2022 14:22:14 02/03/20 22 02/04/2022 LIPID PANEL , STAND OMERO non HDL cholesterol 82 mg/dL _(birgit c) <130 normal For patie nts with diabe kelly plus 1 major ASCVD risk facto r, treat ing to a non-H DL-C goal of <100 mg/dL (LDL- C of <70 mg/dL ) is consi [place] c optio n. Not Available [address] [place], [address], 02/04/2022 14:22:14 02/03/20 22 02/04/2022 LIPID PANEL , STAND OMERO copy(ies) sent to: [facility] [place] [facility] [place] [facility] [address] [place] [address] Not Available [address], [address], 02/04/2022 14:22:14 02/26/20 22 02/27/2022 IMMUN OGLOB ULIN M immunoglobul in M 93 mg/dL 50-300 normal Not Available [facility] [address] [place], [address], 02/27/2022 12:55:39 02/26/20 22 02/27/2022 IMMUN OGLOB ULIN G immunoglobul in g 717 mg/dL 600-15 40 normal Not Available [address], [address], 02/27/2022 12:55:39 02/26/20 22 02/27/2022 IMMUN OGLOB ULIN A immunoglobul in A 226 mg/dL 70-320 normal Not Available [facility] [address] [address] [place], [address], 02/27/2022 12:55:38 03/18/1903/27/2022 CORTI KRISHNA, A.M. cortisol, A.M. 1.2 mcg/d L low Refer ence Range 8 a.m. (7-9 a.m.) Speci men: 4.0-2 2.0 Not Available [facility] [place] [address] [place], [address], 03/27/2022 13:15:42 03/18/1903/27/2022 DEXAM ETHAS ONE dexamethason e 416 NG/dL Refer ence Range s for Dexam ethas one: Basel ine: Less than 20 ng/dL 1 mg dexam ethas one overn ight: 180-5 50 ng/dL (8:00 -10:0 0 AM) This test was devjack pablo and its jermaine tical perfo rmanc e shea cteri stics have been deter mined by [facility] [employer] [employer] [employer] tranjulita . It has not been clear ed or appro tanner by FDA. This assay has been valid ated pursu ant to the CLIA regul ation s and is used for clini birgit purpo ses. Not Available [facility] [place] [address] [address] [place], [address], 03/27/2022 13:15:41 06/18/19 23 06/18/2022 LIPID PANEL , STAND OMERO cholesterol, total 103 mg/dL <200 normal Not Available [facility] [place] [address] [place], [address], 06/18/2022 16:40:55 06/18/19 23 06/18/2022 LIPID PANEL , STAND OMERO HDL cholesterol 39 mg/dL > or = 50 low Not Available [facility] [place] [address] [address] [place], [address], 06/18/2022 16:40:55 06/18/19 23 06/18/2022 LIPID PANEL , STAND OMERO triglyceride s 176 mg/dL <150 high Not Available [facility] [address] [place] [address], [address], 06/18/2022 16:40:55 06/18/19 23 06/18/2022 LIPID PANEL , STAND OMERO LDL-choleste rol 39 mg/dL _(birgit c) normal Refer ence range : <100 Sherwin able range <100 mg/dL for prima ry preve ntion ; <70 mg/dL for patie nts with CHD or diabe tic patie nts with > or = 2 CHD risk facto rs. LDL-C is now calcu lated using the Steff n-Hop kins calcu masoud n, which is a valid ated novel metho d provi ding jordan r accur acy than the Fried baylee equat ion in the estim ation of LDL-C . Steff liu SS et al. ANIYAH. 2013; 310(1 9): 2061- 2068 (http ://ed ucati on.Qu justiceHuddlebuy. com/f aq/FA Q164) Not Available [facility] [address] [place], [address], 06/18/2022 16:40:55 06/18/19 23 06/18/2022 LIPID PANEL , STAND OMERO chol/HDLC ratio 2.6 (calc ) <5.0 normal Not Available [facility] [address] [place], [address], 06/18/2022 16:40:55 06/18/19 23 06/18/2022 LIPID PANEL , STAND OMERO non HDL cholesterol 64 mg/dL _(birgit c) <130 normal For patie nts with diabe kelly plus 1 major ASCVD risk facto r, treat ing to a non-H DL-C goal of <100 mg/dL (LDL- C of <70 mg/dL ) is consi dered a thera peuti c optio n. Not Available [facility] [address] [place], [address], 06/18/2022 16:40:55 06/18/19 23 06/18/2022 LIPID PANEL , STAND OMERO copy(ies) sent to: [facility] [address] [place] [address] Not Available [address], [address], 06/18/2022 16:40:55 06/18/19 23 06/18/2022 COMPR EHENS KATHY METAB OLIC PANEL glucose 149 mg/dL 65-99 high Fasti ng refer ence inter ky For someo ne witho ut known diabe kelly, a gluco se value >125 mg/dL indic ates that they may have diabe kelly and this shoul d be confi rmed with a follo w-up test. Not Available [address], [address], 06/18/2022 16:40:55 06/18/19 23 06/18/2022 COMPR EHENS KATHY METAB OLIC PANEL urea nitrogen (BUN) 15 mg/dL 7-25 normal Not Available [address], [address], 06/18/2022 16:40:55 06/18/19 23 06/18/2022 COMPR EHENS KATHY METAB OLIC PANEL creatinine 0.67 mg/dL 0.50-1 .05 normal Not Available [address], [address], 06/18/2022 16:40:55 06/18/19 23 06/18/2022 COMPR EHENS KATHY METAB OLIC PANEL eGFR 99 mL/mi n/1.7 3m2 > or = 60 normal The eGFR is based on the CKD-E PI 2020 fabricioat jania. To calcu late the new eGFR from a previ ous Creat inine or Cysta tin C resul t, go to https ://haris regalado.o rg/pr ofess ional s/ kdoqi /gfr% 5Fcal culat or Not Available [place] [address] [place], [address], 06/18/2022 16:40:55 06/18/19 23 06/18/2022 COMPR EHENS KATHY METAB OLIC PANEL BUN/creatini ne ratio NOT APPLIC ABLE (calc ) 6-22 Not Available [address], [address], 06/18/2022 16:40:55 06/18/19 23 06/18/2022 COMPR EHENS KATHY METAB OLIC PANEL sodium 142 mmol/ L 135-14 6 normal Not Available [address], [address], 06/18/2022 16:40:55 06/18/19 23 06/18/2022 COMPR EHENS KATHY METAB OLIC PANEL potassium 3.6 mmol/ L 3.5-5. 3 normal Not Available [address], [address], 06/18/2022 16:40:55 06/18/19 23 06/18/2022 COMPR EHENS KATHY METAB OLIC PANEL chloride 104 mmol/ L 98-110 normal Not Available [address], [address], 06/18/2022 16:40:55 06/18/19 23 06/18/2022 COMPR EHENS KATHY METAB OLIC PANEL carbon dioxide 30 mmol/ L 20-32 normal Not Available [address], [address], 06/18/2022 16:40:55 06/18/19 23 06/18/2022 COMPR EHENS KATHY METAB OLIC PANEL calcium 8.6 mg/dL 8.6-10 .4 normal Not Available [address], [address], 06/18/2022 16:40:55 06/18/19 23 06/18/2022 COMPR EHENS KATHY METAB OLIC PANEL protein, total 6.0 g/dL 6.1-8. 1 low Not Available [address], [address], 06/18/2022 16:40:55 06/18/19 23 06/18/2022 COMPR EHENS KATHY METAB OLIC PANEL albumin 3.9 g/dL 3.6-5. 1 normal Not Available [address], [address], 06/18/2022 16:40:55 06/18/19 23 06/18/2022 COMPR EHENS KATHY METAB OLIC PANEL globulin 2.1 g/dL_ (calc ) 1.9-3. 7 normal Not Available [address], [address], 06/18/2022 16:40:55 06/18/19 23 06/18/2022 COMPR EHENS KATHY METAB OLIC PANEL albumin/glob ulin ratio 1.9 (calc ) 1.0-2. 5 normal Not Available [address], [address], 06/18/2022 16:40:55 06/18/19 23 06/18/2022 COMPR EHENS KATHY METAB OLIC PANEL bilirubin, total 0.6 mg/dL 0.2-1. 2 normal Not Available [address], [address], 06/18/2022 16:40:55 06/18/19 23 06/18/2022 COMPR EHENS KATHY METAB OLIC PANEL alkaline phosphatase 57 U/L 37-153 normal Not Available [facility] [employer] [address] [address] [place], [address], 06/18/2022 16:40:55 06/18/19 23 06/18/2022 COMPR EHENS KATHY METAB OLIC PANEL AST 17 U/L 10-35 normal Not Available [address], [address], 06/18/2022 16:40:55 06/18/19 23 06/18/2022 COMPR EHENS KATHY METAB OLIC PANEL ALT 22 U/L 6-29 normal Not Available [address], [address], 06/18/2022 16:40:55 06/18/19 23 06/18/2022 COMPR EHENS KATHY METAB OLIC PANEL copy(ies) sent to: [facility] [address] [place] [address] Not Available [address], [address], 06/18/2022 16:40:55 06/18/19 23 06/18/2022 ALBUM IN, RANDO M URINE W/CRE ATINI NE creatinine, random urine 175 mg/dL 20-275 normal Not Available [address], [address], 06/18/2022 16:40:56 06/18/19 23 06/18/2022 ALBUM IN, RANDO M URINE W/CRE ATINI NE albumin, urine 0.7 mg/dL see note: normal Refer ence Range : Refer ence Range Not estab lishe d Not Available [address], [address], 06/18/2022 16:40:56 06/18/19 23 06/18/2022 ALBUM IN, RANDO M URINE W/CRE ATINI NE albumin/crea tinine ratio, random urine 4 mcg/m g_cre at <30 normal The ADA defin es abnor malit ies in album in excre tion as follo ws: Album inuri a Categ ory Resul t (mcg/ mg creat inine ) Alpa l to Mildl y incre ased <30 Moder ately incre ased 30-29 9 Sever maury incre ased > OR = 300 The ADA recom mends that at least two of three speci mens colle cted withi n a 3-6 month perio d be abnor mal befor e consi marshall g a patie nt to be withi n a diagn ostic categ ory. Not Available [address], [address], 06/18/2022 16:40:56 06/18/19 23 06/18/2022 ALBUM IN, RANDO M URINE W/CRE ATINI NE copy(ies) sent to: [facility] [address] [place] [address] Not Available [address], [address], 06/18/2022 16:40:56 06/18/19 23 06/18/2022 THYRO ID PEROX IDASE ANTIB ODIES thyroid peroxidase antibodies <1 IU/mL <9 normal Not Available [address], [address], 06/18/2022 16:40:57 06/18/19 23 06/18/2022 THYRO ID PEROX IDASE ANTIB ODIES copy(ies) sent to: [facility] [address] [place] [address] Not Available [address], [address], 06/18/2022 16:40:57 06/18/19 23 06/18/2022 T3, FREE T3, free 3.2 pg/mL 2.3-4. 2 normal Not Available [address], [address], 06/18/2022 16:40:57 06/18/19 23 06/18/2022 T3, FREE copy(ies) sent to: [facility] [address] [facility] [address] Not Available [address], [address], 06/18/2022 16:40:57 06/18/19 23 06/18/2022 TSH+F REE T4 TSH 2.99 mIU/L 0.40-4 .50 normal Not Available [address], [address], 06/18/2022 16:40:58 06/18/19 23 06/18/2022 TSH+F REE T4 T4, free 1.2 NG/dL 0.8-1. 8 normal Not Available [address], [address], 06/18/2022 16:40:58 06/18/19 23 06/18/2022 TSH+F REE T4 copy(ies) sent to: [facility] [address] [facility] [place] [address] Not Available [address], [address], 06/18/2022 16:40:58 06/18/1906/18/2022 HEMOG LOBIN A1C hemoglobin A1C 6.9 %_of_ total _HGB <5.7 high For someo ne witho ut known diabe kelly, a hemog lobin A1c value of 6.5% or great er indic ates that they may have diabe kelly and this shoul d be confi rmed with a follo w-up test. For someo ne with known diabe kelly, a value <7% indic ates that their diabe kelly is well contr olled and a value great er than or equal to 7% indic ates subop timal contr ol. A1c targe ts shoul d be indiv idual ized based on durat ion of diabe kelly, age, comor bid condi tions , and other consi derat ions. Curre ntly, no conse nsus exist s carmine fritz use of hemog lobin A1c for diagn osis of diabe kelly for child amy. Not Available [address] [address] [place], [address], 06/18/2022 16:40:58 06/18/19 23 06/18/2022 HEMOG LOBIN A1C copy(ies) sent to: [facility] [id number] [place] [id number] Not Available [facility] [address] [address] [place], [address], 06/18/2022 16:40:58 08/27/19 23 08/28/2022 LIPID PANEL , STAND OMERO cholesterol, total 103 mg/dL <200 normal Not Available [address] [address] [place], [address], 08/28/2022 09:46:38 08/27/19 23 08/28/2022 LIPID PANEL , STAND [place]ERO HDL cholesterol 35 mg/dL > or = 50 low Not Available [address], [address], 08/28/2022 09:46:38 08/27/19 23 08/28/2022 LIPID PANEL , ST[facility] [place] triglyceride s 293 mg/dL <150 high If a non-f astin g speci men was colle cted, consi taryn repea t trigl yceri de testi ng on a fasti ng speci men if clini zay indic ated. Josse obando et al. J. of Clin. Lipid ol. 2015; 9:129 -169. Not Available [address] [address] [place], [address], 08/28/2022 09:46:38 08/27/19 23 08/28/2022 LIPID PANEL , [place] [place] LDL-choleste rol 37 mg/dL _(birgit c) normal Refer ence range : <100 Sherwin able range <100 mg/dL for prima ry preve ntion ; <70 mg/dL for patie nts with CHD or diabe tic patie nts with > or = 2 CHD risk facto rs. LDL-C is now calcu lated using the Steff n-Hop kins calcu mag[place]ilou n, which is a valid ated novel metho d provi ding jordan r accur acy than the Fried baylee equat ion in the estim ation of LDL-C . Steff liu SS et al. ANIYAH. 2013; 310(1 9): 2061- 206 (http ://ed ucati on.Qu estDi [employer]. com/f aq/FA Q164) Not Available [facility] [address] [address] [place], [address], 08/28/2022 09:46:38 08/27/19 23 08/28/2022 LIPID PANEL , STAND OMERO chol/HDLC ratio 2.9 (calc ) <5.0 normal Not Available [facility] [address] [address] [place], [address], 08/28/2022 09:46:38 08/27/19 23 08/28/2022 LIPID PANEL , [place] [place] non HDL cholesterol 68 mg/dL _(birgit c) <130 normal For patie nts with diabe kelly plus 1 major ASCVD risk facto r, treat ing to a non-H DL-C goal of <100 mg/dL (LDL- C of <70 mg/dL ) is consi dered a thera peuti c optio n. Not Available [facility] [address] [address] [place], [address], 08/28/2022 09:46:38 08/27/1908/28/2022 COMPR EHENS KATHY METAB OLIC PANEL glucose 159 mg/dL 65-99 high Fasti ng refer ence inter ky For someo ne witho ut known diabe kelly, a gluco se value >125 mg/dL indic ates that they may have diabe kelly and this shoul d be confi rmed with a follo w-up test. Not Available [address] [address] [place], [address], 08/28/2022 09:46:39 08/27/19 23 08/28/2022 COMPR EHENS KATHY METAB OLIC PANEL urea nitrogen (BUN) 18 mg/dL 7-25 normal Not Available [address], [address], 08/28/2022 09:46:39 08/27/19 23 08/28/2022 COMPR EHENS KATHY METAB OLIC PANEL creatinine 0.56 mg/dL 0.50-1 .05 normal Not Available [address], [address], 08/28/2022 09:46:39 08/27/19 23 08/28/2022 COMPR EHENS KATHY METAB OLIC PANEL eGFR 103 mL/mi n/1.7 3m2 > or = 60 normal The eGFR is based on the CKD-E PI 2020 equat ion. To calcu late the new eGFR from a previ ous Creat inine or Cysta tin C resul t, go to [email or web address] :[email or web address] 5Fcal culat or Not Available [address] [address] [place], [address], 08/28/2022 09:46:39 08/27/19 23 08/28/2022 COMPR EHENS KATHY METAB OLIC PANEL BUN/creatini ne ratio NOT APPLIC ABLE (calc ) 6-22 Not Available [address] [address] [place], [address], 08/28/2022 09:46:39 08/27/19 23 08/28/2022 COMPR EHENS KATHY METAB OLIC PANEL sodium 142 mmol/ L 135-14 6 normal Not Available [address] [address] [place], [address], 08/28/2022 09:46:39 08/27/19 23 08/28/2022 COMPR EHENS KATHY METAB OLIC PANEL potassium 3.5 mmol/ L 3.5-5. 3 normal Not Available [address], [address], 08/28/2022 09:46:39 08/27/19 23 08/28/2022 COMPR EHENS KATHY METAB OLIC PANEL chloride 102 mmol/ L 98-110 normal Not Available [address], [address], 08/28/2022 09:46:39 08/27/19 23 08/28/2022 COMPR EHENS KATHY METAB OLIC PANEL carbon dioxide 30 mmol/ L 20-32 normal Not Available [address], [address], 08/28/2022 09:46:39 08/27/19 23 08/28/2022 COMPR EHENS KATHY METAB OLIC PANEL calcium 8.8 mg/dL 8.6-10 .4 normal Not Available [address], [address], 08/28/2022 09:46:39 08/27/19 23 08/28/2022 COMPR EHENS KATHY METAB OLIC PANEL protein, total 6.0 g/dL 6.1-8. 1 low Not Available [address], [address], 08/28/2022 09:46:39 08/27/19 23 08/28/2022 COMPR EHENS KATHY METAB OLIC PANEL albumin 4.0 g/dL 3.6-5. 1 normal Not Available [address], [address], 08/28/2022 09:46:39 08/27/19 23 08/28/2022 COMPR EHENS KATHY METAB OLIC PANEL globulin 2.0 g/dL_ (calc ) 1.9-3. 7 normal Not Available [facility] [address] [place], [address], 08/28/2022 09:46:39 08/27/19 23 08/28/2022 COMPR EHENS KATHY METAB OLIC PANEL albumin/glob ulin ratio 2.0 (calc ) 1.0-2. 5 normal Not Available [address], [address], 08/28/2022 09:46:39 08/27/19 23 08/28/2022 COMPR EHENS KATHY METAB OLIC PANEL bilirubin, total 0.5 mg/dL 0.2-1. 2 normal Not Available [address], [address], 08/28/2022 09:46:39 08/27/19 23 08/28/2022 COMPR EHENS KATHY METAB OLIC PANEL alkaline phosphatase 58 U/L 37-153 normal Not Available [address], [address], 08/28/2022 09:46:39 08/27/19 23 08/28/2022 COMPR EHENS KATHY METAB OLIC PANEL AST 18 U/L 10-35 normal Not Available [address], [address], 08/28/2022 09:46:39 08/27/19 23 08/28/2022 COMPR EHENS KATHY METAB OLIC PANEL ALT 28 U/L 6-29 normal Not Available [address], [address], 08/28/2022 09:46:39 08/27/19 23 08/28/2022 ALBUM IN, RANDO M URINE W/CRE ATINI NE creatinine, random urine 132 mg/dL 20-275 normal Not Available [address], [address], 08/28/2022 09:46:40 08/27/19 23 08/28/2022 ALBUM IN, RANDO M URINE W/CRE ATINI NE albumin, urine 1.4 mg/dL see note: normal Refer ence Range : Refer ence Range Not estab lishe d Not Available [address], [address], 08/28/2022 09:46:40 08/27/19 23 08/28/2022 ALBUM IN, RANDO M URINE W/CRE ATINI NE albumin/crea tinine ratio, random urine 11 mcg/m g_cre at <30 normal The ADA defin es abnor malit ies in album in excre tion as follo ws: Album inuri a Categ ory Resul t (mcg/ mg creat inine ) Alpa l to Mildl y incre ased <30 Moder ately incre ased 30-29 9 Sever maury incre ased > OR = 300 The ADA recom mends that at least two of three speci mens colle cted withi n a 3-6 month perio d be abnor mal befor e consi marshall g a patie nt to be withi n a diagn ostic categ ory. Not Available [address], [address], 08/28/2022 09:46:40 08/27/19 23 08/28/2022 THYRO ID PEROX IDASE ANTIB ODIES thyroid peroxidase antibodies <1 IU/mL <9 Not Available [address], [address], 08/28/2022 09:46:41 08/27/19 23 08/28/2022 T3, FREE T3, free 3.4 pg/mL 2.3-4. 2 normal Not Available [address], [address], 08/28/2022 09:46:41 08/27/19 23 08/28/2022 TSH+F REE T4 TSH 3.52 mIU/L 0.40-4 .50 normal Not Available [facility] [address] [address], [place], [address], 08/28/2022 09:46:42 08/27/1908/28/2022 TSH+F REE T4 T4, free 1.0 NG/dL 0.8-1. 8 normal Not Available [facility] [address] [address], [place], [address], 08/28/2022 09:46:42 08/27/1908/28/2022 HEMOG LOBIN A1C hemoglobin A1C 7.4 %_of_ total _HGB <5.7 high For someo ne witho ut known diabe kelly, a hemog lobin A1c value of 6.5% or great er indic ates that they may have diabe kelly and this shoul d be confi rmed with a follo w-up test. For someo ne with known diabe kelly, a value <7% indic ates that their diabe kelly is well contr olled and a value great er than or equal to 7% indic ates subop timal contr ol. A1c targe ts shoul d be indiv idual ized based on durat ion of diabe kelly, age, comor bid condi tions , and other consi derat ions. Curre ntly, no conse nsus exist s carmine fritz use of hemog lobin A1c for diagn osis of diabe kelly for child amy. Not Available [facility] [address] [place], [address], 08/28/2022 09:46:42 Result Notes None recorded. Problems Name Problem SNOMED Code Status Onset Date Resolution Date Notes Provider Name and Address Organization Details Recorded Time Uncontrolled type 2 diabetes mellitus 595551507 Active 2021 Not Available [facility] 17:46:34 Vitamin B12 deficiency (non anemic) 47084011 Active 2022 Not Available [facility] 17:46:34 Hypothyroidis m 20876379 Active 2022 Not Available [facility] 17:46:34 Dyslipidemia 851329365 Active 2022 Not Available [facility] 17:46:34 Problem Notes None recorded. 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 Procedure Notes None recorded. Medical Equipment None Reported. Medications Name Sig Start Date Stop Date Status Note LastModified by Organization Details LastModified Time Prescriptio n - Prior Authorizati on Request active Not Available Not Available N ot Available losartan 50 mg tablet TAKE 1 TABLET BY MOUTH DAILY active Not Available Not Available No t Available metformin 500 mg tablet TAKE 1 TABLET BY MOUTH TWICE A DAY WITH MEALS 10/28 completed Not Available Not Available Not Available prednisone 10 mg tablet 09/02 completed Not Available Not Available Not Available doxycycline hyclate 100 mg capsule TAKE 1 CAPSULE BY MOUTH TWICE DAILY FOR 5 DAYS 09/02 completed Not Available Not Available Not Available atorvastati n 20 mg tablet active Not Available Not Available Not Available azithromyci n 250 mg tablet FOLLOW PACKAGE DIRECTION S 09/02 completed Not Available Not Available Not Available fluconazole 150 mg tablet TK 1 T PO D PRF YEAST INFECTION OR SYMPTOMS active Not Available Not Available No t Available valacyclovi r 1 gram tablet TAKE 2 TABLETS BY MOUTH EVERY 12 HOURS 11/08 completed Not Available Not Available Not Available hydrocodone 5 mg-acetamin ophen 325 mg tablet TAKE 1 TABLET BY MOUTH EVERY 6 HOURS NEEDED FOR PAIN 09/02 completed Not Available Not Available Not Available fluconazole 200 mg tablet 11/08 completed Not Available Not Available Not Available meloxicam 15 mg tablet TAKE 1 TABLET BY MOUTH DAILY active Not Available Not Available No t Available ondansetron HCl 4 mg tablet TAKE 1 TABLET BY MOUTH EVERY 6 HOURS NEEDED FOR NAUSEA OR VOMITING 10/15 completed Not Available Not Available Not Available glimepiride 2 mg tablet active Not Available Not Available Not Available amoxicillin 875 mg tablet TAKE 1 TABLET BY MOUTH EVERY 12 HOURS FOR 10 DAYS 11/08 completed Not Available Not Available Not Available alprazolam 0.25 mg tablet TAKE 1 TO 2 TABLETS BY MOUTH BEFORE PROCEDURE /TEST 01/01 completed Not Available Not Available Not Available dexamethaso ne 1 mg tablet TAKE 1 TABLET BY MOUTH AT 10PM THE NIGHT BEFORE 8AM CORTISOL 09/02 completed Not Available Not Available Not Available meclizine 25 mg tablet TAKE 1 TABLET BY MOUTH THREE TIMES DAILY NEEDED FOR DIZZINESS active Not Available Not Available No t Available benzonatate 100 mg capsule TAKE 1 CAPSULE BY MOUTH THREE TIMES DAILY NEEDED FOR COUGH 09/02 completed Not Available Not Available Not Available cephalexin 500 mg capsule TAKE 1 CAPSULE BY MOUTH EVERY 12 HOURS FOR 7 DAYS active Not Available Not Available No t Available cyanocobala min (vit B-12) 1,000 mcg/mL injection solution Inject 1 mL every week by subcutane ous route in the morning for 90 days. 2022 active Not Available Not Available Not Avai lable metformin 1,000 mg tablet active Not Available Not Available Not Available esomeprazol e magnesium 40 mg capsule,del ayed release TAKE 1 CAPSULE BY MOUTH TWICE DAILY active Not Available Not Available No t Available clotrimazol e-betametha sone 1 %-0.05 % topical cream APPLY TOPICALLY TO THE AFFECTED AREA TWICE DAILY FOR 2 WEEKS 09/02 completed Not Available Not Available Not Available hyoscyamine 0.125 mg sublingual tablet DISSOLVE 1 TO 2 TABLETS UNDER TONGUE EVERY 4 TO 8 HOURS OR NEEDED. MAX OF 12 TABLETS IN 24 HOURS active Not Available Not Available No t Available losartan 25 mg tablet TAKE 1 TABLET BY MOUTH DAILY 01/01 completed Not Available Not Available Not Available Synthroid 75 mcg tablet Take 1 tablet every other day by oral route in the morning for 90 days. active Not Available Not Available No t Available Synthroid 50 mcg tablet Take 1 tablet every other day by oral route in the morning for 90 days. active Not Available Not Available No t Available docusate sodium 100 mg capsule TAKE 1 CAPSULE BY MOUTH TWICE DAILY 09/02 completed Not Available Not Available Not Available gabapentin 300 mg capsule TAKE INSTRUCTE D BY YOUR PRESCRIBE R active Not Available Not Available No t Available mupirocin 2 % topical ointment BINTA SML AMT EXT AA BID 11/08 completed Not Available Not Available Not Available ibuprofen 600 mg tablet TAKE 1 TABLET BY MOUTH EVERY 6 HOURS NEEDED FOR PAIN 09/02 completed Not Available Not Available Not Available estradiol 0.01% (0.1 mg/gram) vaginal cream INSERT 2 GRAMS VAGINALLY EVERY DAY NEEDED active Not Available Not Available No t Available scopolamine 1 mg over 3 days transdermal patch APPLY 1 PATCH TOPICALLY TO THE SKIN EVERY 3 DAYS 09/02 completed Not Available Not Available Not Available methylpredn isolone 4 mg tablets in a dose pack FOLLOW PACKAGE DIRECTION S 09/02 completed Not Available Not Available Not Available albuterol sulfate HFA 90 mcg/actuati on aerosol inhaler INHALE 2 PUFFS BY MOUTH EVERY 4 HOURS NEEDED FOR SHORTNESS OF BREATH OR WHEEZING active Not Available Not Available No t Available ondansetron 4 mg disintegrat ing tablet DISSOLVE 1 TABLET BY MOUTH ON THE TONGUE THEN SWALLOW EVERY 6 HOURS NEEDED FOR NAUSEA AND VOMITING 09/02 completed Not Available Not Available Not Available fluticasone propionate 50 mcg/actuati on nasal spray,suspe nsion SHAKE LIQUID AND USE 2 SPRAYS IN EACH NOSTRIL DAILY 09/02 completed Not Available Not Available Not Available metformin ER 500 mg tablet,exte nded release 24 hr active Not Available Not Available Not Available naproxen 500 mg tablet TAKE 1 TABLET BY MOUTH TWICE DAILY 09/02 completed Not Available Not Available Not Available metoclopram bryon 10 mg tablet TAKE 1 TABLET BY MOUTH EVERY DAY AT BEDTIME NEEDED FOR NAUSEA OR VOMITING active Not Available Not Available No t Available amoxicillin 875 mg-potassiu m clavulanate 125 mg tablet TAKE 1 TABLET BY MOUTH TWICE DAILY 02/18 completed Not Available Not Available Not Available enoxaparin 40 mg/0.4 mL subcutaneou s syringe 09/02 completed Not Available Not Available Not Available escitalopra m 10 mg tablet TAKE 1 TABLET BY MOUTH EVERY DAY active Not Available Not Available No t Available metaxalone 800 mg tablet TAKE 1 TABLET BY MOUTH THREE TIMES DAILY NEEDED 01/01 completed Not Available Not Available Not Available nitrofurant oin monohydrate /macrocryst als 100 mg capsule TAKE 1 CAPSULE BY MOUTH EVERY 12 HOURS FOR 5 DAYS 09/02 completed Not Available Not Available Not Available duloxetine 30 mg capsule,del ayed release TAKE 1 CAPSULE DAILY IN THE MORNING active Not Available Not Available No t Available duloxetine 60 mg capsule,del ayed release TAKE 1 CAPSULE BY MOUTH DAILY active Not Available Not Available No t Available OneTouch UltraSoft Lancets 09/02 completed Not Available Not Available Not Available omega-3 acid ethyl esters 1 gram capsule Take 2 capsules twice a day by oral route with meals for 90 days. 12/19 completed Not Available Not Available Not Available fenofibrate 160 mg tablet active Not Available Not Available Not Available metformin ER 500 mg 24 hr tablet,exte nded release (gastric retention) Take 1 tablet every day by oral route at dinner for 90 days. active Not Available Not Available No t Available cholecalcif bal (vitamin D3) 25 mcg (1,000 unit) tablet TAKE 1 TABLET BY MOUTH EVERY NIGHT AT BEDTIME active Not Available Not Available No t Available hydrochloro thiazide 12.5 mg tablet TAKE 1 TABLET BY MOUTH DAILY active Not Available Not Available No t Available Humalog KwikPen (U-100) Insulin 100 unit/mL subcutaneou s INJECT 16 UNITS UNDER THE SKIN THREE TIMES A DAY BEFORE MEALS 2022 active Not Available Not Available Not Avai lable Lite Touch Insulin Pen Warren 31 gauge x 5/16 09/02 completed Not Available Not Available Not Available OneTouch Verio test strips Take 1 strip 3 times a day by miscell. route before meals for 90 days. active Not Available Not Available No t Available BD Insulin Syringe Ultra-Fine 1 mL 31 gauge x 07/23 inject 1 CC B12 SQ once weekly x 90 days active Not Available Not Available No t Available Victoza 3-Romeo 0.6 mg/0.1 mL (18 mg/3 mL) subcutaneou s pen injector INJECT 1.2 MG UNDER THE SKIN DAILY IN 10/28 completed Not Available Not Available Not Available Farxiga 10 mg tablet TAKE 1 TABLET BY MOUTH EVERY DAY active Not Available Not Available No t Available Trulicity 0.75 mg/0.5 mL subcutaneou s pen injector INJECT 0.75 MG SUB-Q WEEKLY 10/28 completed Not Available Not Available Not Available Tresiba FlexTouch U-200 insulin 200 unit/mL (3 mL) subcutaneou s pen INJECT 60 UNITS UNDER THE SKIN DAILY AT BEDTIME active Not Available Not Available No t Available Fiasp FlexTouch U-100 Insulin 100 unit/mL (3 mL) subcutaneou s pen INJECT 16 UNITS UNDER THE SKIN THREE TIMES A DAY BEFORE MEALS active Not Available Not Available No t Available Ozempic 0.25 mg or 0.5 mg (2 mg/1.5 mL) subcutaneou s pen injector Inject 0.5 mg every week by subcutane ous route at dinner for 90 days. 2022 active Not Available Not Available Not Avai lable OneTouch Ultra Blue Test Strip 09/02 completed Not Available Not Available Not Available Dexcom G6 Sensor device CHANGE EVERY 10 DAYS active Not Available Not Available No t Available Dexcom G6 Transmitter device active Not Available Not Available Not Available BD Cyn 2nd Gen Pen Needle 32 gauge x 5/32 USE INSTRUCTE D BY YOUR PRESCRIBE R active Not Available Not Available No t Available OneTouch Ultra2 Meter 09/02 completed Not Available Not Available Not Available OneTouch Delica Plus Lancet 33 gauge 09/02 completed Not Available Not Available Not Available Afluria Qd (36 mos up)(PF)60 mcg (15 mcg x4)/0.5 mL IM syringe ADM 0.5ML IM UTD 09/02 completed Not Available Not Available Not Available Fluarix Quad (PF) 60 mcg (15 mcg x 4)/0.5 mL IM syringe ADM 0.5ML IM UTD active Not Available Not Available No t Available Ozempic 1 mg/dose (4 mg/3 mL) subcutaneou s pen injector Inject 1 mg every week by subcutane ous route at dinner for 90 days. 11/15 completed Not Available Not Available Not Available Flowflex COVID-19 Antigen Home Test kit 09/02 completed Not Available Not Available Not Available Mounjaro 7.5 mg/0.5 mL subcutaneou s pen injector Inject 7.5 mg every week by subcutane ous route at dinner for 28 days. 08/02 completed Not Available Not Available Not Available Mounjaro 5 mg/0.5 mL subcutaneou s pen injector Inject 5 mg every week by subcutane ous route at dinner for 90 days. 08/02 completed Not Available Not Available Not Available Mounjaro 15 mg/0.5 mL subcutaneou s pen injector Inject 15 mg every week by subcutane ous route at dinner for 90 days. 2022 active Not Available Not Available Not Avai lable Mounjaro 12.5 mg/0.5 mL subcutaneou s pen injector Inject 12.5 mg every week by subcutane ous route at dinner for 90 days. active Not Available Not Available No t Available Mounjaro 2.5 mg/0.5 mL subcutaneou s pen injector Inject 2.5 mg every week by subcutane ous route at dinner for 30 days. 08/02 completed Not Available Not Available Not Available Ozempic 0.25 mg or 0.5 mg (2 mg/3 mL) subcutaneou s pen injector Inject 0.5 mg every week by subcutane ous route as directed for 90 days. 2022 active Not Available Not Available Not Avai lable Vitals Date Recorded Body mass index (BMI) Body height Oxygen saturation Oxygen saturation in Arterial blood by Pulse oximetry Heart rate Body temperature Body weight Systolic And Diastolic Provider Name and Address Organization Details Last Updated DateTime 2 32.6 kg/m2 162.56 cm 96 % 96 % 95 /min 97.7 [degF] 89087.5 5 g 120/80 mm[Hg] Not Available [facility] 3 04:27:03 Date Recorded Body height Body mass index (BMI) Body weight Body temperature Provider Name and Address Organization Details Last Updated DateTime 09/02/2022 162.56 cm 33.2 kg/m2 20883.76 g 97.8 [degF] Emmanuelle Francisca [place] - [facility] 09/02/2022 09:37:13 Date Recorded Body mass index (BMI) Body height Oxygen saturation Oxygen saturation in Arterial blood by Pulse oximetry Heart rate Body temperature Body weight Systolic And Diastolic Provider Name and Address Organization Details Last Updated DateTime 2 32.8 kg/m2 162.56 cm 95 % 95 % 98 /min 97.7 [degF] 15335.4 2 g 120/75 mm[Hg] Not Available [facility] 3 04:27:03 Date Recorded Body mass index (BMI) Body height Oxygen saturation Oxygen saturation in Arterial blood by Pulse oximetry Heart rate Body temperature Body weight Systolic And Diastolic Provider Name and Address Organization Details Last Updated DateTime 1 31.2 kg/m2 162.56 cm 95 % 95 % 81 /min 98.7 [degF] 77615.8 1 g 130/70 mm[Hg] Not Available [facility] 3 04:27:03 Date Recorded Body mass index (BMI) Body height Oxygen saturation Oxygen saturation in Arterial blood by Pulse oximetry Heart rate Body temperature Body weight Systolic And Diastolic Provider Name and Address Organization Details Last Updated DateTime 2 33.4 kg/m2 162.56 cm 93 % 93 % 91 /min 97.2 [degF] 49902.7 9 g 130/80 mm[Hg] Not Available [facility] 3 04:27:03 Social History Question Answer Notes LastModified by Organizat ion Details LastModified Time Tobacco Smoking Status Former Smoker Not Available [facility] 05/08/2022 04:12:41 What Is Your Level Of Caffeine Consumption? Moderate [id number] Information not available 05/08/2022 How Much Tobacco Do You Chew? None [id number] Information not available 05/08/2022 In The 14 Days Before Symptom Onset, Have You Had Close Contact With A Laboratory-confirm ed COVID-19 While That Case Was Ill? No [id number] Information not available 05/08/2022 In The 14 Days Before Symptom Onset, Have You Had Close Contact With A Person Who Is Under Investigation For COVID-19 While That Person Was Ill? No [id number] Information not available 05/08/2022 Which Illicit Or Recreational Drugs Have You Used? None [id number] Information not available 05/08/2022 Sex: Unknown Functional Status Question Answer Note LastModified by Organizat ion Details LastModified Time What is your level of alcohol consumption? Occasional [id number] Information not available 05/08/2022 Do you or have you ever used smokeless tobacco? 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 Never used electronic cigarettes [id number] Information not available 05/08/2022 Mental Status None recorded. Family History Relationship Description Onset Age of this Age Resolved Age Notes LastModified by Organization Details LastModified Time Father Chronic obstructive pulmonary disease [id number] Not available 05/08/2022 04:24:44 Father Asbestosis [id number] Not available 05/08/2022 04:24:44 Father Hypertriglyc eridemia [id number] Not available 05/08/2022 04:24:44 Mother Chronic obstructive pulmonary disease [id number] Not available 05/08/2022 04:24:44 Medical History Condition Response CANCER: SPECIFY Y GERD/NAUSEA Y HYPOTHYROIDISM Y DIABETES, TYPE Y HAVE YOU BEEN HOSPITALIZED OR SEEN IN [facility] ER IN THE PAST YEAR ? Y RADIATION / CHEMOTHERAPY Y HYPERTENSION Y HIGH CHOLESTEROL / HYPERLIPIDEMIA Y Gynecological HistoryNo gynecological history recorded. Obstetrics History GPAL:G 0 P 0 0 0 0 Past Encounters Encounter ID Performer Location Encounter Start Date Encounter Closed Date Diagnosis/Indication Diagnosis SNOMED-CT Code Diagnosis ICD10 Code Diagnosis IMO Codes Diagnosis Note [id number] Vivian Navarrete MD [facility] [place] [address] [place] [address] 07/03/2020 00:00:00 07/03/2020 09:54:28 [id number] Vivian Navarrete MD [facility] [place] [address] [place] [address] 01/01/2021 00:00:00 01/01/2021 10:06:34 [id number] Vivian Navarrete MD [facility] [place] [address] [place] [address] 07/02/2021 00:00:00 07/02/2021 10:01:55 [id number] [facility] [place] [address] [place] [address] 10/15/2021 00:00:00 10/15/2021 14:19:21 [id number] [facility] [place] [address] [place] [address] 02/18/2022 00:00:00 02/18/2022 15:22:37 [id number] Vivian Navarrete MD [facility] [place] [address] [place] [address] 09/02/2022 09:22:39 09/02/2022 10:14:32 Uncontrolled type 2 diabetes mellitus 535172273 E11.65 a1c of 7.4% down from 8.4%-trans ition to ozempic as pharmacy was out of [facility] he is aware to start at 0.25 mg once weekly x 4 weeks then increase to 0.5 mg once weekly thereafter with large meal. Continue on metformin ER 500 mg twice daily with meals. Continue on tresiba to 56 units at bedtime and increase by 6 units every 4 days until fasting glucose 90-130 mg/dL. Recommende d she tighten her humalog scale to 1:5 along with correction of 2:50>150 mg/dL on premeal sugars. Continue to hold farxiga due to yeast infections . Hypothyroidism 13394402 E03.9 Will uptitrate her synthroid to 50 mcg every other day with 75 mcg every other day. She was reminded to take her synthroid on empty stomach with glass of water and wait one hour to eat or have her coffee in morning and up to 4 hours if ever taking any heartburn or reflux medication s to help optimize absorption . Discussed paleo like diet with restrictio n of GMOs to help with energy and to optimize absorption of vitamins and minerals and reduce inflammati on. Spent up to 25 minutes preparing to see the patient (eg, review of tests), obtaining and/or reviewing separately obtained history, performing a medically appropriat e examinatio n and evaluation , counseling and educating the patient, ordering medication s, tests, along with documentin g clinical informatio n in the electronic health record, independen tly interpreti ng results and communicat ing results to the patient. RTC in 4-6 months. Patient was provided a handwritte n lab order which contains our fax number. If she chooses to go outside of the [facility] system to obtain labwork she was advised to provide our fax number and my informatio n to the lab she will be obtaining labwork from in order to have her labs properly forwarded over for me to review so there is no loss of follow up due to use of outside network. She was also advised to contact our clinic informing us that she has completed her labwork so we are aware we will need to reach out to the appropriat e laboratory to request her results be forwarded to us so I might have the ability to review and make further medical decision making in her case. She voiced understand ing. Health Concerns Section Related Observation LastModified by Organization Detai ls LastModified Time None Recorded Concern Status LastModified by Organization Details LastModified Time None Recorded Advance Directives Directive None Recorded Payers Insurance Date Sequence Insurance Name Policy Number Policy Montez Covered Member ID Montez Member ID Guarantor Name 02/05/2023 1 [facility] [employer] MANAGEMENT (PPO) [id number] Rola Zaragoza [id number] Rola Zaragoza 02/05/2023 [facility] Rola Zaragoza SELF SELF Rola Zaragoza Notes Date Note Type Note Provider Name and Address Organization Details Recorded Time 09/02/2022 text/html ROS as noted in the HPI 62 yo female comes in for follow up in management of better controlled type 2 DM (A1C of 7.4% down from 8.4%), mixed dyslipidemia and hypothyroidism. last seen in Feb at that time we increased her mounjaro to 7.5 mg once weekly and continue on metformin ER 500 mg twice daily with meals. We had patient continue on tresiba to 56 units at bedtime and increase by 6 units every 4 days until fasting glucose 90-130 mg/dL. Recommended she tighten her humalog scale to 1:5 along with correction of 2:50>150 mg/dL on premeal sugars. We cannot do farxiga due to yeast infections. DST negative however cortisol 1.2 ug/dL so repeat in 6-12 months we continued synthroid 50 mcg daily and statin/fenofibrate. she was at the 12.5 mg dose of mounjaro as this is on backorder. Her fasting glucose is running around 150 mg/dL and less-today was higher- hasn't had any food to eat this morning. She is injecting her humalog prior to meals - up to 10 unitslabs from 08/26/22:glucose 159 mg/dLCr normalLFT [id number] C of 7.4%TSH of 3.52 uIU/mlFT4 of 1.0 ng/dlFT3 of 3.4 pg/mLTPO negmicroalbumin 11 ug/mg Vivian Navarrete MD [address] [facility], [address], [place], [address], [place] [employer] [facility] 09/02/2022 14:16:54 OBGyn Episode No OBEpisode recorded.
--- OUTSIDE RECORDS SUMMARY | 2024-12-30 16:43 | XMS_ITS | Clinical Summary ---
Author Organization [facility] [employer] Address [address] [place] [address] Care Team Providers Care Quality Control Auditor Name Role Phone Royal Hernandez MD Primary Care Provider [phone] Source Comments [facility] [employer],non-owned Affiliates and Associated Physician Practices is amultiple site organization consisting of ambulatory clinics and hospital sitesin [place], [place], [place] and [place]. This disclosure is being madepursuant to the Care Everywhere program and may not contain all information available regarding this patient. 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 Inhaled Oxygen Concentration - - Weight 78 [...] patient's age to complete this topic Insurance [facility] * Guarantor: ROLA MANJARREZ Account Type Relation to Patient Date of Phone Billing Address Personal/Family [address] [place] [address] [facility] SELF PAY NO INSURANCE Member Subscriber Plan / Payer (Ef fective for All Dates) Name:MacekNoreenRola Member ID:Not on file Relation to Subscriber:Not on file Name:NOREEN MANJARREZNDA Subscriber ID:Not on file Address: [address], [id number] Payer ID:Not on file Group ID:Not on file Type:Self Pay Address: [place], [place] * Guarantor: MACEK,ROLA Account Type Relation to Patient Date of Phone Billing Address Personal/Family [address], [phone] SELF PAY NO INSURANCE Member Subscriber Plan / Payer (Ef fective for All Dates) Name:MacekNoreenRola Member ID:Not on file Relation to Subscriber:Not on file Name:NOREEN MANJARREZNDA Subscriber ID:Not on file Address: [address], [facility] Payer ID:Not on file Group ID:Not on file Type:Self Pay Address: [place], [place] * Guarantor: LOKIROLA Account Type Relation to Patient Date of Phone Billing Address Personal/Family [address], [phone] [employer] SELF PAY NO INSURANCE Member Subscriber Plan / Payer (Ef fective for All Dates) Name:Macek Rola Member ID:Not on file Relation to Subscriber:Not on file Name:MACEKROLA Subscriber ID:Not on file Address: [address] [place] [address] [place] [address] Payer ID:Not on file Group ID:Not on file Type:Self Pay Address: [place], [place] Care Teams Quality Control Auditor Relationship Specialty Start Date End Date Royal Hernandez MD [address] [place] [address] PCP - General Family Medicine 08/19/17
== END 2024-12-30 15:59 | disposition home or self-care (01) ==
PROVIDERS: PCP Family Medicine; Visit Provider Family Medicine
DX: Z87.01 Personal history of pneumonia (recurrent) (principal)
CPT/HCPCS: 71250

== ENCOUNTER 2025-02-28 10:43 | Emergency (ER) | payer OTHER, SELFPAY ==
--- NOTE | 2025-02-28 11:15 | PC.NURSE ---
Pt states she didn't want to wait any longer. pt left from waiting room.
== END 2025-02-28 11:15 | disposition left against medical advice (07) ==
PROVIDERS: Emergency Provider Nurse Practitioner; PCP Family Medicine
DX: Z53.21 Procedure and treatment not carried out due to patient leaving prior to being seen by health care provider (principal)
CPT/HCPCS: 99199

== ENCOUNTER 2025-02-28 13:47 | Emergency (ER) | payer OTHER, SELFPAY ==
[2025-02-28 14:00] VITALS: BP 134/68; PULSE 87; RESP 16; TEMP 36.2; O2SAT 97
--- NOTE | 2025-02-28 14:36 | ED_ITS ---
HPI - Ear Problem General Chief complaint: Ear Stated complaint: Ear Pain Time Seen by Provider: 02/28/25 14:36 Source: patient and RN notes reviewed Mode of arrival: ambulatory Limitations: no limitations History of Present Illness HPI Narrative: 64 old female presents with nasal congestion and right ear pain. Reports she has had nasal congestion for about 2-3 days ear pain started today. She denies drainage from the ear hearing problems. Denies fever. She said she had ear infections as a child. MD Complaint: ear pain Related Data Home Medications ?Medication ?Instructions ?Recorded ?Confirmed ?Last Taken ?Type metoclopramide HCl 10 mg tablet 10 mg PO DAILY PRN Chauncey sea 09/19/23 02/28/25 Unknown History Allergies Allergy/AdvReac Type Severity Reaction Status Date / Time codeine AdvReac Mild Nausea Verified 02/28/25 13:59 hydrocodone AdvReac Mild Nausea and Verified 02/28/25 13:59 Vomiting hydromorphone AdvReac Mild Nausea and Verified 02/28/25 13:59 Vomiting lisinopril AdvReac Mild Cough Verified 02/28/25 13:59 morphine AdvReac Mild Nausea and Verified 02/28/25 13:59 Vomiting Opioids - Morphine Analogues AdvReac Mild Nausea and Verified 02/28/25 13:59 Vomiting oxycodone AdvReac Mild Nausea and Verified 02/28/25 13:59 Vomiting Review of Systems Review of Systems: CONSTITUTIONAL: Denies malaise, chills, sweats, or fever. EYES: Denies visual changes, redness, or discharge. ENT: Reports rhinorrhea, congestion. Denies sinus pain, and sore throat. Reports right ear pain CARDIOVASCULAR: Denies chest pain, palpitations, or edema. RESPIRATORY: Denies cough. Denies dyspnea. GASTROINTESTINAL: Denies abdominal pain, nausea, vomiting, diarrhea SKIN: Denies rash or itching. MUSCULOSKELETAL: Denies myalgia. NEUROLOGIC: Denies headache. All systems reviewed & are unremarkable except as noted in HPI and below PMFSH Past Medical History Medical History Wound of foot Adhesive capsulitis of right shoulder Hemoglobin A1c less than 7.0% 03/25/20 A1C = 6.6 delivery delivered 1988 and 1992 Breast cancer HTN (hypertension) Hypothyroidism Hyperlipidemia Diabetes mellitus, new onset Surgical History Surgical History Status post breast reduction (~06/2021) History of hernia surgery (~2016) History of lumpectomy of right breast (~2012) H/O: hysterectomy (~2010) Total Family History Family History Father Diabetes mellitus Family history of lung cancer Family history of coronary artery disease Grandparent Cerebrovascular accident Family history of lung cancer Other Family history of chronic obstructive pulmonary disease Social History Social History Smoking packs per day: 1 Smoking cigarettes per day: 20.0 Years smoked: 30 Smoking pack-years: 30.00 Smoking status: Former smoker Tobacco type: cigarettes Second hand tobacco smoke exposure: No Smoking end date: 03/10/08 Alcohol intake: current Alcohol use details: rarely Substance use: never Substance use type: does not use Lack of Transportation: No Lack of Food: Never True Current Housing: I Have Housing Concerned About Future Housing: No Difficulty Paying Gas/Electric Bills: No Difficulty Paying for Meds: No Currently Unemployed: No Education: High School Diploma/GED Difficulty w/ Childcare or Family Care: No Living arrangements: with family Additional living arrangements comments: LIVES WTIH SIGNIFICANT OTHER Occupation/Education: occupation Additional occupation/education comments: [employer] Gender identity (if verbalized by the patient): Female Sexual Orientation (if Verbalized by the Patient): Straight or Heterosexual Spiritual care concerns: No Comments At time of signature, agree with nursing past medical, surgical, social and family history. There is no relevant family history pertinent to the presenting complaint Exam Narrative: GENERAL: Well-appearing, well-nourished, and in no acute distress. HEAD: Normocephalic EYES: PERRLA, conjunctivae clear ENT: Nares clear. Mucous membranes moist. TM pearly farooq with dull light reflex bilaterally; no tragal tenderness, EAC unremarkable. No post or pre-auricular erythema, induration, or warmth noted. Oropharynx not erythematous without lesions. Tonsils not enlarged and without exudate, no drooling, no hoarseness, no trismus, uvula midline. NECK: Supple. No lymphadenopathy CHEST: Clear to auscultation, breath sounds equal. No wheezing, rhonchi, rales, or stridor. No respiratory distress, speaks in full sentences. HEART: Regular rate and rhythm. No murmur heard. SKIN: Warm, dry, no rash. NEURO: Alert and oriented x3. PSYCH: Normal mood and affect Course Course Emergency Course: Patient is aware of diagnosis, understands and agrees to treatment plan. Anticipatory guidance given. Patient agrees to follow-up as directed and is aware of reasons to seek care at the emergency department. Portions of this record may have been created with voice recognition software Level of Care: Express Care Visit Vital Signs Vital signs: Vital Signs Temperature 97.2 F L 02/28/25 14:00 Pulse Rate 87 02/28/25 14:00 Respiratory Rate 16 02/28/25 14:00 Blood Pressure 134/68 02/28/25 14:00 Pulse Oximetry 97 02/28/25 14:00 Temperature 97.2 F L 02/28/25 14:00 Pulse Rate 87 02/28/25 14:00 Respiratory Rate 16 02/28/25 14:00 Blood Pressure 134/68 02/28/25 14:00 Pulse Oximetry 97 02/28/25 14:00 MDM Differential Diagnosis Differential Diagnosis: Differential diagnosis considered: Boyce virus, strep pharyngitis, allergic rhinitis, upper respiratory tract infection, sinusitis, rhinosinusitis, nasopharyngitis. viral pharyngitis, otitis media, otitis externa, mastoiditis, eustachian tube dysfunction, cerumen impaction, cellulitis, foreign body, viral syndrome, and influenza. Exam findings show no acute concerns or changes; patient is non-toxic appearing and is in no distress. Patient is appropriate for outpatient treatment and follow-up. Discharge Plan Discharge Clinical Impression: Upper respiratory infection Patient Disposition: Home Condition: Stable Instructions: Upper Respiratory Infection (ED), Fluid In The Ear (Serous Otitis Media) (ED) Additional Instructions: Viral illness may last between 7-21 days; antibiotics do not cure viral illness and are NOT recommended at this time. Recommend antihistamine such as Benadryl at night time and Zyrtec or Catherine during the day Also, recommend symptomatic treatment includes: rest, fluids, and increase humidity of the air at home. Recommend Acetaminophen as directed on the bottle to reduce fever, pain, headache. Avoid smoking/second-hand smoke. Please schedule a follow-up visit with your personal physician for further evaluation and treatment within 3-5days. Including recheck and discussion of your blood pressure. If your symptoms persist, change or worsen significantly be fore you can contact your personal physician then please, without delay, go to the emergency department for further evaluation. Patient Language: Turkmen Prescriptions: New methylprednisolone [Medrol (Romeo)] 4 mg tablets,dose pack See Rx Instructions .ROUTE .COMPLEX Qty: 21 0RF Rx Instructions: orally per package directions No Action Voquezna 10 mg tablet 10 mg PO BID 90 Days Qty: 180 3RF (DME) Dexcom G7 Sensor Device See Rx Instructions .Route Qty: 9 2RF Rx Instructions: As directed (DME) OneTouch Verio test strips Strip See Rx Instructions .Route Qty: 100 4RF Rx Instructions: As directed insulin degludec [Tresiba FlexTouch U-100] 100 unit/mL (3 mL) insulin pen See Rx Instructions .ROUTE .COMPLEX Qty: 45 1RF Dose Instruction: INJECT 56 UNITS UNDER THE SKIN EVERY EVENING Rx Instructions: INJECT 56 UNITS UNDER THE SKIN EVERY EVENING losartan 100 mg tablet 100 mg PO DAILY Qty: 90 1RF amlodipine 2.5 mg tablet 2.5 mg PO DAILY Qty: 90 1RF (DME) blood sugar diagnostic Strip See Rx Instructions .ROUTE .MEDSUPPLY Qty: 100 5RF Rx Instructions: BID gabapentin 300 mg capsule 300 mg PO DAILY Qty: 90 1RF Mounjaro 15 mg/0.5 mL pen injector 15 mg subcut WEEKLY Qty: 6 1RF duloxetine 60 mg capsule,delayed release(DR/EC) 60 mg PO DAILY Qty: 90 1RF atorvastatin 20 mg tablet 20 mg PO DAILY Qty: 90 1RF Rx Instructions: TAKE 1 TABLET DAILY ergocalciferol (vitamin D2) [Vitamin D2] 1,250 mcg (50,000 unit) capsule 1,250 mcg PO WEEKLY Qty: 12 1RF levothyroxine 75 mcg tablet 75 mcg PO DAILY Qty: 90 1RF Rx Instructions: 75 mcg orally daily (DME) pen needle, diabetic [Advocate Pen Needle] 32 gauge x 5/32 needle See Rx Instructions .Route Qty: 400 2RF Rx Instructions: Use with Insulin checks 4x/day hydrochlorothiazide 12.5 mg tablet 12.5 mg PO DAILY Qty: 90 1RF metformin 500 mg tablet extended release 24 hr See Rx Instructions .ROUTE .COMPLEX Qty: 180 1RF Dose Instruction: TAKE 1 TABLET TWICE A DAY BEFORE MEALS Rx Instructions: TAKE 1 TABLET TWICE A DAY BEFORE MEALS fenofibrate 160 mg tablet 160 mg PO HS Qty: 90 1RF buspirone 7.5 mg tablet 7.5 mg PO BID Qty: 180 0RF cyanocobalamin (vitamin B-12) 1,000 mcg/mL solution 1,000 mcg IM WEEKLY Qty: 12 1RF (DME) insulin syringe-needle U-100 1 mL 31 gauge x 5/16 syringe See Rx Instructions .ROUTE .COMPLEX Qty: 10 4RF Dose Instruction: USE TO INJECT B12 WEEKLY Rx Instructions: USE TO INJECT B12 WEEKLY insulin lispro [Humalog KwikPen Insulin] 100 unit/mL insulin pen 1 sliding scale dose subcut USEASDIRECTD Qty: 45 1RF Rx Instructions: PER SLIDING SCALE: Max dose per day of Humalog is 40units. metoclopramide HCl 10 mg tablet 10 mg PO DAILY PRN (Reason: Nausea) Rx Instructions: TAKE 1 TABLET DAILY Follow-up/Referrals: Martha Milian DO [Primary Care Provider, Family Practice] Time of Disposition: 14:43
== END 2025-02-28 14:48 | disposition home or self-care (01) ==
PROVIDERS: Emergency Provider Nurse Practitioner; PCP Family Medicine
DX: J06.9 Acute upper respiratory infection, unspecified (principal); E11.9 Type 2 diabetes mellitus without complications; Z79.4 Long term (current) use of insulin; Z79.84 Long term (current) use of oral hypoglycemic drugs; Z79.85 Long-term (current) use of injectable non-insulin antidiabetic drugs; I10 Essential (primary) hypertension; E78.5 Hyperlipidemia, unspecified; E03.9 Hypothyroidism, unspecified; Z85.3 Personal history of malignant neoplasm of breast
CPT/HCPCS: 99213; G0463